=== PATIENT | male | born 1955 | race Caucasian/White ===

== ENCOUNTER 2019-03-03 23:28 | Inpatient (IN) | payer MEDICARE, OTHER ==
[~2019-03-03] VITALS: Ht 177.8 cm; Wt 110.8 kg
[2019-03-03] MEDS ORDERED: nitroGLYCERIN-Tridil 50MG/D5W 250 ML IV ONE (23:45)
[2019-03-03] MEDS ORDERED: enalaprilat dihydrate 2.5mg/2ml vial IV ONE (23:45)
[2019-03-03] MEDS ORDERED: LORazepam 2 mg/ml vial IV ONE (23:45)
[2019-03-04] VITALS (20 sets, daily range): BP systolic 102–137; BP diastolic 44–85
[2019-03-04 00:06] LABS: ABG BASE EXCESS -8.5 mmol/L (-2.0-3.0); ABG HCO3 20.2 mmol/L (22.0-26.0); ABG OXYGEN SATURATION 96.3 % (95-98); ABG PCO2 (T) 54.1 mmHg (35.0-45.0); ABG PO2 (T) 96.2 mmHg (83-108); ALLEN'S TEST Positive; FCOHb 0.7 % (0.5-1.5); FMetHb 0.3 % (0.3-1.12); FO2Hb 95.3 % (94-100); MINUTE VOLUME 24 L/min; RESPIRATORY RATE (OBSERVED) 36 b/min; TOTAL HEMOGLOBIN 14.8 G/dl (14.0-17.9)
--- NOTE | 2019-03-04 00:18 | NUR ---
KIERSTEN [phone] SON
[2019-03-04 00:19] LABS: BASOPHILS % (AUTO) 0.3 % (0-1); EOSINOPHILS # (AUTO) 0.1 X10'3 (0-0.9); EOSINOPHILS % (AUTO) 0.6 % (0-6); HEMATOCRIT 42.9 % (42.0-52.0); LYMPHOCYTES # (AUTO) 1.4 X10'3 (1.1-4.8); LYMPHOCYTES % (AUTO) 10.4 % (21-51); MEAN CORPUSCULAR HEMOGLOBIN 25.7 PG (27.0-31.0); MEAN CORPUSCULAR HGB CONC 32.7 g/dL (33.0-36.5); MEAN CORPUSCULAR VOLUME 78.7 FL (78-98); MEAN PLATELET VOLUME 10.1 FL (7.4-10.4); MONOCYTES # (AUTO) 0.8 X10'3 (0-0.9); MONOCYTES % (AUTO) 5.4 % (2-12); NEUTROPHILS # (AUTO) 11.6 X10'3 (1.8-7.7); NEUTROPHILS % (AUTO) 83.3 % (42-75); PLATELET COUNT 196 X10'3 (140-440); RED BLOOD COUNT 5.45 X10'6 (4.70-6.10); RED CELL DISTRIBUTION WIDTH 14.2 % (11.5-14.5); WHITE BLOOD COUNT 13.9 X10'3 (4.5-11.0)
--- NOTE | 2019-03-04 00:23 | NUR ---
MD MADE AWARE OF PT VSS. VERBAL ORDER TO STOP THE NITRO DRIP. DRIP STOPPED.
[2019-03-04 00:35] LABS: ALANINE AMINOTRANSFERASE 36 U/L (12-78); ALBUMIN 3.9 G/DL (3.4-5.0); ALBUMIN/GLOBULIN RATIO 1.1 (1.1-1.5); ALKALINE PHOSPHATASE 79 IU/L (46-116); ANION GAP 12 (8-16); ASPARTATE AMINO TRANSFERASE 32 U/L (10-37); BILIRUBIN,TOTAL 1.3 MG/DL (0.1-1.0); BLOOD UREA NITROGEN 12 MG/DL (7-18); BUN/CREATININE RATIO 12.9 (5.4-32.0); CALCIUM 8.7 MG/DL (8.5-10.1); CHLORIDE 99 MMOL/L (99-107); CREATININE 0.93 MG/DL (0.60-1.10); GLUCOSE 303 MG/DL (70-104); POTASSIUM 3.7 MMOL/L (3.5-5.1); SODIUM 132 MMOL/L (135-145); TOTAL CARBON DIOXIDE 21.3 MMOL/L (24-32); TOTAL PROTEIN 7.4 G/DL (6.4-8.2); eGFR 82 ML/MIN
[2019-03-04 00:36] LABS: PARTIAL THROMBOPLASTIN TIME 26 SECONDS (22-32)
--- NOTE | 2019-03-04 01:03 | NUR ---
FAMILY IN ROOM; DAUGHTER, SON-KIERSTEN,
--- NOTE | 2019-03-04 01:03 | NUR ---
MADE AWARE OF PT BLOOD PRESSURE. NO NEW ORDERS AT THIS TIME.
[2019-03-04] MEDS ORDERED: DOPamine 400mg/D5W 250ml 250 ML IV SCH (01:15)
--- NOTE | 2019-03-04 02:07 | NUR ---
CENTRAL LINE PLACEMENT CONFIRMED BY DR PINZON USING BUBBLE STUDY. PER MD, NO XRAY ORDER NEEDED TO CONFIRM.
[2019-03-04] MEDS ORDERED: AMLO-94 PO (03:18)
[2019-03-04] MEDS ORDERED: ASPI-1264 PO (03:18)
[2019-03-04] MEDS ORDERED: FLUR30CA13 PO (03:18)
[2019-03-04] MEDS ORDERED: LIT300C PO (03:18)
[2019-03-04] MEDS ORDERED: CHOL100046 PO (03:18)
[2019-03-04] MEDS ORDERED: METF500T PO (03:18)
[2019-03-04] MEDS ORDERED: NORepinephrine 8mg/ 250ml NS 250 ML IV PRN (03:21)
[2019-03-04] MEDS ORDERED: ondansetron/PF 4mg/2ml inj IV PRN (03:25)
[2019-03-04] MEDS ORDERED: MESSAGE TO PHARMACY PO ONE (03:25)
[2019-03-04] MEDS ORDERED: acetaminophen 325mg tablet PO PRN (03:25)
[2019-03-04] MEDS ORDERED: furosemide 10 MG/1 ML 10ml inj IV SCH (03:25)
[2019-03-04] MEDS ORDERED: dextrose ORAL solution 15 GM/59 ML bottle PO PRN ×2 (03:25)
[2019-03-04] MEDS ORDERED: potassium Cl 20mEq/100mL bag 100 ML IV PRN (03:25)
[2019-03-04] MEDS ORDERED: magnesium 2GM in 50ml NS 50 ML IV PRN (03:25)
[2019-03-04] MEDS ORDERED: dextrose 50%-water 50ml dispensing syringe IV PRN ×2 (03:25)
[2019-03-04] MEDS ORDERED: acetaminophen 650mg rectal suppository RC PRN (03:25)
[2019-03-04] MEDS ORDERED: glucagon, human recombinant 1mg kit SUBCUT PRN (03:25)
[2019-03-04] MEDS ORDERED: magnesium 4gm in 100ml NS 100 ML IV PRN (03:25)
[2019-03-04 04:05] LABS: PHOSPHORUS 4.4 MG/DL (2.3-4.5)
[2019-03-04 04:41] LABS: ABG BASE EXCESS -0.8 mmol/L (-2.0-3.0); ABG HCO3 24.5 mmol/L (22.0-26.0); ABG OXYGEN SATURATION 93.9 % (95-98); ABG PCO2 (T) 41.4 mmHg (35.0-45.0); ABG PH (T) 7.386 (7.350-7.450); ABG PO2 (T) 64.1 mmHg (83-108); ALLEN'S TEST Positive; FCOHb 0.5 % (0.5-1.5); FLOW 4 L/min; FMetHb 0.4 % (0.3-1.12); FO2Hb 93.1 % (94-100); PATIENT TEMPERATURE 36.1; RESPIRATORY RATE (OBSERVED) 14 b/min; TOTAL HEMOGLOBIN 13.9 G/dl (14.0-17.9)
[2019-03-04 04:56] LABS: PO2 MIXED VENOUS (TEMP COR) 37.3 mmHg (35-46)
--- NOTE | 2019-03-04 06:40 | NUR ---
Patient in room ICU 2044. I have received report from Lesli SETHI and had the opportunity to ask questions and assume patient care.
--- NOTE | 2019-03-04 06:45 | NUR ---
RECEIVED FROM ER PER BALAJI , ON NBR WITH O2 SATS AT 99 , ALERT AND ORIENTED , BUT STILL SLEEPY HE CLAIMED , ON DOPAMINE AT 3.5 MICS , WITH HOU CATHETER , DRAINING WELL , CHANGE TO LEVO ORDERED AND PLACED ON 4L/NC WITH GOOD O2 SATS AND ABG . ORIENTED TO ROOM , DENIES PAIN AT THIS TIME . REPORT TO REAL SETHI
[2019-03-04] MEDS: docusate sod 100mg capsule PO SCH ×2 (08:46→19:09)
[2019-03-04] MEDS: enoxaparin 40mg/0.4ml syringe SUBCUT SCH (08:47)
[2019-03-04] MEDS: pantoprazole 40 MG vial IV SCH (08:47)
[2019-03-04] MEDS: levoFLOXACIN-Levaquin 500mg/D5 100 ML IV SCH (08:47)
[2019-03-04 09:14] LABS: HEMOGLOBIN A1C 7.1 % (4.5-6.2)
[2019-03-04] MEDS ORDERED: lithium carbonate 300mg SR tablet (LithoBID) PO SCH (11:00)
[2019-03-04] MEDS ORDERED: DOBUTamine-DoBUTrex 500mg/D5W 250 ML IV SCH (11:05)
[2019-03-04 12:44] LABS: ALBUMIN 3.4 G/DL (3.4-5.0); ANION GAP 6 (8-16); BLOOD UREA NITROGEN 11 MG/DL (7-18); BUN/CREATININE RATIO 16.4 (5.4-32.0); CHLORIDE 103 MMOL/L (99-107); CREATININE 0.67 MG/DL (0.60-1.10); GLUCOSE 150 MG/DL (70-104); PHOSPHORUS 3.2 MG/DL (2.3-4.5); POTASSIUM 3.5 MMOL/L (3.5-5.1); SODIUM 137 MMOL/L (135-145); TOTAL CARBON DIOXIDE 27.7 MMOL/L (24-32); eGFR > 90 ML/MIN
[2019-03-04] MEDS ORDERED: AMLO10TA PO (14:08)
[2019-03-04] MEDS ORDERED: TRAZ-219 PO (14:09)
--- NOTE | 2019-03-04 18:28 | NUR ---
Problems reprioritized. Patient report given, questions answered & plan of care reviewed with Ric SETHI.
--- NOTE | 2019-03-04 18:36 | NUR ---
Patient in room ICU 2044. I have received report from Bria SETHI and had the opportunity to ask questions and assume patient care.
[2019-03-04] MEDS: magnesium hydroxide 30ml (MOM) UD suspension PO PRN (19:09)
[2019-03-04] MEDS: lactobacillus rhamnosus 10,000 MMU CELLS/CAPSULE PO SCH (19:09)
[2019-03-04] MEDS: insulin glargine (Lantus) pen - multi-dose SQ SCH (21:11)
[2019-03-04] MEDS: traZODone 50mg tablet PO SCH (21:37)
[2019-03-05] VITALS (19 sets, daily range): BP systolic 109–137; BP diastolic 50–86
[2019-03-05 03:42] LABS: BASOPHILS % (AUTO) 0.4 % (0-1); EOSINOPHILS # (AUTO) 0.1 X10'3 (0-0.9); HEMOGLOBIN 11.6 g/dl (14.0-17.9); LYMPHOCYTES # (AUTO) 1.3 X10'3 (1.1-4.8); LYMPHOCYTES % (AUTO) 23.9 % (21-51); MEAN CORPUSCULAR HEMOGLOBIN 25.9 PG (27.0-31.0); MEAN CORPUSCULAR HGB CONC 33.1 g/dL (33.0-36.5); MEAN CORPUSCULAR VOLUME 78.4 FL (78-98); MEAN PLATELET VOLUME 10.7 FL (7.4-10.4); MONOCYTES # (AUTO) 0.5 X10'3 (0-0.9); MONOCYTES % (AUTO) 10.1 % (2-12); NEUTROPHILS # (AUTO) 3.4 X10'3 (1.8-7.7); NEUTROPHILS % (AUTO) 64.6 % (42-75); PLATELET COUNT 143 X10'3 (140-440); RED BLOOD COUNT 4.46 X10'6 (4.70-6.10); RED CELL DISTRIBUTION WIDTH 13.9 % (11.5-14.5); WHITE BLOOD COUNT 5.3 X10'3 (4.5-11.0)
[2019-03-05 03:53] LABS: ALANINE AMINOTRANSFERASE 23 U/L (12-78); ALBUMIN 3.1 G/DL (3.4-5.0); ALBUMIN/GLOBULIN RATIO 1.1 (1.1-1.5); ALKALINE PHOSPHATASE 57 IU/L (46-116); ANION GAP 7 (8-16); ASPARTATE AMINO TRANSFERASE 12 U/L (10-37); BILIRUBIN,TOTAL 0.8 MG/DL (0.1-1.0); BLOOD UREA NITROGEN 9 MG/DL (7-18); BUN/CREATININE RATIO 14.1 (5.4-32.0); CALCIUM 8.4 MG/DL (8.5-10.1); CHLORIDE 107 MMOL/L (99-107); CREATININE 0.64 MG/DL (0.60-1.10); GLUCOSE 142 MG/DL (70-104); MAGNESIUM 2.2 MG/DL (1.5-2.4); PHOSPHORUS 2.8 MG/DL (2.3-4.5); POTASSIUM 3.5 MMOL/L (3.5-5.1); SODIUM 141 MMOL/L (135-145); TOTAL CARBON DIOXIDE 26.9 MMOL/L (24-32); TOTAL PROTEIN 5.9 G/DL (6.4-8.2); eGFR > 90 ML/MIN
--- NOTE | 2019-03-05 06:31 | NUR ---
Problems reprioritized. Patient report given, questions answered & plan of care reviewed with Jose E SETHI.
--- NOTE | 2019-03-05 06:31 | NUR ---
Patient in room ICU 2044. I have received report from Ric SETHI and had the opportunity to ask questions and assume patient care.
[2019-03-05] MEDS: levoFLOXACIN-Levaquin 500mg/D5 100 ML IV SCH (07:44)
[2019-03-05] MEDS: vitamin D (cholecalciferol) 1,000 unit tablet PO SCH (07:47)
[2019-03-05] MEDS: pantoprazole 40 MG vial IV SCH (07:47)
[2019-03-05] MEDS: docusate sod 100mg capsule PO SCH ×2 (07:47→19:11)
[2019-03-05] MEDS: lactobacillus rhamnosus 10,000 MMU CELLS/CAPSULE PO SCH ×2 (07:47→19:11)
[2019-03-05] MEDS: aspirin 325mg tablet PO SCH (07:47)
[2019-03-05] MEDS: enoxaparin 40mg/0.4ml syringe SUBCUT SCH (07:48)
[2019-03-05] MEDS: insulin Lispro (HumaLOG) vial - multi-dose SQ SCH ×3 (08:11→19:10)
[2019-03-05] MEDS ORDERED: aminophylline 250mg/10ml inj. IV PRN (09:45)
[2019-03-05] MEDS ORDERED: regadenoson 0.4mg/5ml syringe IV ONE (09:45)
[2019-03-05] MEDS ORDERED: nitroGLYCERIN 0.4mg SUBLingual tab SL PRN (09:45)
[2019-03-05] MEDS ORDERED: metoprolol tartrate 1mg/ml inj IV PRN (09:45)
--- NOTE | 2019-03-05 11:47 | NUR ---
DM Consult: A1C 7.1. Pt admit w/ CHF, acute pulmonary edema, global hypokinesis, and pending ronald scan w/ possible DE per MD note. Hx bipolar disorder. Will need DM ed once clinically stable prior to d/c. Addendum: 03/05/19 at [address] Amended: Links added.
--- NOTE | 2019-03-05 16:13 | NUR ---
Patient report given Jayce RN, PCU. Patient to be transferred to Room 3019 with belongings. Patient on room air, VSS, no complaints of pain.
--- NOTE | 2019-03-05 16:14 | NUR ---
RECEIVED REPORT VIA TELEPHONE FROM JOSSIE ROSAS.
--- NOTE | 2019-03-05 16:30 | NUR ---
Patient tranferred to room 3019A with belongings, medications and chart. Patient settled in bed on room air. Jayce SETHI aware.
--- NOTE | 2019-03-05 16:40 | NUR ---
RECEIVED FROM ICU VIA WC. AGREE WITH PRIOR ASSESSMENT. VS STABLE. DENIES PAIN, DIZZINESS, SOB. STATES "I DO GET SOB WITH ACTIVITY".
--- NOTE | 2019-03-05 18:39 | NUR ---
Patient in room PCU 3019. I have received report from Jayce SETHI and had the opportunity to ask questions and assume patient care.
[2019-03-05] MEDS: magnesium hydroxide 30ml (MOM) UD suspension PO PRN (19:11)
[2019-03-05] MEDS: traZODone 50mg tablet PO SCH (20:51)
[2019-03-05] MEDS: acetaminophen 325mg tablet PO PRN (20:54)
[2019-03-05] MEDS: insulin glargine (Lantus) pen - multi-dose SQ SCH (21:21)
[2019-03-06] VITALS (18 sets, daily range): BP systolic 122–152; BP diastolic 63–86
[2019-03-06 06:14] LABS: BASOPHILS % (AUTO) 0.7 % (0-1); EOSINOPHILS # (AUTO) 0.1 X10'3 (0-0.9); EOSINOPHILS % (AUTO) 2.9 % (0-6); HEMATOCRIT 37.3 % (42.0-52.0); HEMOGLOBIN 12.4 g/dl (14.0-17.9); LYMPHOCYTES # (AUTO) 1.3 X10'3 (1.1-4.8); LYMPHOCYTES % (AUTO) 27.4 % (21-51); MEAN CORPUSCULAR HEMOGLOBIN 26.2 PG (27.0-31.0); MEAN CORPUSCULAR HGB CONC 33.4 g/dL (33.0-36.5); MEAN CORPUSCULAR VOLUME 78.6 FL (78-98); MEAN PLATELET VOLUME 10.1 FL (7.4-10.4); MONOCYTES # (AUTO) 0.5 X10'3 (0-0.9); MONOCYTES % (AUTO) 11.1 % (2-12); NEUTROPHILS # (AUTO) 2.8 X10'3 (1.8-7.7); NEUTROPHILS % (AUTO) 57.9 % (42-75); PLATELET COUNT 142 X10'3 (140-440); RED BLOOD COUNT 4.75 X10'6 (4.70-6.10); RED CELL DISTRIBUTION WIDTH 14.2 % (11.5-14.5); WHITE BLOOD COUNT 4.9 X10'3 (4.5-11.0)
--- NOTE | 2019-03-06 06:22 | NUR ---
Problems reprioritized. Patient report given, questions answered & plan of care reviewed with Maria Teresa SETHI.
[2019-03-06 06:25] LABS: ALANINE AMINOTRANSFERASE 23 U/L (12-78); ALBUMIN 3.2 G/DL (3.4-5.0); ALKALINE PHOSPHATASE 61 IU/L (46-116); ANION GAP 9 (8-16); ASPARTATE AMINO TRANSFERASE 14 U/L (10-37); BILIRUBIN,TOTAL 0.5 MG/DL (0.1-1.0); BLOOD UREA NITROGEN 12 MG/DL (7-18); CALCIUM 8.5 MG/DL (8.5-10.1); CHLORIDE 108 MMOL/L (99-107); CREATININE 0.75 MG/DL (0.60-1.10); GLUCOSE 133 MG/DL (70-104); MAGNESIUM 2.2 MG/DL (1.5-2.4); PHOSPHORUS 3.4 MG/DL (2.3-4.5); POTASSIUM 3.9 MMOL/L (3.5-5.1); SODIUM 142 MMOL/L (135-145); TOTAL CARBON DIOXIDE 25.2 MMOL/L (24-32); TOTAL PROTEIN 6.3 G/DL (6.4-8.2); eGFR > 90 ML/MIN
[2019-03-06] MEDS: ipratropium/albuterol 3ml nebule NEB PRN ×2 (08:18→21:10)
[2019-03-06] MEDS: aspirin 325mg tablet PO SCH (11:36)
[2019-03-06] MEDS: vitamin D (cholecalciferol) 1,000 unit tablet PO SCH (11:37)
[2019-03-06] MEDS: docusate sod 100mg capsule PO SCH ×2 (11:37→19:32)
[2019-03-06] MEDS: levoFLOXACIN 500mg tablet PO SCH (11:37)
[2019-03-06] MEDS: lactobacillus rhamnosus 10,000 MMU CELLS/CAPSULE PO SCH ×2 (11:37→19:31)
--- NOTE | 2019-03-06 12:05 | NUR ---
Spoke with Dr. Nestor cárdenasing lexiscan results. Dr. Baez asked me to call and relay a message to Dr. Tirado that the ronald was abnormal. I called Dr. Tirado's office and relayed the message. Will hold off on feeding the patient until further notice from .
--- NOTE | 2019-03-06 12:33 | NUR ---
Pt seen by NAHUM for written/verbal DM ed w/ RD contact information and CDE course information provided. Pt declined verbal review but does agree to attend CDE course. Addendum: 03/06/19 at [address] Amended: Links added.
[2019-03-06] MEDS: enoxaparin 40mg/0.4ml syringe SUBCUT SCH (16:04)
--- NOTE | 2019-03-06 17:02 | NUR ---
Patient did not want his blood sugar checked at 1200. Check sugar later and fed patient, was unable to properly use the protocol to administer insulin safely due to the time discrepancy and time of meal. Also patient had been NPO due to Georgina scan. Will monitor and continue on the protocol for dinner.
--- NOTE | 2019-03-06 18:09 | NUR ---
Problems reprioritized. Patient report given, questions answered & plan of care reviewed with Tiny SETHI. Patient stable at transfer of care.
--- NOTE | 2019-03-06 18:24 | NUR ---
Patient in room PCU 3019. I have received report from Maria Teresa SETHI and had the opportunity to ask questions and assume patient care.
[2019-03-06] MEDS: insulin Lispro (HumaLOG) vial - multi-dose SQ SCH (18:36)
[2019-03-06] MEDS: carVEDilol 3.125mg tablet PO SCH (19:32)
[2019-03-06] MEDS: spironolactone 25 MG tablet PO SCH (19:32)
[2019-03-06] MEDS: furosemide 40mg tablet PO SCH (19:33)
[2019-03-06] MEDS: traZODone 50mg tablet PO SCH (20:55)
[2019-03-06] MEDS: insulin glargine (Lantus) pen - multi-dose SQ SCH (21:00)
--- NOTE | 2019-03-07 01:00 | NUR ---
Patient in room PCU 3019. I have received report from Tiny SETHI and had the opportunity to ask questions and assume patient care. I am in agreement with Tiny's physical assessment.
--- NOTE | 2019-03-07 01:05 | NUR ---
Problems reprioritized. Patient report given, questions answered & plan of care reviewed with Linda SETHI.
[2019-03-07 03:00] VITALS: BP 112/48
[2019-03-07 06:00] LABS: BASOPHILS % (AUTO) 0.8 % (0-1); EOSINOPHILS # (AUTO) 0.1 X10'3 (0-0.9); EOSINOPHILS % (AUTO) 3.4 % (0-6); HEMATOCRIT 37.7 % (42.0-52.0); HEMOGLOBIN 12.3 g/dl (14.0-17.9); LYMPHOCYTES # (AUTO) 1.3 X10'3 (1.1-4.8); MEAN CORPUSCULAR HEMOGLOBIN 25.6 PG (27.0-31.0); MEAN CORPUSCULAR HGB CONC 32.6 g/dL (33.0-36.5); MEAN CORPUSCULAR VOLUME 78.7 FL (78-98); MEAN PLATELET VOLUME 10.3 FL (7.4-10.4); MONOCYTES # (AUTO) 0.4 X10'3 (0-0.9); MONOCYTES % (AUTO) 9.9 % (2-12); NEUTROPHILS # (AUTO) 2.5 X10'3 (1.8-7.7); NEUTROPHILS % (AUTO) 56.9 % (42-75); PLATELET COUNT 138 X10'3 (140-440); RED BLOOD COUNT 4.79 X10'6 (4.70-6.10); RED CELL DISTRIBUTION WIDTH 14.3 % (11.5-14.5); WHITE BLOOD COUNT 4.4 X10'3 (4.5-11.0)
--- NOTE | 2019-03-07 06:15 | NUR ---
Problems reprioritized. Patient report given, questions answered & plan of care reviewed with Maria Teresa SETHI and Vicky SETHI.
--- NOTE | 2019-03-07 06:27 | NUR ---
Patient in room PCU 3019. I have received report from Kay SETHI and had the opportunity to ask questions and assume patient care.
[2019-03-07 06:35] LABS: ALANINE AMINOTRANSFERASE 27 U/L (12-78); ALBUMIN 3.2 G/DL (3.4-5.0); ALKALINE PHOSPHATASE 56 IU/L (46-116); ANION GAP 10 (8-16); ASPARTATE AMINO TRANSFERASE 22 U/L (10-37); BILIRUBIN,TOTAL 0.5 MG/DL (0.1-1.0); BLOOD UREA NITROGEN 14 MG/DL (7-18); BUN/CREATININE RATIO 16.7 (5.4-32.0); CALCIUM 8.7 MG/DL (8.5-10.1); CHLORIDE 107 MMOL/L (99-107); CREATININE 0.84 MG/DL (0.60-1.10); GLUCOSE 147 MG/DL (70-104); MAGNESIUM 2.2 MG/DL (1.5-2.4); PHOSPHORUS 4.5 MG/DL (2.3-4.5); POTASSIUM 4.1 MMOL/L (3.5-5.1); SODIUM 142 MMOL/L (135-145); TOTAL CARBON DIOXIDE 24.6 MMOL/L (24-32); TOTAL PROTEIN 6.5 G/DL (6.4-8.2); eGFR > 90 ML/MIN
[2019-03-07 07:00] VITALS: BP 130/82
[2019-03-07] MEDS ORDERED: lisinopril 10 MG tablet PO SCH ×2 (08:00→20:00)
[2019-03-07] MEDS: furosemide 40mg tablet PO SCH ×2 (08:17→19:32)
[2019-03-07] MEDS: docusate sod 100mg capsule PO SCH ×2 (08:17→19:32)
[2019-03-07] MEDS: carVEDilol 3.125mg tablet PO SCH ×2 (08:17→19:33)
[2019-03-07] MEDS: aspirin 325mg tablet PO SCH (08:17)
[2019-03-07] MEDS: spironolactone 25 MG tablet PO SCH ×2 (08:17→19:32)
[2019-03-07] MEDS: lactobacillus rhamnosus 10,000 MMU CELLS/CAPSULE PO SCH ×2 (08:17→19:32)
[2019-03-07] MEDS: vitamin D (cholecalciferol) 1,000 unit tablet PO SCH (08:18)
[2019-03-07] MEDS: enoxaparin 40mg/0.4ml syringe SUBCUT SCH (08:19)
--- NOTE | 2019-03-07 10:54 | NUR ---
Was unable to administer insulin within an appropriate time after blood glucose and meal. Will continue to monitor.
[2019-03-07 11:00] VITALS: BP 127/81
--- NOTE | 2019-03-07 11:34 | NUR ---
Lilia PICC RN Rm 3019, Luca. Dr. Baez would like patient to have extended IV that draws. [facility] [place].
[2019-03-07] MEDS: levoFLOXACIN 500mg tablet PO SCH (12:01)
[2019-03-07] MEDS: acetaminophen 325mg tablet PO PRN (12:02)
[2019-03-07] MEDS: insulin Lispro (HumaLOG) vial - multi-dose SQ SCH ×2 (13:33→19:28)
--- NOTE | 2019-03-07 18:28 | NUR ---
Problems reprioritized. Patient report given, questions answered & plan of care reviewed with Tiny SETHI. Patient stable at transfer of care.
[2019-03-07 19:00] VITALS: BP 124/72
--- NOTE | 2019-03-07 19:30 | NUR ---
pt blood sugar before dinner was 106 according to the day shift nurses piyush and abhishek Perry wasnt transfer the dinner blood sugar. Pt got 8 units for his nutritional insulin
[2019-03-07] MEDS: traZODone 50mg tablet PO SCH (21:19)
[2019-03-07] MEDS: ipratropium/albuterol 3ml nebule NEB PRN (21:19)
[2019-03-07] MEDS: insulin glargine (Lantus) pen - multi-dose SQ SCH (21:25)
[2019-03-07 23:00] VITALS: BP 106/60
[2019-03-08 03:00] VITALS: BP 131/71
[2019-03-08 06:00] VITALS: BP 124/45
[2019-03-08 06:02] LABS: BASOPHILS # (AUTO) 0.1 X10'3 (0-0.2); BASOPHILS % (AUTO) 1.2 % (0-1); EOSINOPHILS # (AUTO) 0.2 X10'3 (0-0.9); EOSINOPHILS % (AUTO) 4.4 % (0-6); HEMATOCRIT 37.2 % (42.0-52.0); HEMOGLOBIN 12.3 g/dl (14.0-17.9); LYMPHOCYTES # (AUTO) 1.2 X10'3 (1.1-4.8); LYMPHOCYTES % (AUTO) 25.4 % (21-51); MEAN CORPUSCULAR HGB CONC 33.1 g/dL (33.0-36.5); MEAN CORPUSCULAR VOLUME 78.5 FL (78-98); MONOCYTES # (AUTO) 0.5 X10'3 (0-0.9); MONOCYTES % (AUTO) 10.4 % (2-12); NEUTROPHILS # (AUTO) 2.7 X10'3 (1.8-7.7); NEUTROPHILS % (AUTO) 58.6 % (42-75); PLATELET COUNT 103 X10'3 (140-440); RED BLOOD COUNT 4.74 X10'6 (4.70-6.10); RED CELL DISTRIBUTION WIDTH 14.3 % (11.5-14.5); WHITE BLOOD COUNT 4.6 X10'3 (4.5-11.0)
[2019-03-08 06:18] LABS: ALANINE AMINOTRANSFERASE 34 U/L (12-78); ALBUMIN 3.2 G/DL (3.4-5.0); ALKALINE PHOSPHATASE 57 IU/L (46-116); ANION GAP 12 (8-16); ASPARTATE AMINO TRANSFERASE 31 U/L (10-37); BILIRUBIN,TOTAL 0.5 MG/DL (0.1-1.0); BLOOD UREA NITROGEN 16 MG/DL (7-18); BUN/CREATININE RATIO 19.5 (5.4-32.0); CALCIUM 9.1 MG/DL (8.5-10.1); CHLORIDE 107 MMOL/L (99-107); CREATININE 0.82 MG/DL (0.60-1.10); GLUCOSE 150 MG/DL (70-104); MAGNESIUM 2.3 MG/DL (1.5-2.4); PHOSPHORUS 4.6 MG/DL (2.3-4.5); POTASSIUM 4.3 MMOL/L (3.5-5.1); SODIUM 139 MMOL/L (135-145); TOTAL CARBON DIOXIDE 20.5 MMOL/L (24-32); TOTAL PROTEIN 6.4 G/DL (6.4-8.2); eGFR > 90 ML/MIN
--- NOTE | 2019-03-08 06:30 | NUR ---
Patient in room PCU 3019. I have received report from Tiny SETHI and had the opportunity to ask questions and assume patient care.
[2019-03-08] MEDS: acetaminophen 325mg tablet PO PRN ×2 (07:55→20:18)
[2019-03-08] MEDS: aspirin 325mg tablet PO SCH (08:09)
[2019-03-08] MEDS: furosemide 40mg tablet PO SCH ×2 (08:10→20:16)
[2019-03-08 08:13] LABS: LARGE PLATELETS FEW; PLATELET ESTIMATE DECREASED
[2019-03-08] MEDS: lisinopril 10 MG tablet PO SCH (08:13)
[2019-03-08] MEDS: carVEDilol 3.125mg tablet PO SCH ×2 (08:14→20:16)
[2019-03-08] MEDS: vitamin D (cholecalciferol) 1,000 unit tablet PO SCH (08:14)
[2019-03-08] MEDS: spironolactone 25 MG tablet PO SCH ×2 (08:14→20:17)
[2019-03-08] MEDS: docusate sod 100mg capsule PO SCH ×2 (08:15→20:16)
[2019-03-08] MEDS: lactobacillus rhamnosus 10,000 MMU CELLS/CAPSULE PO SCH ×2 (08:15→20:19)
[2019-03-08] MEDS: enoxaparin 40mg/0.4ml syringe SUBCUT SCH (08:19)
[2019-03-08] MEDS: insulin Lispro (HumaLOG) vial - multi-dose SQ SCH ×2 (09:47→18:44)
[2019-03-08] MEDS: levoFLOXACIN 500mg tablet PO SCH (11:13)
[2019-03-08 11:26] VITALS: BP 110/54
[2019-03-08 15:00] VITALS: BP 107/54
--- NOTE | 2019-03-08 17:37 | NUR ---
Midline placed to right basilic vein x's 1 attempt with success, tip ending mid axilla. Catheter is a picc catheter cut to midline length and is not considered a central line, rn educated on use. ELI SETHI Addendum: 03/08/19 at 1739 by Isatu Hernandez RN Amended: Links added.
--- NOTE | 2019-03-08 17:57 | NUR ---
[place] documentation: I have reviewed and agree with all interventions, assessments performed and documented by JOSSIE Perry. [place] Medication Administration: For this medication-pass time frame, all medication were reviewed, dispensed, administered and documented per hospital policy by JOSSIE Perry.
[2019-03-08 18:00] VITALS: BP 122/70
--- NOTE | 2019-03-08 18:20 | NUR ---
Problems reprioritized. Patient report given, questions answered & plan of care reviewed with Janes SETHI.
--- NOTE | 2019-03-08 18:33 | NUR ---
Patient in room PCU 3019. I have received report from JOSSIE Jackson and had the opportunity to ask questions and assume patient care.
[2019-03-08] MEDS: insulin glargine (Lantus) pen - multi-dose SQ SCH (21:23)
[2019-03-08] MEDS: traZODone 50mg tablet PO SCH (21:31)
[2019-03-08 22:00] VITALS: BP 116/69
[2019-03-09] VITALS (14 sets, daily range): BP systolic 99–136; BP diastolic 42–73
--- NOTE | 2019-03-09 03:30 | NUR ---
Episodes of sinus bradycardia in low 50's nonsustained.
[2019-03-09 05:06] LABS: ALANINE AMINOTRANSFERASE 41 U/L (12-78); ALBUMIN 3.3 G/DL (3.4-5.0); ALKALINE PHOSPHATASE 58 IU/L (46-116); ANION GAP 8 (8-16); ASPARTATE AMINO TRANSFERASE 28 U/L (10-37); BILIRUBIN,TOTAL 0.4 MG/DL (0.1-1.0); BLOOD UREA NITROGEN 19 MG/DL (7-18); BUN/CREATININE RATIO 20.4 (5.4-32.0); CALCIUM 8.8 MG/DL (8.5-10.1); CHLORIDE 107 MMOL/L (99-107); CREATININE 0.93 MG/DL (0.60-1.10); GLUCOSE 153 MG/DL (70-104); MAGNESIUM 2.1 MG/DL (1.5-2.4); PHOSPHORUS 4.6 MG/DL (2.3-4.5); POTASSIUM 4.7 MMOL/L (3.5-5.1); SODIUM 143 MMOL/L (135-145); TOTAL CARBON DIOXIDE 28.1 MMOL/L (24-32); TOTAL PROTEIN 6.6 G/DL (6.4-8.2); eGFR 82 ML/MIN
--- NOTE | 2019-03-09 06:06 | NUR ---
Problems reprioritized. Patient report given, questions answered & plan of care reviewed with JOSSIE Jackson.
[2019-03-09] MEDS: enoxaparin 40mg/0.4ml syringe SUBCUT SCH (06:24)
[2019-03-09] MEDS: aspirin 325mg tablet PO SCH (06:24)
[2019-03-09 06:54] LABS: BASOPHILS % (AUTO) 0.7 % (0-1); EOSINOPHILS # (AUTO) 0.2 X10'3 (0-0.9); EOSINOPHILS % (AUTO) 3.8 % (0-6); HEMATOCRIT 40.3 % (42.0-52.0); HEMOGLOBIN 13.2 g/dl (14.0-17.9); LYMPHOCYTES # (AUTO) 1.3 X10'3 (1.1-4.8); LYMPHOCYTES % (AUTO) 22.3 % (21-51); MEAN CORPUSCULAR HEMOGLOBIN 25.7 PG (27.0-31.0); MEAN CORPUSCULAR HGB CONC 32.8 g/dL (33.0-36.5); MEAN CORPUSCULAR VOLUME 78.3 FL (78-98); MEAN PLATELET VOLUME 10.3 FL (7.4-10.4); MONOCYTES # (AUTO) 0.6 X10'3 (0-0.9); MONOCYTES % (AUTO) 10.3 % (2-12); NEUTROPHILS # (AUTO) 3.5 X10'3 (1.8-7.7); NEUTROPHILS % (AUTO) 62.9 % (42-75); PLATELET COUNT 160 X10'3 (140-440); RED BLOOD COUNT 5.15 X10'6 (4.70-6.10); RED CELL DISTRIBUTION WIDTH 14.2 % (11.5-14.5); WHITE BLOOD COUNT 5.6 X10'3 (4.5-11.0)
[2019-03-09] MEDS: lactobacillus rhamnosus 10,000 MMU CELLS/CAPSULE PO SCH ×2 (07:48→20:49)
[2019-03-09] MEDS: carVEDilol 3.125mg tablet PO SCH ×2 (07:48→20:49)
[2019-03-09] MEDS: spironolactone 25 MG tablet PO SCH ×2 (07:48→20:49)
[2019-03-09] MEDS: docusate sod 100mg capsule PO SCH ×2 (07:49→20:49)
[2019-03-09] MEDS: furosemide 40mg tablet PO SCH ×2 (07:49→20:49)
[2019-03-09] MEDS: lisinopril 10 MG tablet PO SCH (07:49)
[2019-03-09] MEDS: vitamin D (cholecalciferol) 1,000 unit tablet PO SCH (07:51)
[2019-03-09] MEDS: acetaminophen 325mg tablet PO PRN (07:53)
--- NOTE | 2019-03-09 10:30 | NUR ---
Initial: Pt presents with c/o SOB and admit with respiratory distress and CHF with EF 35-50%. Pt with BLE edema which is improving with diuresing per MD notes. Pt to get a heart cath per MD notes. Pt currently on CHO controlled 2 gm Na restricted diet documented with 75-100% PO intake meeting nutrient needs. LBM 03/08. No nutrition diagnosis at this time. Will continue to follow. Recommendations: 1) Continue CHO controlled 2 gm Na restricted diet 2) Wt per rx Addendum: 03/09/19 at [address] Amended: Links added.
[2019-03-09] MEDS ORDERED: midazolam 2 mg/2 ml injection ONE ×2 (13:04→13:39)
[2019-03-09] MEDS ORDERED: fentaNYL/PF 50MCG/1 ML 2ML syringe ONE (13:04)
[2019-03-09] MEDS ORDERED: iohexol 350 MG/ML 50ML vial IV ONE ×2 (13:04→13:54)
[2019-03-09] MEDS ORDERED: iohexol 350MG/ML 100ml bottle IV ONE (13:04)
[2019-03-09] MEDS ORDERED: LIDOcaine 1% 30ml preserv. free vial ONE (13:04)
[2019-03-09] MEDS ORDERED: proCHLORperazine 10 MG/2 ml inj IV PRN (15:00)
[2019-03-09] MEDS ORDERED: OXAZEpam 15mg capsule PO PRN (15:00)
[2019-03-09] MEDS ORDERED: sodium chloride 0.45% 1,000 ML IV ONE (15:05)
[2019-03-09] MEDS ORDERED: HYDROcodone/acetaminophen 10/325mg tab PO PRN (15:25)
[2019-03-09] MEDS: HYDROcodone/acetaminophen 5mg/325mg tablet PO PRN ×2 (15:41→20:51)
--- NOTE | 2019-03-09 18:02 | NUR ---
Problems reprioritized. Patient report given, questions answered & plan of care reviewed with Carolyn SETHI. Patient stable at transfer of care, eating dinner currently. Laying flat.
--- NOTE | 2019-03-09 18:26 | NUR ---
Patient in room PCU 3019. I have received report from Renetta SETHI and had the opportunity to ask questions and assume patient care. Problems reprioritized. Patient report given, questions answered & plan of care reviewed with Cesario SETHI.
[2019-03-09] MEDS: insulin Lispro (HumaLOG) vial - multi-dose SQ SCH (19:47)
[2019-03-09] MEDS: traZODone 50mg tablet PO SCH (21:00)
[2019-03-09] MEDS: insulin glargine (Lantus) pen - multi-dose SQ SCH (22:43)
[2019-03-10] VITALS (8 sets, daily range): BP systolic 93–120; BP diastolic 52–69
[2019-03-10 06:03] LABS: BASOPHILS % (AUTO) 0.2 % (0-1); EOSINOPHILS % (AUTO) 0.1 % (0-6); HEMATOCRIT 37.6 % (42.0-52.0); HEMOGLOBIN 12.3 g/dl (14.0-17.9); MEAN CORPUSCULAR HEMOGLOBIN 25.6 PG (27.0-31.0); MEAN CORPUSCULAR HGB CONC 32.6 g/dL (33.0-36.5); MEAN CORPUSCULAR VOLUME 78.6 FL (78-98); MONOCYTES # (AUTO) 1.4 X10'3 (0-0.9); MONOCYTES % (AUTO) 15.9 % (2-12); NEUTROPHILS # (AUTO) 6.3 X10'3 (1.8-7.7); NEUTROPHILS % (AUTO) 72.8 % (42-75); PLATELET COUNT 158 X10'3 (140-440); RED BLOOD COUNT 4.78 X10'6 (4.70-6.10); RED CELL DISTRIBUTION WIDTH 14.3 % (11.5-14.5); WHITE BLOOD COUNT 8.6 X10'3 (4.5-11.0)
--- NOTE | 2019-03-10 06:16 | NUR ---
Patient in room PCU 3019. I have received report from Cesario SETHI and had the opportunity to ask questions and assume patient care. pt in bed sleeping
[2019-03-10 06:23] LABS: ALANINE AMINOTRANSFERASE 42 U/L (12-78); ALBUMIN 3.2 G/DL (3.4-5.0); ALBUMIN/GLOBULIN RATIO 0.9 (1.1-1.5); ALKALINE PHOSPHATASE 59 IU/L (46-116); ANION GAP 9 (8-16); ASPARTATE AMINO TRANSFERASE 29 U/L (10-37); BILIRUBIN,TOTAL 0.9 MG/DL (0.1-1.0); BLOOD UREA NITROGEN 19 MG/DL (7-18); CALCIUM 8.7 MG/DL (8.5-10.1); CHLORIDE 104 MMOL/L (99-107); CREATININE 0.95 MG/DL (0.60-1.10); GLUCOSE 158 MG/DL (70-104); MAGNESIUM 2.3 MG/DL (1.5-2.4); PHOSPHORUS 3.7 MG/DL (2.3-4.5); SODIUM 139 MMOL/L (135-145); TOTAL CARBON DIOXIDE 26.2 MMOL/L (24-32); TOTAL PROTEIN 6.6 G/DL (6.4-8.2); eGFR 80 ML/MIN
[2019-03-10] MEDS: aspirin 325mg tablet PO SCH (07:32)
[2019-03-10] MEDS: docusate sod 100mg capsule PO SCH ×2 (07:32→20:50)
[2019-03-10] MEDS: vitamin D (cholecalciferol) 1,000 unit tablet PO SCH (07:33)
[2019-03-10] MEDS: spironolactone 25 MG tablet PO SCH ×2 (07:34→20:50)
[2019-03-10] MEDS: furosemide 40mg tablet PO SCH ×2 (07:34→20:50)
[2019-03-10] MEDS: lisinopril 10 MG tablet PO SCH ×2 (07:34→20:49)
[2019-03-10] MEDS: lactobacillus rhamnosus 10,000 MMU CELLS/CAPSULE PO SCH ×2 (07:34→20:50)
[2019-03-10] MEDS: carVEDilol 3.125mg tablet PO SCH (07:34)
[2019-03-10] MEDS: insulin Lispro (HumaLOG) vial - multi-dose SQ SCH ×3 (08:34→19:32)
[2019-03-10] MEDS ORDERED: SPIR25TA PO (15:47)
[2019-03-10] MEDS ORDERED: NITR0.4T51 SL (15:47)
[2019-03-10] MEDS ORDERED: FURO40TA4 PO (15:47)
--- NOTE | 2019-03-10 17:18 | NUR ---
biofuels production technician reports pt has 21 beats of VTACH, pt is asymptamatic, Called Dr. Tirado office to inform him of it.
--- NOTE | 2019-03-10 17:45 | NUR ---
Spoke w/ Dr. Tirado and Dr. Henry in regards to pt 21 beats of V-tach, no new orders received.
--- NOTE | 2019-03-10 18:39 | NUR ---
Problems reprioritized. Patient report given, questions answered & plan of care reviewed with ryan chaudhary.
[2019-03-10] MEDS: traZODone 50mg tablet PO SCH (20:44)
[2019-03-10] MEDS: carvedilol 6.25mg tablet PO SCH (20:45)
[2019-03-10] MEDS: HYDROcodone/acetaminophen 5mg/325mg tablet PO PRN (20:46)
[2019-03-10] MEDS: insulin glargine (Lantus) pen - multi-dose SQ SCH (21:07)
[2019-03-11 03:00] VITALS: BP 112/60
[2019-03-11 06:00] VITALS: BP 112/55
[2019-03-11] MEDS: lactobacillus rhamnosus 10,000 MMU CELLS/CAPSULE PO SCH ×2 (08:20→20:44)
[2019-03-11] MEDS: lisinopril 10 MG tablet PO SCH ×2 (08:20→20:45)
[2019-03-11] MEDS: aspirin 325mg tablet PO SCH (08:20)
[2019-03-11] MEDS: furosemide 40mg tablet PO SCH ×2 (08:20→20:53)
[2019-03-11] MEDS: spironolactone 25 MG tablet PO SCH ×2 (08:20→20:45)
[2019-03-11] MEDS: docusate sod 100mg capsule PO SCH ×2 (08:20→20:45)
[2019-03-11] MEDS: carvedilol 6.25mg tablet PO SCH (08:20)
[2019-03-11] MEDS: vitamin D (cholecalciferol) 1,000 unit tablet PO SCH (08:21)
[2019-03-11] MEDS: insulin Lispro (HumaLOG) vial - multi-dose SQ SCH ×3 (08:29→19:21)
[2019-03-11] MEDS: ipratropium/albuterol 3ml nebule NEB PRN (10:51)
[2019-03-11 11:00] VITALS: BP 106/57
--- NOTE | 2019-03-11 12:13 | NUR ---
PAGER ID: [phone] MESSAGE: [id number] Hunter Segovia: KLAUS BP is , thanks Kena [phone]
[2019-03-11 15:00] VITALS: BP 104/59
--- NOTE | 2019-03-11 18:18 | NUR ---
Patient in room PCU 3019. I have received report from JOSSIE Escudero and had the opportunity to ask questions and assume patient care.
--- NOTE | 2019-03-11 18:22 | NUR ---
Problems reprioritized. Patient report given, questions answered & plan of care reviewed with Laurita SETHI.
[2019-03-11 19:00] VITALS: BP 111/61
[2019-03-11] MEDS: traZODone 50mg tablet PO SCH (20:44)
[2019-03-11] MEDS: carVEDilol 12.5mg tablet PO SCH (20:44)
[2019-03-11] MEDS: HYDROcodone/acetaminophen 5mg/325mg tablet PO PRN (20:53)
[2019-03-11] MEDS: insulin glargine (Lantus) pen - multi-dose SQ SCH (21:58)
[2019-03-11 23:00] VITALS: BP 97/56
[2019-03-12 03:00] VITALS: BP 93/54
--- NOTE | 2019-03-12 06:15 | NUR ---
Problems reprioritized. Patient report given, questions answered & plan of care reviewed with JOSSIE Morel.
--- NOTE | 2019-03-12 06:15 | NUR ---
Patient in room PCU 3019. I have received report from JOSSIE JOHNSON and had the opportunity to ask questions and assume patient care.
--- NOTE | 2019-03-12 06:25 | NUR ---
Patient in room PCU 3019. I have received report from Laurita SETHI and had the opportunity to ask questions and assume patient care.
[2019-03-12 07:00] VITALS: BP 110/62
[2019-03-12 08:14] LABS: BASOPHILS % (AUTO) 0.7 % (0-1); EOSINOPHILS # (AUTO) 0.4 X10'3 (0-0.9); EOSINOPHILS % (AUTO) 8.1 % (0-6); HEMATOCRIT 41.7 % (42.0-52.0); HEMOGLOBIN 13.6 g/dl (14.0-17.9); LYMPHOCYTES # (AUTO) 1.4 X10'3 (1.1-4.8); LYMPHOCYTES % (AUTO) 27.2 % (21-51); MEAN CORPUSCULAR HEMOGLOBIN 25.7 PG (27.0-31.0); MEAN CORPUSCULAR HGB CONC 32.5 g/dL (33.0-36.5); MEAN CORPUSCULAR VOLUME 79.1 FL (78-98); MEAN PLATELET VOLUME 9.9 FL (7.4-10.4); MONOCYTES # (AUTO) 0.7 X10'3 (0-0.9); MONOCYTES % (AUTO) 12.9 % (2-12); NEUTROPHILS # (AUTO) 2.6 X10'3 (1.8-7.7); NEUTROPHILS % (AUTO) 51.1 % (42-75); PLATELET COUNT 193 X10'3 (140-440); RED BLOOD COUNT 5.28 X10'6 (4.70-6.10); RED CELL DISTRIBUTION WIDTH 14.2 % (11.5-14.5); WHITE BLOOD COUNT 5.2 X10'3 (4.5-11.0)
[2019-03-12 08:19] LABS: GLUCOSE 133 MG/DL (70-104); POTASSIUM 4.2 MMOL/L (3.5-5.1); SODIUM 139 MMOL/L (135-145)
[2019-03-12 08:20] LABS: ALANINE AMINOTRANSFERASE 41 U/L (12-78); ALBUMIN 3.5 G/DL (3.4-5.0); ALBUMIN/GLOBULIN RATIO 0.9 (1.1-1.5); ALKALINE PHOSPHATASE 61 IU/L (46-116); ANION GAP 8 (8-16); ASPARTATE AMINO TRANSFERASE 24 U/L (10-37); BILIRUBIN,TOTAL 0.7 MG/DL (0.1-1.0); BLOOD UREA NITROGEN 26 MG/DL (7-18); BUN/CREATININE RATIO 27.7 (5.4-32.0); CALCIUM 9.2 MG/DL (8.5-10.1); CHLORIDE 103 MMOL/L (99-107); CREATININE 0.94 MG/DL (0.60-1.10); MAGNESIUM 2.2 MG/DL (1.5-2.4); PHOSPHORUS 4.7 MG/DL (2.3-4.5); TOTAL PROTEIN 7.5 G/DL (6.4-8.2); eGFR 81 ML/MIN
[2019-03-12] MEDS: insulin Lispro (HumaLOG) vial - multi-dose SQ SCH ×2 (09:02→12:57)
[2019-03-12] MEDS: docusate sod 100mg capsule PO SCH (09:04)
[2019-03-12] MEDS: carVEDilol 12.5mg tablet PO SCH (09:04)
[2019-03-12] MEDS: spironolactone 25 MG tablet PO SCH (09:04)
[2019-03-12] MEDS: lactobacillus rhamnosus 10,000 MMU CELLS/CAPSULE PO SCH (09:04)
[2019-03-12] MEDS: aspirin 325mg tablet PO SCH (09:06)
[2019-03-12] MEDS: lisinopril 10 MG tablet PO SCH (09:07)
[2019-03-12] MEDS: furosemide 40mg tablet PO SCH (09:07)
[2019-03-12] MEDS: vitamin D (cholecalciferol) 1,000 unit tablet PO SCH (09:13)
[2019-03-12 11:00] VITALS: BP 89/54
[2019-03-12] MEDS ORDERED: COR3.125T PO (14:33)
[2019-03-12] MEDS ORDERED: LISI10TA4 PO (14:33)
[2019-03-12 15:00] VITALS: BP 100/60
[2019-03-12] MEDS ORDERED: CARV-50 PO (15:49)
[2019-03-12] MEDS ORDERED: LISI-643 PO (15:49)
--- NOTE | 2019-03-12 16:45 | NUR ---
Patient discharged at 1645 home with daughter. Patient reviewed discharge packet before signing and all belongings were sent home with patient. Rx was called in to [facility] on [address], patient requested to call for his own follow up appointments. Telemetry monitoring was d/c'd and Midline PIV was removed with catheter intact. Patient was wheeled down by staff and left via private vehicle with daughter.
== END 2019-03-12 16:44 | disposition home or self-care (01) | DRG 286 ==
LOC: ER 23:29 → ICU 2S 03-04 04:10 → MERGE 03-04 04:10 → PCU 3S 03-05 16:34
PROVIDERS: ADMIT Internal Medicine Critical Care Medicine; ATTEND Internal Medicine
PROC: 5A09357 Assistance with Respiratory Ventilation, Less than 24 Consecutive Hours, Continuous Positive Airway Pressure (ICD-10-PCS; 2019-03-03)
PROC: 02HV33Z Insertion of Infusion Device into Superior Vena Cava, Percutaneous Approach (ICD-10-PCS; 2019-03-04)
PROC: B548ZZA Ultrasonography of Superior Vena Cava, Guidance (ICD-10-PCS; 2019-03-04)
PROC: 5A09357 Assistance with Respiratory Ventilation, Less than 24 Consecutive Hours, Continuous Positive Airway Pressure (ICD-10-PCS; 2019-03-04)
PROC: 3E033HZ Introduction of Radioactive Substance into Peripheral Vein, Percutaneous Approach (ICD-10-PCS; 2019-03-06)
PROC: 4A02XM4 Measurement of Cardiac Total Activity, External Approach (ICD-10-PCS; 2019-03-06)
PROC: 4A023N7 Measurement of Cardiac Sampling and Pressure, Left Heart, Percutaneous Approach (ICD-10-PCS; principal; 2019-03-09)
PROC: B2111ZZ Fluoroscopy of Multiple Coronary Arteries using Low Osmolar Contrast (ICD-10-PCS; 2019-03-09)
PROC: B2151ZZ Fluoroscopy of Left Heart using Low Osmolar Contrast (ICD-10-PCS; 2019-03-09)
PROC: B3101ZZ Fluoroscopy of Thoracic Aorta using Low Osmolar Contrast (ICD-10-PCS; 2019-03-09)
PROC: B41F1ZZ Fluoroscopy of Right Lower Extremity Arteries using Low Osmolar Contrast (ICD-10-PCS; 2019-03-09)
DX: I11.0 Hypertensive heart disease with heart failure (principal); R57.0 Cardiogenic shock; J96.21 Acute and chronic respiratory failure with hypoxia; E87.1 Hypo-osmolality and hyponatremia; I47.2 Ventricular tachycardia; E87.4 Mixed disorder of acid-base balance; I50.23 Acute on chronic systolic (congestive) heart failure; I42.8 Other cardiomyopathies; E11.9 Type 2 diabetes mellitus without complications; E66.9 Obesity, unspecified; E78.00 Pure hypercholesterolemia, unspecified; E78.5 Hyperlipidemia, unspecified; F12.90 Cannabis use, unspecified, uncomplicated; F17.200 Nicotine dependence, unspecified, uncomplicated; F31.9 Bipolar disorder, unspecified; M54.9 Dorsalgia, unspecified; G89.29 Other chronic pain; I50.82 Biventricular heart failure; J44.9 Chronic obstructive pulmonary disease, unspecified; Z79.899 Other long term (current) drug therapy; Z88.5 Allergy status to narcotic agent; Z79.82 Long term (current) use of aspirin; Z86.718 Personal history of other venous thrombosis and embolism; Z68.35 Body mass index [BMI] 35.0-35.9, adult
CPT/HCPCS: 36415; 36556; 36600; 71045; 76937; 78452; 80053; 80069; 80178; 82803; 82810; 82948; 83036; 83605; 83735; 83880; 84100; 84439; 84443; 84480; 84484; 85018; 85025; 85347; 85610; 85730; 87040; 87081; 93005; 93017; 93306; 93458; 93567; 93970; 94640; 94660; 94760; 96365; 96375; 97162; 97530; 99152; 99153; 99291; A4620; A6258; A9500; C1760; C1769; C9113; G0378; J0280; J1250; J1265; J1644; J1650; J1815; J1940; J1956; J2001; J2060; J2250; J2785; J3010; J3490; Q9967

== ENCOUNTER 2019-07-19 13:34 | Emergency (ER) | payer MEDICARE ==
[~2019-07-19] VITALS: Ht 177.8 cm; Wt 115.0 kg
[~2019-07-19 13:34] MED LIST: ASPI-1264 PO; CARV-50 PO; CHOL100046 PO; FURO40TA4 PO; LISI-643 PO; METF500T PO; NITR0.4T51 SL; SPIR25TA PO; TRAZ-256 PO
[2019-07-19] MEDS ORDERED: aspirin 81mg tab.chew PO ONE (13:45)
--- NOTE | 2019-07-19 13:56 | NUR ---
assisting with pt care, pt said he already had aspirin 324mg today, pt is resting quietly on gurney, resp even and unlabored, gave pt warm blanket
[2019-07-19 14:07] LABS: BASOPHILS # (AUTO) 0.1 X10'3 (0-0.2); BASOPHILS % (AUTO) 0.8 % (0-1); EOSINOPHILS # (AUTO) 0.2 X10'3 (0-0.9); EOSINOPHILS % (AUTO) 2.2 % (0-6); HEMATOCRIT 42.1 % (42.0-52.0); LYMPHOCYTES % (AUTO) 28.1 % (21-51); MEAN CORPUSCULAR HEMOGLOBIN 26.1 PG (27.0-31.0); MEAN CORPUSCULAR HGB CONC 33.4 g/dL (33.0-36.5); MEAN CORPUSCULAR VOLUME 78.1 FL (78-98); MEAN PLATELET VOLUME 9.2 FL (7.4-10.4); MONOCYTES # (AUTO) 0.7 X10'3 (0-0.9); MONOCYTES % (AUTO) 10.2 % (2-12); NEUTROPHILS # (AUTO) 4.2 X10'3 (1.8-7.7); NEUTROPHILS % (AUTO) 58.7 % (42-75); PLATELET COUNT 187 X10'3 (140-440); RED BLOOD COUNT 5.38 X10'6 (4.70-6.10); RED CELL DISTRIBUTION WIDTH 14.3 % (11.5-14.5); WHITE BLOOD COUNT 7.2 X10'3 (4.5-11.0)
[2019-07-19 14:18] LABS: ALANINE AMINOTRANSFERASE 22 U/L (12-78); ALBUMIN 3.5 G/DL (3.4-5.0); ALKALINE PHOSPHATASE 73 IU/L (46-116); ANION GAP 7 (8-16); ASPARTATE AMINO TRANSFERASE 15 U/L (10-37); BILIRUBIN,TOTAL 0.4 MG/DL (0.1-1.0); BLOOD UREA NITROGEN 18 MG/DL (7-18); BUN/CREATININE RATIO 18.2 (5.4-32.0); CALCIUM 8.2 MG/DL (8.5-10.1); CHLORIDE 95 MMOL/L (99-107); CREATININE 0.99 MG/DL (0.60-1.10); GLUCOSE 138 MG/DL (70-104); POTASSIUM 4.6 MMOL/L (3.5-5.1); SODIUM 129 MMOL/L (135-145); TOTAL CARBON DIOXIDE 27.1 MMOL/L (24-32); eGFR 76 ML/MIN
[2019-07-19] MEDS ORDERED: normal saline 1000ML IV soln IVB ONE (14:30)
[2019-07-19 15:45] VITALS: BP 141/71
== END 2019-07-19 16:07 | disposition home or self-care (01) ==
LOC: ER 13:34
DX: E87.1 Hypo-osmolality and hyponatremia (principal); E86.0 Dehydration; I10 Essential (primary) hypertension; E11.9 Type 2 diabetes mellitus without complications; G89.29 Other chronic pain; Z86.711 Personal history of pulmonary embolism; Z88.5 Allergy status to narcotic agent; Z88.8 Allergy status to other drugs, medicaments and biological substances; Z79.82 Long term (current) use of aspirin; Z79.899 Other long term (current) drug therapy; Z79.84 Long term (current) use of oral hypoglycemic drugs
CPT/HCPCS: 36415; 70450; 71045; 80053; 83880; 84484; 85025; 85610; 93005; 96360; 99284; J7030

== ENCOUNTER 2019-12-06 12:05 | Emergency (ER) | payer MEDICARE ==
[~2019-12-06] VITALS: Ht 172.7 cm; Wt 96.0 kg
[~2019-12-06 12:05] MED LIST changes: +ASPI-1 PO; -ASPI-1264 PO; +ATOR10TA PO; -CARV-50 PO; +CARV6.253 PO; -CHOL100046 PO; +DULO60CA65 PO; -FURO40TA4 PO; +LISI-642 PO; -LISI-643 PO; +LURA20TA PO; +METF-950 PO; -METF500T PO; -NITR0.4T51 SL; +PRIM50TA3 PO; -SPIR25TA PO
[2019-12-06 12:43] LABS: BASOPHILS % (AUTO) 0.7 % (0-1); EOSINOPHILS # (AUTO) 0.2 X10'3 (0-0.9); EOSINOPHILS % (AUTO) 2.2 % (0-6); HEMATOCRIT 41.1 % (42.0-52.0); HEMOGLOBIN 13.6 g/dl (14.0-17.9); LYMPHOCYTES # (AUTO) 1.7 X10'3 (1.1-4.8); LYMPHOCYTES % (AUTO) 23.8 % (21-51); MEAN CORPUSCULAR HEMOGLOBIN 26.5 PG (27.0-31.0); MEAN CORPUSCULAR HGB CONC 33.1 g/dL (33.0-36.5); MEAN CORPUSCULAR VOLUME 79.9 FL (78-98); MEAN PLATELET VOLUME 9.1 FL (7.4-10.4); MONOCYTES # (AUTO) 0.6 X10'3 (0-0.9); MONOCYTES % (AUTO) 8.1 % (2-12); NEUTROPHILS # (AUTO) 4.6 X10'3 (1.8-7.7); NEUTROPHILS % (AUTO) 65.2 % (42-75); PLATELET COUNT 188 X10'3 (140-440); RED BLOOD COUNT 5.15 X10'6 (4.70-6.10); RED CELL DISTRIBUTION WIDTH 13.6 % (11.5-14.5); WHITE BLOOD COUNT 7.1 X10'3 (4.5-11.0)
[2019-12-06 12:56] LABS: ALANINE AMINOTRANSFERASE 27 U/L (12-78); ALBUMIN 3.9 G/DL (3.4-5.0); ALBUMIN/GLOBULIN RATIO 1.2 (1.1-1.5); ALKALINE PHOSPHATASE 62 IU/L (46-116); ANION GAP 9 (8-16); ASPARTATE AMINO TRANSFERASE 18 U/L (10-37); BILIRUBIN,TOTAL 0.6 MG/DL (0.1-1.0); BLOOD UREA NITROGEN 14 MG/DL (7-18); BUN/CREATININE RATIO 18.9 (5.4-32.0); CHLORIDE 100 MMOL/L (99-107); CREATININE 0.74 MG/DL (0.60-1.10); ETHANOL < 0.010 GM/DL (0.0-0.010); GLUCOSE 124 MG/DL (70-104); POTASSIUM 4.4 MMOL/L (3.5-5.1); SODIUM 134 MMOL/L (135-145); TOTAL CARBON DIOXIDE 25.4 MMOL/L (24-32); TOTAL PROTEIN 7.1 G/DL (6.4-8.2); eGFR > 90 ML/MIN
--- NOTE | 2019-12-06 14:30 | NUR ---
Pt denies complaints at this time. In line of sight of nurse's station.
--- NOTE | 2019-12-06 15:30 | NUR ---
Pt resting on the gurney. No change in condition.
[2019-12-06 16:06] LABS: URINE AMPHETAMINE SCREEN NEGATIVE (Neg); URINE BARBITUATE SCREEN NEGATIVE (Neg); URINE BENZODIAZEPINES SCREEN NEGATIVE (Neg); URINE CANNABINOID SCREEN NEGATIVE (Neg); URINE COCAINE SCREEN NEGATIVE (Neg); URINE METHADONE SCREEN NEGATIVE (Neg); URINE OPIATE SCREEN NEGATIVE (Neg); URINE PHENCYCLIDINE SCREEN NEGATIVE (Neg)
--- NOTE | 2019-12-06 16:21 | NUR ---
Pt is resting with even and unlabored respirations.
--- NOTE | 2019-12-06 17:32 | NUR ---
Pt is resting, no change in condition at this time.
[2019-12-06] MEDS ORDERED: LISI-604 PO (17:49)
[2019-12-06] MEDS ORDERED: ATOR10TA87 PO (17:49)
[2019-12-06] MEDS ORDERED: LURA20TA PO (17:49)
[2019-12-06] MEDS ORDERED: CARV6.253 PO (17:49)
[2019-12-06] MEDS ORDERED: PRIM50TA27 PO (17:49)
[2019-12-06] MEDS ORDERED: TRAZ-256 PO (17:49)
[2019-12-06] MEDS ORDERED: ASPI-1264 PO (17:49)
[2019-12-06] MEDS ORDERED: DULO60CA65 PO (17:49)
[2019-12-06] MEDS ORDERED: METF500T PO (17:49)
--- NOTE | 2019-12-06 17:54 | NUR ---
Medication reconciliation completed and given to Dr. Maurer for review. Diet order entered into the computer so we will get a dinner tray for the patient.
--- NOTE | 2019-12-06 18:36 | NUR ---
Pt is laying in a position of comfort on the gurney. Pt is awaiting dinner tray to arrive. Pt has no complaints at this time. In line of sight of the nurse's station.
--- NOTE | 2019-12-06 19:27 | NUR ---
PT UP TO USE URINAL AT BEDSIDE -
--- NOTE | 2019-12-06 20:30 | NUR ---
Pt declined dinner tray and reports he has some nausea. Pt is calm and cooperative at this time.
[2019-12-06] MEDS ORDERED: lurasidone 20mg tablet PO SCH (21:00)
[2019-12-06] MEDS ORDERED: primidone 50mg tablet PO SCH (21:00)
[2019-12-06] MEDS ORDERED: traZODone 50mg tablet PO SCH (21:00)
--- NOTE | 2019-12-06 21:20 | NUR ---
Patient refused his medications at this time and reports he does not want to eat, mild nausea still persists.
[2019-12-06] MEDS ORDERED: ondansetron 4mg rapidly disintigrating tab PO ONE (21:40)
--- NOTE | 2019-12-06 21:49 | NUR ---
Medicated as ordered for nausea, then will give a snack and bedtime medications.
--- NOTE | 2019-12-06 22:50 | NUR ---
Pt's evening medications given after he ate a sandwich, drank some apple juice, and is resting on the gurney.
--- NOTE | 2019-12-07 01:30 | NUR ---
PATIENT IN BED LYING ON LEFT SIDE COVERS ON EYES CLOSED RR EVEN UN LABORED NO OBSERVABLE S/S OF ACUTE STRESS AT THIS TIME WILL CONTINUE TO MONITOR
--- NOTE | 2019-12-07 03:30 | NUR ---
PATIENT STILL IN BED COVERS ON EYES CLOSED RR EVEN UN LABORED NO OBSERVABLE S/S OF ACUTE STRESS AT THIS TIME WILL CONTINUE TO MONITOR
--- NOTE | 2019-12-07 05:22 | NUR ---
PATIENT IN BED STILL ON LEFT SIDE COVERS ON EYES CLOSED RR EVEN UN LABORED NO OBSERVABLE S/S OF ACUTE STRESS AT THIS TIME WILL CONTINUE TO MONITOR
[2019-12-07] MEDS ORDERED: metFORMIN 500mg tablet PO SCH (07:30)
--- NOTE | 2019-12-07 07:55 | NUR ---
Pt denies S/H/I at this time. He reports experiencing increased anxiety yesterday which let to thoughts of suicide, but without a plan or timeframe. Pt reports having been d/c from [facility] ~ 2 weeks ago where new psychotropic meds were started. Education r/t to commonly associated increase of s/i with new med starts. Pt denies audio/visual hallucinations @ time.
[2019-12-07] MEDS ORDERED: carvedilol 6.25mg tablet PO SCH (08:00)
[2019-12-07] MEDS ORDERED: lisinopril 5mg tablet PO SCH (08:00)
[2019-12-07] MEDS ORDERED: duloxetine 30mg CAPSULE.DR PO SCH (08:00)
[2019-12-07] MEDS ORDERED: aspirin 325mg tablet PO SCH (08:00)
[2019-12-07] MEDS ORDERED: atorvastatin 10mg tablet PO SCH (08:00)
--- NOTE | 2019-12-07 08:05 | NUR ---
Pt engaged in psychosocial assessment w/ [facility].
[2019-12-07 10:28] VITALS: BP 130/78
== END 2019-12-07 10:31 ==
LOC: ER 12:06
DX: R45.851 Suicidal ideations (principal); I10 Essential (primary) hypertension; E11.9 Type 2 diabetes mellitus without complications; G89.29 Other chronic pain; Z86.711 Personal history of pulmonary embolism; Z86.73 Personal history of transient ischemic attack (TIA), and cerebral infarction without residual deficits; Z88.5 Allergy status to narcotic agent; Z88.8 Allergy status to other drugs, medicaments and biological substances; Z79.82 Long term (current) use of aspirin; Z79.899 Other long term (current) drug therapy
CPT/HCPCS: 36415; 80053; 80305; 80320; 82948; 85025; 99285

== ENCOUNTER 2020-11-16 08:02 | Emergency (ER) | payer MEDICARE ==
[~2020-11-16] VITALS: Ht 177.8 cm; Wt 107.0 kg
[~2020-11-16 08:02] MED LIST changes: -ASPI-1 PO; +ASPI-1264 PO; -ATOR10TA PO; +ATOR10TA87 PO; -LISI-642 PO; +LISI-790 PO; -METF-950 PO; +METF500T PO; +PRIM50TA27 PO; -PRIM50TA3 PO
[2020-11-16 10:00] VITALS: BP 164/93
[2020-11-16 10:39] LABS: BASOPHILS % (AUTO) 0.6 % (0-1); EOSINOPHILS # (AUTO) 0.2 X10'3 (0-0.9); EOSINOPHILS % (AUTO) 3.3 % (0-6); HEMATOCRIT 38.9 % (42.0-52.0); HEMOGLOBIN 12.8 g/dl (14.0-17.9); MEAN CORPUSCULAR HEMOGLOBIN 26.9 PG (27.0-31.0); MEAN CORPUSCULAR HGB CONC 32.8 g/dL (33.0-36.5); MONOCYTES # (AUTO) 0.8 X10'3 (0-0.9); NEUTROPHILS # (AUTO) 2.9 X10'3 (1.8-7.7); NEUTROPHILS % (AUTO) 59.1 % (42-75); PLATELET COUNT 169 X10'3 (140-440); RED BLOOD COUNT 4.75 X10'6 (4.70-6.10); RED CELL DISTRIBUTION WIDTH 14.4 % (11.5-14.5); WHITE BLOOD COUNT 4.9 X10'3 (4.5-11.0)
[2020-11-16 10:55] LABS: ALANINE AMINOTRANSFERASE 16 U/L (12-78); ALBUMIN 3.6 G/DL (3.4-5.0); ALBUMIN/GLOBULIN RATIO 1.2 (1.1-1.5); ALKALINE PHOSPHATASE 78 IU/L (46-116); ANION GAP 5 (8-16); ASPARTATE AMINO TRANSFERASE 26 U/L (10-37); BILIRUBIN,TOTAL 0.5 MG/DL (0.1-1.0); BLOOD UREA NITROGEN 10 MG/DL (7-18); BUN/CREATININE RATIO 14.9 (5.4-32.0); C-REACTIVE PROTEIN 0.69 MG/DL (0.0-0.5); CALCIUM 8.6 MG/DL (8.5-10.1); CHLORIDE 97 MMOL/L (99-107); CREATININE 0.67 MG/DL (0.60-1.10); GLUCOSE 132 MG/DL (70-104); POTASSIUM 4.4 MMOL/L (3.5-5.1); SODIUM 129 MMOL/L (135-145); TOTAL CARBON DIOXIDE 27.3 MMOL/L (24-32); TOTAL PROTEIN 6.5 G/DL (6.4-8.2); eGFR > 90 ML/MIN
[2020-11-16] MEDS ORDERED: CLIN-97 PO (12:07)
[2020-11-16] MEDS ORDERED: LACT1CAP60 PO (12:07)
== END 2020-11-16 12:46 | disposition home or self-care (01) ==
LOC: ER 08:02
DX: L03.116 Cellulitis of left lower limb (principal); E11.9 Type 2 diabetes mellitus without complications; I10 Essential (primary) hypertension; G89.29 Other chronic pain; Z86.711 Personal history of pulmonary embolism; Z86.73 Personal history of transient ischemic attack (TIA), and cerebral infarction without residual deficits; Z88.8 Allergy status to other drugs, medicaments and biological substances; Z79.82 Long term (current) use of aspirin; Z79.2 Long term (current) use of antibiotics; Z79.899 Other long term (current) drug therapy; Z88.6 Allergy status to analgesic agent
CPT/HCPCS: 36415; 80053; 83605; 84145; 85025; 85651; 86140; 87040; 99283

== ENCOUNTER 2020-11-18 19:40 | Emergency (ER) | payer MEDICARE ==
[~2020-11-18] VITALS: Ht 177.8 cm; Wt 210.0 kg
[~2020-11-18 19:40] MED LIST changes: +CLIN-97 PO; +LACT1CAP60 PO
--- NOTE | 2020-11-18 20:23 | NUR ---
PT IS YELLING AT SOMEONE ON THE PHONE . EXHIBITING HOSTILE BEHAVIOR . ASKE THE PATIENT IF HE WANTED TO BE SEEN . PT YELLING AT THIS RECORDER AND [facility] STAFF " FUCK YOU FUCK OFF , I WAN TO RECIEVE CAR FOR MY LEG NOW " ASKED PT IF HE COULD SAFELY AND CALMLY COME TO TRIAGE . PT YELLING WAVING CANE AROUND ASKING TO SPEAK TO NURSING ENGINE REPAIRER PRODUCTION . JAMAL BLUM TO LOBBY TO SEE PT . PT AGREED TO BE TRIAGED AND MAINTAIN A APPROPIATE BEHVIOR .
[2020-11-18 20:42] VITALS: BP 186/94
--- NOTE | 2020-11-18 20:45 | NUR ---
PT VERY RUDE HOSTILE USING PROFANITY DEMANDING CARE DEMNADING DIRECTOR OF NURSES CUSSING . REMINDED PATIENT THAT HE NEEDS TO MAINTAIN AN APPROPIRATE BEHVIOR OR HE WILL BE ASKED TO LEAVE . PT AGREEDED TO BEHAVE . PT OFFERED AND BROUGHT A WARM BLANKET
--- NOTE | 2020-11-18 21:37 | NUR ---
PT BEING DISRUPTED IN LOBBY YELLING MAKING INAPPROPIRATE PHONE CALLS ASKED PT TO LOWER HIS VOICE AND BEHAVE OR HE WILL BE ESCORTED OFF UNIT . SECURITY CALLED AND PAT[facility] . JOESPH CALLED CHARGE NURSE AWARE
== END 2020-11-18 22:06 | disposition left against medical advice (07) ==
LOC: ER 19:41
DX: M79.602 Pain in left arm (principal); Z53.21 Procedure and treatment not carried out due to patient leaving prior to being seen by health care provider

== ENCOUNTER 2021-03-14 12:38 | Inpatient (IN) | payer MEDICARE ==
[~2021-03-14] VITALS: Ht 177.8 cm; Wt 90.0 kg
--- NOTE | 2021-03-14 13:00 | NUR ---
Pt ambulated to bed w/o incident. Follows commands and put in green gown. Belongings logged and medications sent to pharmacy.
[2021-03-14 13:38] LABS: ALANINE AMINOTRANSFERASE 19 U/L (12-78); ALBUMIN 3.8 G/DL (3.4-5.0); ALBUMIN/GLOBULIN RATIO 1.2 (1.1-1.5); ALKALINE PHOSPHATASE 74 IU/L (46-116); ANION GAP 4 (8-16); ASPARTATE AMINO TRANSFERASE 28 U/L (10-37); BILIRUBIN,TOTAL 0.4 MG/DL (0.1-1.0); BLOOD UREA NITROGEN 17 MG/DL (7-18); CALCIUM 8.6 MG/DL (8.5-10.1); CHLORIDE 97 MMOL/L (99-107); CREATININE 0.63 MG/DL (0.60-1.10); GLUCOSE 115 MG/DL (70-104); SODIUM 129 MMOL/L (135-145); TOTAL CARBON DIOXIDE 28.4 MMOL/L (24-32); TOTAL PROTEIN 7.1 G/DL (6.4-8.2); eGFR > 90 ML/MIN
[2021-03-14 13:48] LABS: ETHANOL < 0.010 GM/DL (0.0-0.010)
[2021-03-14 13:52] LABS: CLARITY,URINE CLEAR (Clear); COLOR,URINE YELLOW (Yellow); UA COLLECTION TYPE CLN CATCH MIDSTREAM
[2021-03-14 13:53] LABS: GLUCOSE, URINE NEGATIVE (Neg); KETONES,URINE NEGATIVE (Neg); LEUKOCYTE ESTERASE ,URINE NEGATIVE (Neg); NITRITES, URINE NEGATIVE (Neg); OCCULT BLOOD,URINE NEGATIVE (Neg); PROTEIN,URINE NEGATIVE (Neg); UROBILINOGEN,URINE 0.2 E.U/dL (0.2-1.0)
[2021-03-14 13:54] LABS: URINE AMPHETAMINE SCREEN NEGATIVE (Neg); URINE BARBITUATE SCREEN NEGATIVE (Neg); URINE BENZODIAZEPINES SCREEN NEGATIVE (Neg); URINE CANNABINOID SCREEN POSITIVE (Neg); URINE COCAINE SCREEN NEGATIVE (Neg); URINE METHADONE SCREEN NEGATIVE (Neg); URINE OPIATE SCREEN NEGATIVE (Neg); URINE PHENCYCLIDINE SCREEN NEGATIVE (Neg)
[2021-03-14] MEDS ORDERED: CARB1TAB23 PO (13:54)
[2021-03-14] MEDS ORDERED: RASA1TAB PO (13:55)
[2021-03-14 14:14] LABS: BASOPHILS % (AUTO) 0.6 % (0-1); EOSINOPHILS # (AUTO) 0.2 X10'3 (0-0.9); EOSINOPHILS % (AUTO) 3.2 % (0-6); HEMATOCRIT 37.8 % (42.0-52.0); HEMOGLOBIN 12.3 g/dl (14.0-17.9); LYMPHOCYTES # (AUTO) 1.4 X10'3 (1.1-4.8); LYMPHOCYTES % (AUTO) 28.8 % (21-51); MEAN CORPUSCULAR HEMOGLOBIN 25.5 PG (27.0-31.0); MEAN CORPUSCULAR HGB CONC 32.6 g/dL (33.0-36.5); MEAN CORPUSCULAR VOLUME 78.4 FL (78-98); MEAN PLATELET VOLUME 9.2 FL (7.4-10.4); MONOCYTES # (AUTO) 0.6 X10'3 (0-0.9); MONOCYTES % (AUTO) 12.9 % (2-12); NEUTROPHILS # (AUTO) 2.7 X10'3 (1.8-7.7); NEUTROPHILS % (AUTO) 54.5 % (42-75); PLATELET COUNT 210 X10'3 (140-440); RED BLOOD COUNT 4.82 X10'6 (4.70-6.10)
[2021-03-14] MEDS: clindamycin 150mg capsule PO SCH ×2 (14:41→20:45)
--- NOTE | 2021-03-14 15:00 | NUR ---
Pt in bed interacting with staff.
[2021-03-14] MEDS ORDERED: diphenhydrAMINE 25mg capsule PO ONE (16:00)
--- NOTE | 2021-03-14 18:39 | NUR ---
Assumed care 1830, patient resting, making need be known
[2021-03-14] MEDS: carvedilol 6.25mg tablet PO SCH (20:45)
[2021-03-14] MEDS: metFORMIN 500mg tablet PO SCH (20:45)
[2021-03-14] MEDS: carbidoba-levodopa 25-100mg tablet PO SCH (20:46)
[2021-03-14] MEDS ORDERED: traZODone 50mg tablet PO SCH (21:00)
[2021-03-14] MEDS ORDERED: primidone 50mg tablet PO SCH (21:00)
[2021-03-14] MEDS ORDERED: lurasidone 20mg tablet PO SCH (21:00)
--- NOTE | 2021-03-14 21:06 | NUR ---
ERIKA restrepo passed after medication education with patient, patient is able to name his medication and the reason for taking them. Patient did announce that he had a large BM at 2030. Patient prefers to be call Curtis his given middle name "I have no idea why anyone would name nestor Harrison, my brother always made fun of my name. Patient is pleasant and friendly with this technical proposal writer.
--- NOTE | 2021-03-14 23:08 | NUR ---
Patient sleeping on left side undr covers. 2200 patient asked for a snack, yogurt given. Patient ambulate full lenght of the unit about 0, use the restroom and went back to bed.
[2021-03-14] MEDS ORDERED: acetaminophen 325mg tablet PO ONE (23:40)
--- NOTE | 2021-03-14 23:48 | NUR ---
prn Tylenol for left lower leg ache
[2021-03-15] MEDS: clindamycin 150mg capsule PO SCH ×4 (02:00→20:24)
--- NOTE | 2021-03-15 02:03 | NUR ---
Patient has just falling asleep about 0130, 0200 medication held for now.
--- NOTE | 2021-03-15 02:56 | NUR ---
Patient continues to sleep. This life insurance underwriter cleaned around patients bed side table and emptied urinal. Patient did not wake, 0200 medication not given
--- NOTE | 2021-03-15 03:00 | NUR ---
Earlier this evening patient stated that he was doing yard work and scratched his LLE, "I have had antibotics and I think I need more", rx by provider for additional treatment.
--- NOTE | 2021-03-15 03:10 | NUR ---
0200 medication passed, patient awake to us urinal.
--- NOTE | 2021-03-15 03:24 | NUR ---
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 Patient is asking for water, the PCT just filled his pticher with water, Hunter is not remembering things that were just done for him. Patient appears disorganized and somewhat sedated.
--- NOTE | 2021-03-15 05:09 | NUR ---
Patient awake asking for coffee, patient is ambulating with his walker. Patient is threatening to wake up all the patient and have a riot, then he states he is joking. This report writer asked patient where he lives and if he lives alone. Patient states that he lives off [address] [facility] and [facility] [address] [facility] where all the drug houses are, "if every house would pay $20.00 to [employer] then they might get the drugs out of this town". Patient went of to say that "every where is bad , it is going to be like the drug cartel, we will all be living like [place] the drugs will take over".
--- NOTE | 2021-03-15 06:42 | NUR ---
Patient ambulatory to BR, steady gait with his walker. No distress observed. Continue to monitor.
--- NOTE | 2021-03-15 07:34 | NUR ---
Faxed Packet to [facility].
--- NOTE | 2021-03-15 07:48 | NUR ---
Patient ambulatory to BR, with walker, steady gait. No distress observed at this time. Continue to monitor.
[2021-03-15] MEDS: RASAGILINE 1MG TABLET PO SCH (08:00)
[2021-03-15] MEDS: duloxetine 30mg CAPSULE.DR PO SCH ×2 (08:00→08:18)
[2021-03-15] MEDS: carvedilol 6.25mg tablet PO SCH (08:18)
[2021-03-15] MEDS: aspirin 325mg tablet PO SCH (08:18)
[2021-03-15] MEDS: carbidoba-levodopa 25-100mg tablet PO SCH ×2 (08:18→13:00)
[2021-03-15] MEDS: metFORMIN 500mg tablet PO SCH ×2 (08:19→20:24)
[2021-03-15] MEDS: lisinopril 5mg tablet PO SCH (08:19)
[2021-03-15] MEDS: atorvastatin 10mg tablet PO SCH (08:19)
--- NOTE | 2021-03-15 08:45 | NUR ---
Patient was eating breakfast and RN brought him his meds. Patient states "At least I'm not a corpse like all these other people." RN asked "Do you mean the other patients?" Patient stated "Yes." RN replied "No, they are not corpses and you don't know what is going on with other patients." Patient got defensive. RN read every medication he was getting to him. RN then opened the packages in front of patient and placed the meds in the med cup. Patient proceeded to ask me which pill is what. RN told patient and when she got to the [facility] patient took them out and threw on his tray table. RN observed the Traveler RN yesterday being treated poorly. Continue to monitor.
--- NOTE | 2021-03-15 11:05 | NUR ---
[facility], evaluating patient. Patient is being difficulty. Continue to monitor.
[2021-03-15] MEDS: acetaminophen 325mg tablet PO PRN ×2 (12:17→20:22)
--- NOTE | 2021-03-15 12:20 | NUR ---
Patient took Tylenol without issue.
[2021-03-15] MEDS ORDERED: CARB1TAB42 PO (13:09)
[2021-03-15] MEDS ORDERED: CARV-50 PO (13:09)
[2021-03-15] MEDS ORDERED: GABA-530 PO (13:09)
[2021-03-15] MEDS ORDERED: PRIM50TA27 PO (13:09)
[2021-03-15] MEDS ORDERED: METF-900 PO (13:13)
[2021-03-15] MEDS ORDERED: PALI3TAB5 PO (13:13)
--- NOTE | 2021-03-15 14:15 | NUR ---
RN went over patient's medication with the patient. Patient stated he was going to refuse the Paliperidone 3 mg. The very one he needs for his paranoia. I will let the night nurse know so she/he can encourage patient to take the med. Patient was very happy and pulled the RN to hug her. Continue to monitor.
--- NOTE | 2021-03-15 16:11 | NUR ---
Patient going up and down navarro with his walker. No distress observed. Continue to monitor.
--- NOTE | 2021-03-15 19:50 | NUR ---
One to one with the patient who seems manipulative and trying to direct and school staff and peers as to what they should be doing. He was redirected from those behaviors. He reports his mood is good. He is denying that he is having any auditory or visual hallucinations and none were apparent during the evening assessment. Suicidal thoughts are denied but he states he needs to be in a psychiatric hospital for "confidential" reasons.
[2021-03-15] MEDS: carbidopa/levodopa 50/200mg CR tablet PO SCH (20:23)
[2021-03-15] MEDS: carVEDilol 12.5mg tablet PO SCH (20:23)
[2021-03-15] MEDS: lactobacillus rhamnosus 10,000 MMU CELLS/CAPSULE PO SCH (20:23)
[2021-03-15] MEDS: gabapentin 100mg capsule PO SCH (20:23)
[2021-03-15] MEDS: PALIPERIDONE 3 MG TAB.ER.24 PO SCH (20:24)
[2021-03-15] MEDS: primidone 50mg tablet PO SCH (20:25)
--- NOTE | 2021-03-15 21:28 | NUR ---
The patient is resting on his bed. Up briefly to use the bathroom.
--- NOTE | 2021-03-15 23:28 | NUR ---
The patient is resting on his bed
--- NOTE | 2021-03-16 01:02 | NUR ---
The patient up to use the bathroom
[2021-03-16] MEDS: clindamycin 150mg capsule PO SCH ×4 (01:08→20:48)
--- NOTE | 2021-03-16 03:48 | NUR ---
The patient has been frequently awake. He is polite and has had no behaviors that have required redirection
--- NOTE | 2021-03-16 04:58 | NUR ---
The patient appears to be sleeping
--- NOTE | 2021-03-16 07:30 | NUR ---
Patient ambulate to bathroom with a walker.
--- NOTE | 2021-03-16 07:30 | NUR ---
Elicia ng in [facility] - 03/16/21 at 1104 by STANISLAV patient ambulate to rest room
[2021-03-16] MEDS: RASAGILINE 1MG TABLET PO SCH (08:00)
[2021-03-16] MEDS: atorvastatin 10mg tablet PO SCH (09:05)
[2021-03-16] MEDS: gabapentin 100mg capsule PO SCH ×3 (09:05→20:48)
[2021-03-16] MEDS: carVEDilol 12.5mg tablet PO SCH ×2 (09:06→20:48)
[2021-03-16] MEDS: aspirin 325mg tablet PO SCH (09:06)
[2021-03-16] MEDS: metFORMIN 500mg tablet PO SCH ×2 (09:07→20:48)
[2021-03-16] MEDS: lactobacillus rhamnosus 10,000 MMU CELLS/CAPSULE PO SCH ×2 (09:07→20:48)
[2021-03-16] MEDS: lisinopril 5mg tablet PO SCH (09:14)
--- NOTE | 2021-03-16 09:40 | NUR ---
Patient stated that he has gone to the bathroom 3 times and has loose stool.Jason GRIFFITH notified, patient given prealite
--- NOTE | 2021-03-16 09:45 | NUR ---
Patient requested tyleno for pain in his left leg
[2021-03-16] MEDS: acetaminophen 325mg tablet PO PRN ×2 (09:54→20:48)
[2021-03-16] MEDS ORDERED: chloestyramine/aspartame 4gm packet PO STA (10:09)
--- NOTE | 2021-03-16 11:00 | NUR ---
patient laying on bed with no discomfort.
--- NOTE | 2021-03-16 12:42 | NUR ---
Patinet ambulate down hallway with walker, stead gate, no distress noted
--- NOTE | 2021-03-16 13:40 | NUR ---
Patient stated that his room is too cold and requested room changed. Patient was moved to room 20
--- NOTE | 2021-03-16 13:44 | NUR ---
Patient stated that he feels more better, and the diarrhea has stop
--- NOTE | 2021-03-16 14:27 | NUR ---
Patient resting on bed, no distress noted
--- NOTE | 2021-03-16 16:00 | NUR ---
Patient walking down hallway with walker, gait is stable
--- NOTE | 2021-03-16 18:51 | NUR ---
One to one with the patient to assess severity of psychiatric symtpoms. The patient presents as alert, oriented and independent in his self care. He stated his mood is "pretty good" He denies thoughts to harm himself or others. Psychotic symptoms are denied. He has already stated that he no longer wants to take paliperidone and that he is refusing to take the dose at HS. He stated that it made him too drowsy. He was reminded that he was awake most of the night last night but he continues to insist that he feels overmedicated with the med. He stated, "I'm here because I need help at home. I need someone to shop, clean, and cook for me. I need someone to keep me company" He stated that his adult children are too busy to assist him.
[2021-03-16] MEDS: primidone 50mg tablet PO SCH (20:47)
[2021-03-16] MEDS: carbidopa/levodopa 50/200mg CR tablet PO SCH (20:47)
[2021-03-16] MEDS: PALIPERIDONE 3 MG TAB.ER.24 PO SCH (20:48)
--- NOTE | 2021-03-16 21:37 | NUR ---
The patient up to use the bathroom.
--- NOTE | 2021-03-16 23:17 | NUR ---
The patient currently appears to be sleeping
--- NOTE | 2021-03-17 01:34 | NUR ---
The patient is resting on his bed but he awakens frequently
[2021-03-17] MEDS: clindamycin 150mg capsule PO SCH ×4 (01:59→19:56)
--- NOTE | 2021-03-17 03:39 | NUR ---
The patient appears to be sleeping
--- NOTE | 2021-03-17 04:54 | NUR ---
The patient is resting on his bed but awake
--- NOTE | 2021-03-17 07:15 | NUR ---
PT SITTING ON HIS BED, TALKING WITH ANOTHER PATIENT IN THE BED NEXT TO HIM
[2021-03-17] MEDS: aspirin 325mg tablet PO SCH (07:40)
[2021-03-17] MEDS: lactobacillus rhamnosus 10,000 MMU CELLS/CAPSULE PO SCH ×2 (07:40→19:58)
[2021-03-17] MEDS: atorvastatin 10mg tablet PO SCH (07:40)
[2021-03-17] MEDS: gabapentin 100mg capsule PO SCH ×3 (07:40→19:58)
[2021-03-17] MEDS: carVEDilol 12.5mg tablet PO SCH ×2 (07:40→19:58)
[2021-03-17] MEDS: lisinopril 5mg tablet PO SCH (07:41)
[2021-03-17] MEDS: metFORMIN 500mg tablet PO SCH ×2 (07:47→19:59)
[2021-03-17] MEDS: RASAGILINE 1MG TABLET PO SCH (08:00)
[2021-03-17] MEDS: acetaminophen 325mg tablet PO PRN ×2 (09:05→22:42)
--- NOTE | 2021-03-17 10:01 | NUR ---
rest padd [place] declined pt because he uses a walker
--- NOTE | 2021-03-17 10:16 | NUR ---
pt up to use the restroom, walking with walker
[2021-03-17] MEDS ORDERED: LORazepam 1 MG tablet PO ONE (16:20)
--- NOTE | 2021-03-17 19:27 | NUR ---
Pt up and down pacing. Bed side assessment done Pt patient displayes some manic Bx intrusive at nurses station but is redirectable.
[2021-03-17] MEDS: carbidopa/levodopa 50/200mg CR tablet PO SCH (19:56)
[2021-03-17] MEDS: PALIPERIDONE 3 MG TAB.ER.24 PO SCH (19:57)
[2021-03-17] MEDS: primidone 50mg tablet PO SCH (20:08)
--- NOTE | 2021-03-17 20:19 | NUR ---
Patient refused his mysline at [facility].
[2021-03-17] MEDS ORDERED: diphenhydrAMINE 25mg capsule PO ONE (22:10)
--- NOTE | 2021-03-17 22:49 | NUR ---
Spoke with Filomena RN to have a provider come down and eval pt meds do to contined Manic Bx. Pt has been here sence 03/14 with no improvment.
--- NOTE | 2021-03-18 00:16 | NUR ---
Patient sleeping Prn Benadryl 25 mg effective.
[2021-03-18] MEDS: clindamycin 150mg capsule PO SCH ×4 (01:35→20:29)
[2021-03-18] MEDS: acetaminophen 325mg tablet PO PRN ×2 (02:43→23:13)
--- NOTE | 2021-03-18 04:52 | NUR ---
Patient slept for a few hrs up and down most of the shift. Prn tylenol x2 Benadryl x1. Grandious manic Bx . very flurtatious with female staff.
--- NOTE | 2021-03-18 05:18 | NUR ---
The patient is demanding to use the phone to call the [employer] consultant's office.
--- NOTE | 2021-03-18 05:29 | NUR ---
Patient very labile making threats to staff. Threts to have [employer] and [employer] look at our policies delusions about [employer] trying to kill him.
[2021-03-18] MEDS ORDERED: OLANZapine **IM** 10 mg inj. IM ONE (05:55)
--- NOTE | 2021-03-18 06:04 | NUR ---
PATIENT received Zyprexa im 10 mg for thretening Bx.
--- NOTE | 2021-03-18 07:00 | NUR ---
pt is walking around in his room, looking through everything and walking back and forth to bathroom. he is pleasant at this time but does make occasional angry comments
--- NOTE | 2021-03-18 07:30 | NUR ---
pt sitting in bed, complaining obsessively over a/c and temp. he was offered a warm blanket but declined. he layed down but continued to obsessively complain about air conditioner
[2021-03-18] MEDS: RASAGILINE 1MG TABLET PO SCH (08:00)
--- NOTE | 2021-03-18 08:00 | NUR ---
pt sleeping quietly.
[2021-03-18] MEDS: gabapentin 100mg capsule PO SCH ×3 (08:44→20:26)
[2021-03-18] MEDS: aspirin 325mg tablet PO SCH (08:44)
[2021-03-18] MEDS: carVEDilol 12.5mg tablet PO SCH ×2 (08:45→20:26)
[2021-03-18] MEDS: lisinopril 5mg tablet PO SCH (08:49)
[2021-03-18] MEDS: lactobacillus rhamnosus 10,000 MMU CELLS/CAPSULE PO SCH ×2 (08:49→20:26)
[2021-03-18] MEDS: metFORMIN 500mg tablet PO SCH ×2 (08:50→20:26)
[2021-03-18] MEDS: atorvastatin 10mg tablet PO SCH (08:51)
--- NOTE | 2021-03-18 12:02 | NUR ---
pt woke up from nap and immediately began complaining that he cant move his arm where he recieved the shot of zyprexa while using the arm to reach for his water cup. got up and started walking back and forth to the bathroom attempting to instigate staff
--- NOTE | 2021-03-18 12:35 | NUR ---
pt woke up and immediately started complaining about his arm. he states that the shot they gave him made his arm numb and he cant move it now. arm was assessed and there was no redness, swelling or signs or trauma, strength was equal in both arms. pt demanded that the doctor come imediately and he be sent to a nuerogist.
--- NOTE | 2021-03-18 14:35 | NUR ---
pt alternating between napping and threatening/antagonizing staff. NACHO Boyd came to speak to pt however he was sleeping at the time and doc did not want to wake him so he did not assess him at this point
--- NOTE | 2021-03-18 16:30 | NUR ---
pt continues to pace back and forth between bathroom and nurses station. NACHO Boyd came to assess pt who was condesending, degarding and rude the entire time. pt gradually escalated throughout the conversation and was screaming insults at everyone after several minutes. doc left room and stated he would put in orders to help the patient sleep including ativan and zyprexa however those orders have not come through.
--- NOTE | 2021-03-18 17:00 | NUR ---
no orders from doc for sedatives however pt is now sleeping and they are not needed.
--- NOTE | 2021-03-18 18:30 | NUR ---
pt continues to sleep soundly and snore loudly.
--- NOTE | 2021-03-18 18:30 | NUR ---
report given to jet kwon. pt is now awake, quite and eating dinner. he has not said anything to staff since waking up.
[2021-03-18] MEDS: LORazepam 1 MG tablet PO SCH (20:00)
[2021-03-18] MEDS: carbidopa/levodopa 50/200mg CR tablet PO SCH (20:26)
[2021-03-18] MEDS: olanzapine 10mg tablet PO SCH (20:26)
[2021-03-18] MEDS: primidone 50mg tablet PO SCH (20:26)
--- NOTE | 2021-03-18 20:55 | NUR ---
The patient has been awake and calmer. He continues to make paranoid statements about the staff. He is redirectable. He is not making any threats. He took all of his HS medications except for the ativan stating he felt it would make him too sedated.
--- NOTE | 2021-03-18 22:10 | NUR ---
The patient appears to be sleeping
--- NOTE | 2021-03-18 23:15 | NUR ---
Patient up to use the bathroom. Requested/received tylenol for pain. The patient has very poor insight and does not believe he needs medications for bipolar
--- NOTE | 2021-03-19 01:33 | NUR ---
The patient appears to be sleeping
[2021-03-19] MEDS: LORazepam 1 MG tablet PO SCH ×4 (01:42→20:48)
[2021-03-19] MEDS: clindamycin 150mg capsule PO SCH ×4 (01:42→20:48)
--- NOTE | 2021-03-19 02:15 | NUR ---
PT SAFELY AMBULATED WITH WALKER AND ASSISTANCE TO BATHROOM, NOW BACK IN BED AND SEEMS TO BE ALSEEP WITH EVEN AND UNLABORED RESPIRATIONS
--- NOTE | 2021-03-19 03:42 | NUR ---
The patient appears to be sleeping
--- NOTE | 2021-03-19 05:02 | NUR ---
The patient appears to be sleeping. He has slept well during the night and was up on periodically to use the bathroom.
--- NOTE | 2021-03-19 07:00 | NUR ---
Pt. asleep in bed in supine position. Normal R&R of respirations observed. Pt. in no apparent distress.
[2021-03-19] MEDS: RASAGILINE 1MG TABLET PO SCH (08:00)
[2021-03-19] MEDS: lactobacillus rhamnosus 10,000 MMU CELLS/CAPSULE PO SCH ×2 (08:48→20:48)
[2021-03-19] MEDS: lisinopril 5mg tablet PO SCH (08:48)
[2021-03-19] MEDS: olanzapine 10mg tablet PO SCH ×2 (08:49→20:00)
[2021-03-19] MEDS: aspirin 325mg tablet PO SCH (08:49)
[2021-03-19] MEDS: carVEDilol 12.5mg tablet PO SCH ×2 (08:49→20:48)
[2021-03-19] MEDS: metFORMIN 500mg tablet PO SCH ×2 (08:49→20:48)
[2021-03-19] MEDS: atorvastatin 10mg tablet PO SCH (08:49)
[2021-03-19] MEDS: gabapentin 100mg capsule PO SCH ×3 (08:49→20:48)
--- NOTE | 2021-03-19 09:00 | NUR ---
Pt. awake in bed eating breakfast. Pt. took all medications except for ativan.
--- NOTE | 2021-03-19 11:00 | NUR ---
Pt. awake and resting in bed in supine position. Pt. watching TV, is calm and coopeartive.
--- NOTE | 2021-03-19 12:34 | NUR ---
RN spoke with supervisory geographer juli and [facility] for nurse to nurse. Juli informed this RN that packet will be further reviewed for possible placement.
--- NOTE | 2021-03-19 13:00 | NUR ---
Pt. states he is going to refuse all psychaitric medications until Xanax 0.5mg BID and Abilify (Pt. states he has never taken Abilify before) are prescribed. RN informed psychiatric provider Tiago GRIFFITH of pt.'s med refusal and med request.
[2021-03-19] MEDS: acetaminophen 325mg tablet PO PRN (14:44)
--- NOTE | 2021-03-19 15:00 | NUR ---
Pt. is resting in bed in high folwers position, talking on the phone and watching TV.
[2021-03-19] MEDS ORDERED: ibuprofen tablet 400 MG TABLET PO ONE (16:05)
[2021-03-19] MEDS ORDERED: ibuprofen 200mg tablet PO ONE (16:10)
--- NOTE | 2021-03-19 16:30 | NUR ---
Pt. c/o of generalized body aches and received Tylenol 650mg po with minimal effect. RN received order for one time dose of Ibuprofen 600mg po x1.
--- NOTE | 2021-03-19 19:41 | NUR ---
The patient has been resting on his bed. He periodically ambulates to the bathroom with his walker. He is independent in the care of his ADLs. He stated that he had a good day. "I've been calm all day" He denies A/V hallucinations. When asked he denied fearing the [place] [employer] but then stated "They better worry about me. I have some heavy hitters on my side"
[2021-03-19] MEDS: primidone 50mg tablet PO SCH (20:48)
[2021-03-19] MEDS: carbidopa/levodopa 50/200mg CR tablet PO SCH (20:48)
--- NOTE | 2021-03-19 21:00 | NUR ---
The patient is resting on his bed and is watching TV.
--- NOTE | 2021-03-19 22:49 | NUR ---
The patient is resting on his bed and periodically socializing with staff
--- NOTE | 2021-03-20 00:29 | NUR ---
The patient appears to be sleeping
[2021-03-20] MEDS: LORazepam 1 MG tablet PO SCH ×4 (01:50→19:45)
[2021-03-20] MEDS: clindamycin 150mg capsule PO SCH ×4 (01:50→19:54)
--- NOTE | 2021-03-20 01:55 | NUR ---
The patient up to the bathroom.
--- NOTE | 2021-03-20 04:04 | NUR ---
The patient appears to be sleeping
--- NOTE | 2021-03-20 05:33 | NUR ---
The patient is awake and very intrussive with staff. At times making inappropriate comments that she loves the staff.
--- NOTE | 2021-03-20 07:00 | NUR ---
Pt. awake and walked to the bathroom and now lying in bed resting in supine position. Pt. in no apparent distress.
[2021-03-20] MEDS: RASAGILINE 1MG TABLET PO SCH (08:00)
[2021-03-20] MEDS: olanzapine 10mg tablet PO SCH ×2 (08:00→19:45)
[2021-03-20] MEDS: atorvastatin 10mg tablet PO SCH (08:34)
[2021-03-20] MEDS: aspirin 325mg tablet PO SCH (08:35)
[2021-03-20] MEDS: lactobacillus rhamnosus 10,000 MMU CELLS/CAPSULE PO SCH ×2 (08:35→19:45)
[2021-03-20] MEDS: carVEDilol 12.5mg tablet PO SCH ×2 (08:35→19:45)
[2021-03-20] MEDS: metFORMIN 500mg tablet PO SCH ×2 (08:35→19:45)
[2021-03-20] MEDS: lisinopril 5mg tablet PO SCH (08:35)
[2021-03-20] MEDS: gabapentin 100mg capsule PO SCH ×3 (08:35→19:55)
--- NOTE | 2021-03-20 09:00 | NUR ---
Pt. ate breakfast and took all AM medications except for Zyprexa. Pt. calm and lying supine in bed. Pt. in no apparent distress.
[2021-03-20] MEDS: acetaminophen 325mg tablet PO PRN (10:16)
--- NOTE | 2021-03-20 11:00 | NUR ---
1:1 done at bedside, pt. continues to talk about how he needs protection from the [place] [employer]. Pt. is hyperverbal and becomes tangential during interview changing subject, wanting to buy the hospital [facility], and then talking about how he hates [employer] and wants to change cell service.
--- NOTE | 2021-03-20 12:50 | NUR ---
Female pt. reported that this pt. attempted to play footsy with her. RN informed pt. that this behavior is unnaceptable, pt. states, "I didn't do anything wrong... I'm not going to follow your rules!"
--- NOTE | 2021-03-20 14:00 | NUR ---
Pt. resting in supine position in bed. Normal rate and rhythm of respirations observed.
--- NOTE | 2021-03-20 16:00 | NUR ---
Pt. asleep in supine position in bed. Normal R&R of respirations observed. Pt. in no apparent distress.
--- NOTE | 2021-03-20 18:00 | NUR ---
Pt. sitting at bedside changing. Pt. in no apparent distress.
--- NOTE | 2021-03-20 18:47 | NUR ---
Call to [facility] to request a med consult from Dr. Palacios as soon as possible as the patient has not been placed and he has been in the ER over 150 hours. He did have a medication eval but the patient rejected taking the zyprexa.
--- NOTE | 2021-03-20 18:59 | NUR ---
The patient is increasing rude and intrussive. He has been refusing to take the zyprexa that was ordered. He is increasingly difficult to redirect.
--- NOTE | 2021-03-20 19:14 | NUR ---
The patient was moved away from the nursing station because he was constantly intrusive at the nursing station.
[2021-03-20] MEDS: primidone 50mg tablet PO SCH (19:55)
[2021-03-20] MEDS: carbidopa/levodopa 50/200mg CR tablet PO SCH (19:55)
--- NOTE | 2021-03-20 21:00 | NUR ---
The patient is resting on his bed and periodically calling out to staff
--- NOTE | 2021-03-20 23:32 | NUR ---
The patient up to use the bathroom
--- NOTE | 2021-03-21 00:05 | NUR ---
The patient is being disruptive on the unit. He is calling out from his bed giving staff directives and does not comply with redirection. Patient out in the main area of the unit with his pants down and was redirected back to his bed.
--- NOTE | 2021-03-21 01:01 | NUR ---
The patient appears to be sleeping
[2021-03-21] MEDS: clindamycin 150mg capsule PO SCH (01:22)
[2021-03-21] MEDS: LORazepam 1 MG tablet PO SCH ×2 (01:23→08:00)
--- NOTE | 2021-03-21 01:34 | NUR ---
The patient up and walking with his walker. At one point was unsteady but was rude to the staff member who offered their help. He refused his ativan but took his antibiotic.
--- NOTE | 2021-03-21 02:30 | NUR ---
The patient appears to be sleeping
--- NOTE | 2021-03-21 04:55 | NUR ---
The patient appears to be sleeping
--- NOTE | 2021-03-21 06:30 | NUR ---
Assumed care pt resting on his bed on his right side.
[2021-03-21] MEDS: RASAGILINE 1MG TABLET PO SCH (08:00)
--- NOTE | 2021-03-21 08:09 | NUR ---
Pt sitting at the side of his bed eating breakfast. He denies compliants and states he is looking forward to "going upstairs."
[2021-03-21] MEDS: atorvastatin 10mg tablet PO SCH (08:50)
[2021-03-21] MEDS: lisinopril 5mg tablet PO SCH (08:51)
[2021-03-21] MEDS: lactobacillus rhamnosus 10,000 MMU CELLS/CAPSULE PO SCH ×2 (08:51→20:41)
[2021-03-21] MEDS: metFORMIN 500mg tablet PO SCH ×2 (08:51→20:59)
[2021-03-21] MEDS: olanzapine 10mg tablet PO SCH ×2 (08:51→20:42)
[2021-03-21] MEDS: gabapentin 100mg capsule PO SCH ×3 (08:52→20:42)
[2021-03-21] MEDS: carVEDilol 12.5mg tablet PO SCH ×2 (08:52→20:41)
[2021-03-21] MEDS: aspirin 325mg tablet PO SCH (08:53)
--- NOTE | 2021-03-21 10:05 | NUR ---
Pt washed up and changed into clean hospital clothes. He is now watching TV.
--- NOTE | 2021-03-21 11:58 | NUR ---
Pt continues to watch TV and visit with staff. On occasion he will engage in conversation with one of the other pt's.
--- NOTE | 2021-03-21 13:00 | NUR ---
Pt up watching TV. He reports to be doing "well."
--- NOTE | 2021-03-21 15:22 | NUR ---
Pt is walking around using his FWW and visiting with staff and pt's.
--- NOTE | 2021-03-21 17:50 | NUR ---
Pt is on his bed reading. He states, "I am doing good." VS WNL's
[2021-03-21] MEDS ORDERED: LORazepam 1 MG tablet PO PRN (18:20)
--- NOTE | 2021-03-21 18:30 | NUR ---
Patient ambulated to sink and was washing out his socks, student nurse asked him if he would like a dry pair of non slip slippers. Pt states "no I need to dry these ones in the microwave"
--- NOTE | 2021-03-21 20:00 | NUR ---
Patient called over student nurse and stated "did you know tylenol is an antihistamine and an anti-inflammatory and a pain reliever just like aspirin?" Also stated that food coloring is used to pull moisture out of the body and claims to have been poisoned with green food coloring that he smeared on his face. "Look on the label and see if it says anything, it could kill kids by dehydrating them!"
[2021-03-21] MEDS: carbidopa/levodopa 50/200mg CR tablet PO SCH (20:40)
[2021-03-21] MEDS: primidone 50mg tablet PO SCH (20:41)
[2021-03-21] MEDS: ALPRAZolam 0.5mg tablet PO SCH (20:42)
[2021-03-21] MEDS ORDERED: magnesium hydroxide 30ml (MOM) UD suspension PO ONE (20:55)
[2021-03-21] MEDS: acetaminophen 325mg tablet PO PRN (20:58)
--- NOTE | 2021-03-21 23:16 | NUR ---
Patient continues to exhibit labile behavior. He is intrusive towards staff. Patient uses profanity, accuses staff of not supplying care. Patient coached to relax, he remains defiant.
--- NOTE | 2021-03-21 23:21 | NUR ---
Patient has approached the desk, he makes threatening statements to staff. Security called.
--- NOTE | 2021-03-21 23:26 | NUR ---
Patient exhibits paranoia, states staff may be trying to murder him by putting him into ventricular tachacardia. Patient refuses offer for Ativan. In the presence of security patient does return to bed.
--- NOTE | 2021-03-22 00:30 | NUR ---
Patient walked up to nursing station, he hacked up speutum and spit phlegm into waste paper sack, the patient then glared at this development writer in an attempt to provoke a response. The patient was redirected back to his bed. Patient verbaliizes profanities enroute to bed. Patient remains defiant and intrusive. He sits at the side of his bed with his light on.
--- NOTE | 2021-03-22 03:41 | NUR ---
Patient ambulates from bedd to nursing station. Patient is now polite. He is redirected to bed.
--- NOTE | 2021-03-22 07:00 | NUR ---
PT up ambulatory with walker.
[2021-03-22] MEDS: RASAGILINE 1MG TABLET PO SCH (08:00)
[2021-03-22] MEDS: lactobacillus rhamnosus 10,000 MMU CELLS/CAPSULE PO SCH ×2 (08:00→20:00)
[2021-03-22] MEDS: olanzapine 10mg tablet PO SCH (08:00)
[2021-03-22] MEDS: aspirin 325mg tablet PO SCH (08:13)
[2021-03-22] MEDS: ALPRAZolam 0.5mg tablet PO SCH ×3 (08:13→20:34)
[2021-03-22] MEDS: gabapentin 100mg capsule PO SCH ×3 (08:14→20:33)
[2021-03-22] MEDS: carVEDilol 12.5mg tablet PO SCH ×2 (08:15→20:31)
[2021-03-22] MEDS: atorvastatin 10mg tablet PO SCH (08:15)
[2021-03-22] MEDS: lisinopril 5mg tablet PO SCH (08:15)
[2021-03-22] MEDS: metFORMIN 500mg tablet PO SCH ×2 (08:16→20:32)
[2021-03-22] MEDS: acetaminophen 325mg tablet PO PRN (08:19)
--- NOTE | 2021-03-22 09:37 | NUR ---
Pt eating breakfast and am medications given. Pt refuses Zyprexa because "it is a psych med and I don't need it" as well as Culturelle because "I'm not having diarrhea".
--- NOTE | 2021-03-22 09:39 | NUR ---
Pt c/o jaw pain r/t "lock jaw" and requests Tylenol which was given
--- NOTE | 2021-03-22 12:49 | NUR ---
Pt takes afternoon meds. He ambulates with walker around unit.
--- NOTE | 2021-03-22 13:06 | NUR ---
Pt eating lunch
[2021-03-22] MEDS ORDERED: magnesium hydroxide 30ml (MOM) UD suspension PO PRN (13:55)
[2021-03-22] MEDS ORDERED: mag hydrox/Alum hydrox/simeth 30ml oral suspension PO PRN (13:55)
[2021-03-22] MEDS ORDERED: traZODone 50mg tablet PO PRN (13:55)
[2021-03-22] MEDS ORDERED: acetaminophen 325mg tablet PO PRN (13:55)
[2021-03-22] MEDS ORDERED: loperamide 2mg capsule PO PRN (13:55)
[2021-03-22] MEDS ORDERED: LORazepam 1 MG tablet PO PRN (13:55)
--- NOTE | 2021-03-22 14:07 | NUR ---
Pt depart to [facility]. Pt Belongings inventoried with PCT, [facility] RN and pt and given for transfer to [facility]. Pt transer via w/c. NAD
--- NOTE | 2021-03-22 14:15 | NUR ---
ADMISSION NOTE: PT IS HERE ON A 5150. HE BELIEVES HE IS HERE FOR POLICE PROTECTION FROM THE [facility]. ALL PERSONAL BELONGINGS INVENTORIED AND STORED IN A LOCKER. PT HAD A SNACK. ADMISSION DOCUMENTATION COMPLETED. PT IS A NONSMOKER.
[2021-03-22 19:44] VITALS: BP 149/72
[2021-03-22] MEDS ORDERED: pneumococcal 23-VAL P-sac vacc 25 mcg/0.5ml vial IMVAC ONE (20:00)
[2021-03-22] MEDS: ARIPIPRAZOLE 10 MG TABLET PO SCH (20:32)
[2021-03-22] MEDS: carbidopa/levodopa 50/200mg CR tablet PO SCH (20:33)
[2021-03-22] MEDS: primidone 50mg tablet PO SCH (20:33)
--- NOTE | 2021-03-23 00:10 | NUR ---
Nursing Progress Note: Legal hold: 5150 GD Client on voluntary/involuntary status for GD. Report received from nurseMaged with use of SBAR. Why are they here: Pt is placed on a 5150 for gd. Pt believes he is here on a police protection from the [employer]. Pt has a hx of bipolar. Pt is easily agitated and aggressive towards staff in the ED. Pt is on abx for cellulites to Lower extremity. Diagnosis/presenting symptoms: GD, psychosis Assessment What has happened this shift: pt was in bed at shift change. Pt stated that he prefers to be called Curtis. Pt is friendly and cooperative for 1:1, pt stated, I sure do like boys, Im not edward or anything but I like my boys. Pt made several delusional statements about being chased by people that I turn it and am not afraid of. Later in the night, pt awoke and was angry about his room being too cold. Pt was demanding and speaking to staff in a condescending tone. S/I, H/I: Denies A/VH: Denies Sleep: see sleep assessment ADL's: independent, with prompting Group attendance: n/a Were meds taken: yes Any med S/E: none observed Mental Status Exam Appearance: wnl, in green scrubs Eye contact: good Behavior: friendly, cooperative Speech: clear, tangential Mood: content Affect: congruent Thought process: disorganized, paranoid Thought Content: paranoia about being chased Cognition: a/o x3, not to why here Insight: poor Judgment: poor Interventions PRN's used: None Therapeutic interventions: Introduced self and established rapport, Provide reassurance patient is safe as need, maintained a safe and supportive environment, ensured contract for safety, provided clear and simple instructions, attempted to orient to reality, provided active listening and positive encouragement, encouraged independent performance of ADLs, and maintained Q 15min safety checks. Restraints/seclusion/emergency medication: None Justification of Continued Inpatient Treatment: Patient requires interruption of current crises, medication adjustment, and a safe and supportive environment
[2021-03-23] MEDS: acetaminophen 325mg tablet PO PRN ×2 (05:07→11:42)
[2021-03-23 07:20] VITALS: BP 139/63
--- NOTE | 2021-03-23 07:54 | NUR ---
DM consult: A1C currently pending. Previous A1C on 11/14 was 6.2 Will continue to monitor and provide diabetes education if appropriate. Addendum: 03/23/21 at [address] Amended: Links added.
[2021-03-23] MEDS: RASAGILINE 1MG TABLET PO SCH (08:00)
[2021-03-23] MEDS: aspirin 325mg tablet PO SCH (08:15)
[2021-03-23] MEDS: lactobacillus rhamnosus 10,000 MMU CELLS/CAPSULE PO SCH ×2 (08:21→20:05)
[2021-03-23] MEDS: ALPRAZolam 0.5mg tablet PO SCH ×3 (08:21→20:05)
[2021-03-23] MEDS: atorvastatin 10mg tablet PO SCH (08:21)
[2021-03-23] MEDS: carVEDilol 12.5mg tablet PO SCH ×2 (08:21→20:04)
[2021-03-23] MEDS: aripiprazole 5mg tablet PO SCH (08:21)
[2021-03-23] MEDS: metFORMIN 500mg tablet PO SCH ×2 (08:22→20:05)
[2021-03-23] MEDS: gabapentin 100mg capsule PO SCH ×3 (08:22→20:06)
[2021-03-23] MEDS: lisinopril 5mg tablet PO SCH (08:22)
[2021-03-23 10:43] LABS: CHOL/HDL RATIO 1.7 (0.00-4.99); CHOLESTEROL 89 MG/DL (0-200); HDL CHOLESTEROL 52 MG/DL (35-60); LDL CHOLESTEROL 31 MG/DL (50-100); TRIGLYCERIDES 25 MG/DL (20-135)
[2021-03-23 10:55] LABS: HEMOGLOBIN A1C 6.7 % (4.5-6.2)
[2021-03-23] MEDS: ibuprofen 200mg tablet PO PRN (14:55)
[2021-03-23] MEDS: LIDOcaine 5% patch TP PRN (15:15)
--- NOTE | 2021-03-23 17:29 | NUR ---
Nursing Progress Note: [place] Legal hold: 5150 Client on involuntary status for GD. Report received from JOSSIE Lynne with use of SBAR. Why are they here: Pt is placed on a 5150 for gd. Pt believes he is here on a police protection from the [employer]. Pt has a hx of bipolar. Pt is easily agitated and aggressive towards staff in the ED. Pt is on abx for cellulites to Lower extremity. Diagnosis/presenting symptoms: GD, psychosis Assessment What has happened this shift: Patient was noted sleeping in bed upon shift change. He joined in the community room for breakfast, noted interacting appropriately with peers. Patient appears to be polite, appropriate, and cooperative with care. He is compliant with medications. RTN Rasagiline 1mg PO was non-admin at 0800 due to medication not available. This television script writer spoke with patients son on this shift, who will be dropping off the medication later today 03/23/21. 1:1 assessment completed, lungs CTA. Patient noted sitting in the community room at snack time around 1100, eating his food quietly by himself. He was noted interacting with peers on the unit throughout the day. He took several short naps in his room. He denies SI/HI, AH or VH. Does not appear to be responding to internal stimuli. Patient refused RTN Xanax 0.5mg at 1300, stating that he is already fked up enough in the head. Pt c/o back pain at approximately 1450 on this shift. PRN Motrin 600mg PO and PRN Lidoderm Patch given with effectiveness. Patient noted making delusional statements of firing the guys in the suits who work here and keep stealing all the money. He was active on the unit the remainder of the day and participated in the community room for snack/ meal times. S/I, H/I: Denies A/VH: Denies Sleep: Pt slept 3.5 hours last night per NOC shift, several short naps today ADL's: Requires prompting Group attendance: No group provided today Were meds taken: Yes- except refusal of RTN Xanax 0.5mg at 1300, stating that he is already fked up enough in the head Any med S/E: None noted or observed Mental Status Exam Appearance: Groomed, neat, wearing green unit scrubs Eye contact: Good Behavior: Polite, cooperative, appropriate Speech: Clear, WNL Mood: Pleasant, composed Affect: Congruent with mood Thought process: Circumstantial, disorganized Thought Content: Meeting needs Cognition: A&O x4 Insight: Poor Judgment: Poor Interventions PRN's used: PRN Motrin 600mg PO and PRN Lidoderm Patch Therapeutic interventions: Established rapport, maintained a safe and supportive environment, ensured contract for safety, provided clear and simple instructions, attempted to orient to reality, provided active listening and positive encouragement, medication education/monitoring, encouraged independent performance of ADLs, and maintained Q 15min safety checks. Restraints/seclusion/emergency medication: None Justification of Continued Inpatient Treatment: Patient requires interruption of current crises, medication adjustment/ monitoring, and a safe and supportive environment. Per Dr. Palacios, Patient should be admitted to the hospital to the psychiatric unit, given his recent episode in my opinion he is still not stable and will require a higher level of care until his symptoms subside completely.
[2021-03-23 19:36] VITALS: BP 143/63
[2021-03-23] MEDS: ARIPIPRAZOLE 10 MG TABLET PO SCH (20:05)
[2021-03-23] MEDS: primidone 50mg tablet PO SCH (20:06)
[2021-03-23] MEDS: carbidopa/levodopa 50/200mg CR tablet PO SCH (20:07)
--- NOTE | 2021-03-23 23:50 | NUR ---
Nursing Progress Note: [place] Seg[place] Legal hold: 5150 Client on involuntary status for GD. Report received from JOSSIE Sneed with use of SBAR. Why are they here: Pt is placed on a 5150 for gd. Pt believes he is here on a police protection from the [employer]. Pt has a hx of bipolar. Pt is easily agitated and aggressive towards staff in the ED. Pt is on abx for cellulites to Lower extremity. Diagnosis/presenting symptoms: GD, psychosis Assessment What has happened this shift: Patient was in the group room eating his dinner at shift change. Pt was sitting by him self and appears to be attention seeking. He request help with the smallest of things like can you hand me my cup that is in arms length. he is on his call light multiple times at night witch is with in arms reach on his night stand. S/I, H/I: Denies A/VH: Denies Sleep: See sleep assessment ADL's: Requires prompting Group attendance: No group provided today Were meds taken: Yes- except refusal of RTN Xanax 0.5mg at 1300, stating that he is already fked up enough in the head Any med S/E: None noted or observed Mental Status Exam Appearance: Groomed, neat, wearing green unit scrubs Eye contact: Good Behavior: Polite, cooperative, appropriate Speech: Clear, WNL Mood: Pleasant, composed Affect: Congruent with mood Thought process: Circumstantial, disorganized Thought Content: Meeting needs Cognition: A&O x4 Insight: Poor Judgment: Poor Interventions PRN's used: none. Therapeutic interventions: Established rapport, maintained a safe and supportive environment, ensured contract for safety, provided clear and simple instructions, attempted to orient to reality, provided active listening and positive encouragement, medication education/monitoring, encouraged independent performance of ADLs, and maintained Q 15min safety checks. Restraints/seclusion/emergency medication: None Justification of Continued Inpatient Treatment: Patient requires interruption of current crises, medication adjustment/ monitoring, and a safe and supportive environment. Per Dr. aPlacios, Patient should be admitted to the hospital to the psychiatric unit, given his recent episode in my opinion he is still not stable and will require a higher level of care until his symptoms subside completely.
[2021-03-24 07:42] VITALS: BP 147/69
[2021-03-24] MEDS: aripiprazole 5mg tablet PO SCH ×2 (07:57→20:10)
[2021-03-24] MEDS: atorvastatin 10mg tablet PO SCH (07:57)
[2021-03-24] MEDS: aspirin 325mg tablet PO SCH (07:58)
[2021-03-24] MEDS: lisinopril 5mg tablet PO SCH (07:58)
[2021-03-24] MEDS: gabapentin 100mg capsule PO SCH ×3 (07:59→20:07)
[2021-03-24] MEDS: carVEDilol 12.5mg tablet PO SCH ×2 (07:59→20:08)
[2021-03-24] MEDS: lactobacillus rhamnosus 10,000 MMU CELLS/CAPSULE PO SCH ×2 (07:59→20:07)
[2021-03-24] MEDS: metFORMIN 500mg tablet PO SCH ×2 (07:59→20:07)
[2021-03-24] MEDS: RASAGILINE 1MG TABLET PO SCH (08:00)
[2021-03-24] MEDS: ALPRAZolam 0.5mg tablet PO SCH ×3 (08:00→20:16)
--- NOTE | 2021-03-24 14:05 | NUR ---
Pt. attended group today. We talked about hearing voices and read an article about coping strategies. We discussed what coping strategies they had success with in the past. We also talked about what triggers hearing voices as well. Pt was in the group then left for a few minutes but then returned stating that he had had to go use the bathroom. He was alert and oriented X 4. His thought content and thought process was WNL. He shared appropriately with the group mostly sharing about his own coping mechanisms which he reported were music and his spirituality. He was friendly and open to his peers in the group, he appeared to enjoy socializing Violet Waddell LCSW
--- NOTE | 2021-03-24 18:04 | NUR ---
Nursing Progress Note: [place] Seg[place] Legal hold: 5150 Client on involuntary status for GD. Report received from JOSSIE Amaya with use of SBAR. Why are they here: Pt is placed on a 5150 for gd. Pt believes he is here on a police protection from the [employer]. Pt has a hx of bipolar. Pt is easily agitated and aggressive towards staff in the ED. Pt is on abx for cellulites to Lower extremity. Diagnosis/presenting symptoms: GD, psychosis Assessment What has happened this shift: RN received pt. asleep in bed at start of shift. Pt. awoke before breakfast and requesting coffee. Pt. ate breakfast in the community room and took all medications except for Xanax. Pt. states, Ill take that at night, it makes me too tired. 1:1 done in community room. Pt. states he feels good and feels grateful for his 9 grandchildren. Pt. c/o side effect of drooling, RN reported S/E to provider. Pt. has 3+ pitting edema on bilateral extremities, pt.s cellulitis seems to have cleared up. Provider requests to monitor wounds on pt.s legs which have no drainage, are dry and open to air. S/I, H/I: Denies A/VH: Denies Sleep: Pt slept 2.75 hours last night per NOC shift, and napped intermittently during the day. ADL's: Independent with prompting. Group attendance: Yes Were meds taken: Yes, except for Xanax. Any med S/E: Drooling, sedation. Mental Status Exam Appearance: Disheveled, wearing soiled casual attire. Eye contact: Good Behavior: Polite, cooperative, appropriate Speech: WNL Mood: Euthymic Affect: Congruent with mood Thought process: Linear Thought Content: Circumstantial Cognition: A&Ox4 Insight: Poor Judgment: Poor Interventions PRN's used: None Therapeutic interventions: Established rapport, maintained a safe and supportive environment, ensured contract for safety, provided clear and simple instructions, attempted to orient to reality, provided active listening and positive encouragement, medication education/monitoring, encouraged independent performance of ADLs, and maintained Q 15min safety checks. Restraints/seclusion/emergency medication: None Justification of Continued Inpatient Treatment: Patient requires interruption of current crises, medication adjustment/ monitoring, and a safe and supportive environment. Per Dr. Palacios, Patient should be admitted to the hospital to the psychiatric unit, given his recent episode in my opinion he is still not stable and will require a higher level of care until his symptoms subside completely.
[2021-03-24 20:08] VITALS: BP 136/74
[2021-03-24] MEDS: carbidopa/levodopa 50/200mg CR tablet PO SCH (20:10)
[2021-03-24] MEDS: primidone 50mg tablet PO SCH (20:12)
[2021-03-24] MEDS: traZODone 50mg tablet PO SCH (20:17)
--- NOTE | 2021-03-25 00:36 | NUR ---
Nursing Progress Note: Hunter Segovia Legal hold: 5150 Client on involuntary status for GD. Report received from JOSSIE Amaya with use of SBAR. Why are they here: Pt is placed on a 5150 for gd. Pt believes he is here on a police protection from the [place]. Pt has a hx of bipolar. Pt is easily agitated and aggressive towards staff in the ED. Pt is on abx for cellulites to Lower extremity. Diagnosis/presenting symptoms: GD, psychosis Assessment What has happened this shift: Patient has been in bed the entire shift with c/o multiple symptoms. He has kept his room mate up. Pt c/o of having a stroke and could not move his right side VT's taken 164/75 p 75 O2 97 t 98.9 r 18. During assessment pt was sitting on the edge of the bed and was able to lye down and pick his left leg up and then his right without assistance. Ther is no facial drop noted or slurred speech. 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 When pt was explaining that he could not move his right arm it went from laying on the bed to holding it 6 inches over his leg. Pt stated earlier when in over [place] that if he is moved uo stairs he will be the worst pt there is. He is refusing his Xanax and Trazodone which might help him sleep. He states that he dose not want to take medication just wasnts to be moved off this unit. S/I, H/I: Denies A/VH: Denies Sleep: See sleep assessment ADL's: Independent with prompting. Group attendance: Yes Were meds taken: Yes, except for Xanax. Any med S/E: Drooling, sedation. Mental Status Exam Appearance: Disheveled, wearing soiled casual attire. Eye contact: Good Behavior: Polite, cooperative, appropriate Speech: WNL Mood: Euthymic Affect: Congruent with mood Thought process: Linear Thought Content: Circumstantial Cognition: A&Ox4 Insight: Poor Judgment: Poor Interventions PRN's used: None Therapeutic interventions: Established rapport, maintained a safe and supportive environment, ensured contract for safety, provided clear and simple instructions, attempted to orient to reality, provided active listening and positive encouragement, medication education/monitoring, encouraged independent performance of ADLs, and maintained Q 15min safety checks. Restraints/seclusion/emergency medication: None Justification of Continued Inpatient Treatment: Patient requires interruption of current crises, medication adjustment/ monitoring, and a safe and supportive environment. Per Dr. Palacios, Patient should be admitted to the hospital to the psychiatric unit, given his recent episode in my opinion he is still not stable and will require a higher level of care until his symptoms subside completely.
[2021-03-25] MEDS: aspirin 325mg tablet PO SCH (08:00)
[2021-03-25] MEDS: metFORMIN 500mg tablet PO SCH (08:00)
[2021-03-25] MEDS: lactobacillus rhamnosus 10,000 MMU CELLS/CAPSULE PO SCH ×2 (08:00→20:00)
[2021-03-25] MEDS: RASAGILINE 1MG TABLET PO SCH (08:00)
[2021-03-25] MEDS: ALPRAZolam 0.5mg tablet PO SCH ×3 (08:00→20:16)
[2021-03-25] MEDS: carVEDilol 12.5mg tablet PO SCH ×2 (08:03→20:08)
[2021-03-25] MEDS: lisinopril 5mg tablet PO SCH (08:04)
[2021-03-25] MEDS: atorvastatin 10mg tablet PO SCH (08:04)
[2021-03-25] MEDS: gabapentin 100mg capsule PO SCH ×2 (08:05→12:53)
[2021-03-25 08:37] VITALS: BP 158/80
--- NOTE | 2021-03-25 11:31 | NUR ---
Nursing Progress Note: Hunter Segovia Legal hold: 5150 Client on involuntary status for GD . Report received from JOSSIE Clark with use of SBAR. Why are they here: Pt is placed on a 5150 for gd. Pt believes he is here on a police protection from the [place]. Pt has a hx of bipolar. Pt is easily agitated and aggressive towards staff in the ED. Pt is on abx for cellulites to Lower extremity. Diagnosis/presenting symptoms: GD, psychosis Assessment What has happened this shift: Pt isolated to his room most of the day, periodically yelling at staff. pt is rude, condescending and resistant to care. pt called for help and when this rn approached the pt requested his water be handed to him despite it sitting right next to him. when this rn refused, the pt began yelling obscenities. pt refused multiple medications for bizarre reasons. S/I, H/I: Denies A/VH: Denies Sleep: napped most of the day ADL's: Independent with prompting. Group attendance: Yes Were meds taken: Yes, except for Xanax, culturelle, metformin Any med S/E: none Mental Status Exam Appearance: Disheveled, wearing soiled scrubs. Eye contact: Good Behavior: angry, rude Speech: WNL Mood: Euthymic Affect: Congruent with mood Thought process: Linear Thought Content: Circumstantial Cognition: A&Ox4 Insight: Poor Judgment: Poor Interventions PRN's used: None Therapeutic interventions: Established rapport, maintained a safe and supportive environment, ensured contract for safety, provided clear and simple instructions, attempted to orient to reality, provided active listening and positive encouragement, medication education/monitoring, encouraged independent performance of ADLs, and maintained Q 15min safety checks. Restraints/seclusion/emergency medication: None Justification of Continued Inpatient Treatment: Patient requires interruption of current crises, medication adjustment/ monitoring, and a safe and supportive environment. Per Dr. Palacios, Patient should be admitted to the hospital to the psychiatric unit, given his recent episode in my opinion he is still not stable and will require a higher level of care until his symptoms subside completely. Addendum: 03/25/21 at 1755 by Andre Valentine RN No Metformin for [address] w/ contrast of his head for headache. pt is to not have metformin for 48 hours.
--- NOTE | 2021-03-25 13:33 | NUR ---
PSYCHOSOCIAL ASSESSMENT Pt was exhibiting delusional thoughts, paranoia, and fears Dionisio floyd is after his life and he believes he is at [facility] on police protection. There are no supports in place in his home environment at this time. Pt reported that he does have four children, three children who live in [place] and one who lives further away. He reported that his children are busy with their own lives so he cant always rely on their support. Pt. has a history of three psychiatric hospitalizations for suicide attempts which he confirmed today when we spoke. He didnt want to give much information about these episodes and stated, Go look at my history, its in there. He currently receives outpatient mental health treatment with Dr. Thurman at [facility]. Pt. would not consent for anyone to call his children. He denied using substances but did say he smokes marijuana occasionally. He reported he has Medicare and his main source of income is his social security. He lives on his own and does all his own cooking and cleaning. He feels he probably does need more help at this point at home with ADLs but reported that he would have to pay for these services out of pocket. While talking to him today Pt. denied feeling suicidal but did endorse this idea that he is here for protection but would not elaborate on that. He was laying on his bed, his arm was shaking a lot and he kept saying he believed he had a stroke. He maintained his calm though he appeared frustrated about not how he is feeling. When asked what he thinks he needs upon discharge he stated, " need to go to a step down critical care intermediate facility". Pt. also reported that he has Parkinson's (this Mortar Man is not sure if this is true) and is having difficulty getting around his apartment physically. He also reported he thinks he has a stroke but could not give a clear reason why he feels this way only stating he is having a hard time thinking. He reported he was going to [employer] regularly to work out up until about 6 months ago. Violet Waddell LCSW
--- NOTE | 2021-03-25 13:54 | NUR ---
DM consult: A1C 6.7 well controlled, DM education not indicated at this time. Will continue to monitor. Addendum: 03/25/21 at [address] Amended: Links added.
[2021-03-25] MEDS ORDERED: iohexol 300mg/ml 100ml inj. ONE (17:10)
[2021-03-25] MEDS: carbidopa/levodopa 50/200mg CR tablet PO SCH (20:08)
[2021-03-25] MEDS: primidone 50mg tablet PO SCH (20:08)
[2021-03-25] MEDS: traZODone 50mg tablet PO SCH (20:08)
[2021-03-25] MEDS: gabapentin 300mg capsule PO SCH (20:08)
[2021-03-25] MEDS: aripiprazole 5mg tablet PO SCH (20:15)
[2021-03-25 20:44] VITALS: BP 141/69
--- NOTE | 2021-03-26 00:01 | NUR ---
Nursing Progress Note: Legal hold: 5150 Client on involuntary status for GD . Report received from JOSSIE Clark with use of SBAR. Why are they here: Pt is placed on a 5150 for gd. Pt believes he is here on a police protection from the [employer]. Pt has a hx of bipolar. Pt is easily agitated and aggressive towards staff in the ED. Pt is on abx for cellulites to Lower extremity. Diagnosis/presenting symptoms: GD, psychosis Assessment What has happened this shift: Pt continues to isolate to his room and will occasionally yell out demands of staff. Pt denies being suicidal or having hallucinations and pt is not observed responding to IS. Pt is independent of care but needs reminders that he is capable. Pt refused his Xanax and abilify. S/I, H/I: Denies A/VH: Denies Sleep: see sleep assessment ADL's: Independent with prompting. Group attendance: Yes Were meds taken: Yes, except for Xanax, abilify. Any med S/E: none Mental Status Exam Appearance: Disheveled, wearing soiled scrubs. Eye contact: Good Behavior: angry, rude Speech: WNL Mood: Euthymic Affect: Congruent with mood Thought process: Linear Thought Content: Circumstantial Cognition: A&Ox4 Insight: Poor Judgment: Poor Interventions PRN's used: None Therapeutic interventions: Established rapport, maintained a safe and supportive environment, ensured contract for safety, provided clear and simple instructions, attempted to orient to reality, provided active listening and positive encouragement, medication education/monitoring, encouraged independent performance of ADLs, and maintained Q 15min safety checks. Restraints/seclusion/emergency medication: None Justification of Continued Inpatient Treatment: Patient requires interruption of current crises, medication adjustment/ monitoring, and a safe and supportive environment. Per Dr. Palacios, Patient should be admitted to the hospital to the psychiatric unit, given his recent episode in my opinion he is still not stable and will require a higher level of care until his symptoms subside completely.
[2021-03-26 07:43] VITALS: BP 144/69
[2021-03-26] MEDS: gabapentin 300mg capsule PO SCH ×3 (08:11→20:22)
[2021-03-26] MEDS: ALPRAZolam 0.5mg tablet PO SCH ×3 (08:11→20:23)
[2021-03-26] MEDS: carVEDilol 12.5mg tablet PO SCH ×2 (08:11→20:22)
[2021-03-26] MEDS: lactobacillus rhamnosus 10,000 MMU CELLS/CAPSULE PO SCH ×2 (08:11→20:22)
[2021-03-26] MEDS: aspirin 325mg tablet PO SCH (08:11)
[2021-03-26] MEDS: atorvastatin 10mg tablet PO SCH (08:11)
[2021-03-26] MEDS: lisinopril 5mg tablet PO SCH (08:12)
[2021-03-26] MEDS: acetaminophen 325mg tablet PO PRN (08:23)
--- NOTE | 2021-03-26 14:02 | NUR ---
Initial: Pt admit DX bipolar d/o hx T2DM A1C 6.7, CHF, and smoking per EMR. Pt PO ~100% most heart healthy diet meals meeting needs. Noted pt previously receiving metformin however stopped yesterday w/ last Glu check 03/17 and last CMP 03/14 serum Na 129 at that time. NAHUM d/w RN regarding routine Glu checks, Glu coverage, and updated CMP if MD agreeable. LBM 03/24. No nutrition intervention at this time. Will continue to monitor. Rec: 1. continue heart healthy diet; consider changing to carb controlled diet pending new labs w/ 03/14 serum Na 129 2. Glu coverage per MD; hx T2DM last Glu check 03/17 no longer on coverage 3. routine bowel care 4. weekly wts Addendum: 03/26/21 at [address] Amended: Links added.
[2021-03-26 15:38] LABS: BASOPHILS % (AUTO) 0.6 % (0-1); EOSINOPHILS # (AUTO) 0.1 X10'3 (0-0.9); EOSINOPHILS % (AUTO) 2.3 % (0-6); HEMATOCRIT 38.2 % (42.0-52.0); HEMOGLOBIN 12.8 g/dl (14.0-17.9); LYMPHOCYTES # (AUTO) 1.5 X10'3 (1.1-4.8); LYMPHOCYTES % (AUTO) 32.3 % (21-51); MEAN CORPUSCULAR HEMOGLOBIN 25.8 PG (27.0-31.0); MEAN CORPUSCULAR HGB CONC 33.5 g/dL (33.0-36.5); MEAN CORPUSCULAR VOLUME 77.1 FL (78-98); MEAN PLATELET VOLUME 9.1 FL (7.4-10.4); MONOCYTES # (AUTO) 0.6 X10'3 (0-0.9); MONOCYTES % (AUTO) 13.5 % (2-12); NEUTROPHILS # (AUTO) 2.4 X10'3 (1.8-7.7); NEUTROPHILS % (AUTO) 51.3 % (42-75); PLATELET COUNT 182 X10'3 (140-440); RED BLOOD COUNT 4.95 X10'6 (4.70-6.10); RED CELL DISTRIBUTION WIDTH 15.6 % (11.5-14.5); WHITE BLOOD COUNT 4.6 X10'3 (4.5-11.0)
[2021-03-26 15:59] LABS: ALANINE AMINOTRANSFERASE 20 U/L (12-78); ALBUMIN 3.5 G/DL (3.4-5.0); ALKALINE PHOSPHATASE 89 IU/L (46-116); ANION GAP 8 (8-16); ASPARTATE AMINO TRANSFERASE 18 U/L (10-37); BILIRUBIN,TOTAL 0.5 MG/DL (0.1-1.0); BLOOD UREA NITROGEN 18 MG/DL (7-18); BUN/CREATININE RATIO 26.9 (5.4-32.0); CALCIUM 8.8 MG/DL (8.5-10.1); CHLORIDE 98 MMOL/L (99-107); CREATININE 0.67 MG/DL (0.60-1.10); GLUCOSE 127 MG/DL (70-104); POTASSIUM 4.4 MMOL/L (3.5-5.1); SODIUM 134 MMOL/L (135-145); TOTAL CARBON DIOXIDE 28.4 MMOL/L (24-32); TOTAL PROTEIN 6.9 G/DL (6.4-8.2); eGFR > 90 ML/MIN
--- NOTE | 2021-03-26 17:51 | NUR ---
Nursing Progress Note: Legal hold: 5250 Client on involuntary status for GD. Report received from JOSSIE Clark with use of SBAR. Why are they here: Pt is placed on a 5150 for gd. Pt believes he is here on a police protection from the [employer]. Pt has a hx of bipolar. Pt is easily agitated and aggressive towards staff in the ED. Pt is on abx for cellulites to Lower extremity. Diagnosis/presenting symptoms: GD, psychosis Assessment What has happened this shift: RN received pt. asleep in bed at start of shift. Pt. awoke for breakfast and took all medications. Pt. requested Tylenol 650mg for right knee pain with good effect. Pt. went back to sleep after breakfast. 1:1 done at bedside, pt. denies SI/HI, A/V hallucinations. Pt. c/o of sedation and drooling due to medications. RN informed pt.s provider of SE. Provider to titrate medications. After lunch pt. was observed socializing in the community room with peers. Pt. found to have urinated himself in the afternoon, pt. reports that he could not make it to the bathroom. S/I, H/I: Denies A/VH: Denies Sleep: 5.75 hrs on NOC shift and pt. napped intermittently throughout the day. ADL's: Independent with prompting. Pt. was incontinent x1 of urine. Group attendance: No Were meds taken: Yes Any med S/E: Drooling, sedation. Reported to provider. Mental Status Exam Appearance: Disheveled, wearing clean green scrubs. Eye contact: Good. Behavior: Cooperative, social with peers and staff, withdrawn to room at times. Speech: WNL Mood: Euthymic Affect: Congruent with mood Thought process: Linear Thought Content: Circumstantial Cognition: A&Ox4 Insight: Poor Judgment: Poor Interventions PRN's used: Tylenol 650mg po x1 Therapeutic interventions: Established rapport, maintained a safe and supportive environment, ensured contract for safety, provided clear and simple instructions, attempted to orient to reality, provided active listening and positive encouragement, medication education/monitoring, encouraged independent performance of ADLs, and maintained Q 15min safety checks. Restraints/seclusion/emergency medication: None Justification of Continued Inpatient Treatment: Patient requires interruption of current crises, medication adjustment/ monitoring, and a safe and supportive environment. Per Dr. Palacios, Patient should be admitted to the hospital to the psychiatric unit, given his recent episode in my opinion he is still not stable and will require a higher level of care until his symptoms subside completely.
[2021-03-26 19:22] VITALS: BP 122/48
[2021-03-26] MEDS: carbidopa/levodopa 50/200mg CR tablet PO SCH (20:22)
[2021-03-26] MEDS: aripiprazole 5mg tablet PO SCH (20:23)
[2021-03-26] MEDS: primidone 50mg tablet PO SCH (20:23)
[2021-03-26] MEDS: traZODone 50mg tablet PO SCH (20:23)
[2021-03-27] MEDS: LIDOcaine 5% patch TP PRN (01:59)
--- NOTE | 2021-03-27 02:39 | NUR ---
Nursing Progress Note: Curtis Legal hold: 5250 Client on involuntary status for GD. Report received from JOSSIE Powell with use of SBAR. Why are they here: Pt is placed on a 5150 for gd. Pt believes he is here on a police protection from the [place]. Pt has a hx of bipolar. Pt is easily agitated and aggressive towards staff in the ED. Pt is on abx for cellulites to Lower extremity. Diagnosis/presenting symptoms: GD, psychosis Assessment What has happened this shift: RN received pt sitting up in bed. CN was helping pt get into a chair to eat some snacks. Pt was having some S/E of medicationsdrooling and sedation. Dr Palacios lowered pt Abilify from 15 MG to 10 MG. Pt refused Xanax and Trazadone. Pt is calm and cooperative, denies MH symptoms, pt retired to bed early after medication administration. S/I, H/I: Denies A/VH: Denies Sleep: ADL's: Independent with prompting. Group attendance: No Were meds taken: Yes Any med S/E: Drooling, sedation. Mental Status Exam Appearance: Disheveled, wearing clean green scrubs. Eye contact: Good. Behavior: Cooperative, social with peers and staff, withdrawn to room at times. Speech: WNL Mood: Euthymic Affect: Congruent with mood Thought process: Linear Thought Content: Circumstantial Cognition: A&Ox4 Insight: Poor Judgment: Poor Interventions PRN's used: Therapeutic interventions: Established rapport, maintained a safe and supportive environment, ensured contract for safety, provided clear and simple instructions, attempted to orient to reality, provided active listening and positive encouragement, medication education/monitoring, encouraged independent performance of ADLs, and maintained Q 15min safety checks. Restraints/seclusion/emergency medication: None Justification of Continued Inpatient Treatment: Patient requires interruption of current crises, medication adjustment/ monitoring, and a safe and supportive environment. Per Dr. Palacios, Patient should be admitted to the hospital to the psychiatric unit, given his recent episode in my opinion he is still not stable and will require a higher level of care until his symptoms subside completely.
[2021-03-27 08:00] VITALS: BP 124/80
[2021-03-27] MEDS: ALPRAZolam 0.5mg tablet PO SCH ×2 (08:00→12:56)
[2021-03-27] MEDS: aspirin 325mg tablet PO SCH (08:49)
[2021-03-27] MEDS: gabapentin 300mg capsule PO SCH ×3 (08:49→20:22)
[2021-03-27] MEDS: carVEDilol 12.5mg tablet PO SCH ×2 (08:49→20:23)
[2021-03-27] MEDS: ibuprofen 200mg tablet PO PRN (08:49)
[2021-03-27] MEDS: atorvastatin 10mg tablet PO SCH (08:49)
[2021-03-27] MEDS: lactobacillus rhamnosus 10,000 MMU CELLS/CAPSULE PO SCH ×2 (08:49→20:22)
[2021-03-27] MEDS: lisinopril 5mg tablet PO SCH (08:49)
--- NOTE | 2021-03-27 10:26 | NUR ---
Today we talked about the definition or resiliency, the ways to build resiliency and how to bounce back. We also discussed having Hope and where their hope levels were today. Pt engaged well in the activity, he connected well with his peer. They had to listen to each other for a minute and then shared what they learned in order to work on socialization and connection as a way to build resiliency. Pt. listened well and shared what he learned. He and his peer appeared to enjoy their connection time. He was alert and oriented X 4. His thought content and thought process was WNL during the group today. His demeanor was calm and compliant. His mood was good with a full range of affect. Violet Waddell LCSW
[2021-03-27] MEDS: acetaminophen 325mg tablet PO PRN (12:49)
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
[2021-03-27] MEDS ORDERED: ALPRAZolam 0.5mg tablet PO PRN (16:50)
[2021-03-27 20:00] VITALS: BP 142/69
[2021-03-27] MEDS: aripiprazole 5mg tablet PO SCH (20:22)
[2021-03-27] MEDS: primidone 50mg tablet PO SCH (20:22)
[2021-03-27] MEDS: carbidopa/levodopa 50/200mg CR tablet PO SCH (20:23)
[2021-03-27] MEDS: traZODone 50mg tablet PO SCH (20:23)
--- NOTE | 2021-03-28 01:17 | NUR ---
Nursing Progress Note: Curtis Legal hold: Voluntary Client on voluntary status for GD Report received from nurse with use of SBAR: Andre SETHI Why are they here: Pt is placed on a 5150 for gd. Pt believes he is here on a police protection from the [employer]. Pt has a hx of bipolar. Pt is easily agitated and aggressive towards staff in the ED. Pt is on abx for cellulites to Lower extremity. Assessment What has happened this shift: Received pt. sitting in the hallway on his walker. Pt was calm and cooperative with care and denies all MH symptoms. Pt needed assistance from sitting position to standing up to use the urinal, declined snacks and took prescribed HS medication excluding trazadone. He states his mentation feels somewhat better now that the Abilify has been decreased. S/I, H/I: Denies A/VH: Denies, does not appear internally preoccupied Sleep: ADL's: Pt. requires moderate assistance from staff with transfer, ambulate with use of FWW Group attendance: Yes Were meds taken: Pt. refused trazadone Any med S/E: pt states he is still drooling but mentation feels better Mental Status Exam Appearance: Hair and clothing somewhat disheveled r/t laying in bed, however pt. is appropriately dressed Eye contact: Good Behavior: Cooperative, restless, and guarded when discussing MH s/s Speech: WNL Mood: Pleasant Affect: Blunted with animation Thought process: Linear and goal directed, however can become circumstantial at times Thought Content: Perseveration on different items and medications and possibly ongoing paranoid delusions Cognition: A&O X3 (not to reason here) Insight: Poor Judgment: Poor Interventions PRN's used: Therapeutic interventions: Introduced self and established rapport, maintained a safe and supportive environment, ensured contract for safety, provided clear and simple instructions, encouraged independent performance of ADLs and provided assistance as needed, obtained a knee brace for patient, encouraged participation on the unit, and maintained Q 15min safety checks. Restraints/seclusion/emergency medication: N/A Justification of Continued Inpatient Treatment: Per Dr. Palacios, pt. continues to be gravely disabled and requires medication adjustments and a safe and supportive environment.
[2021-03-28 08:00] VITALS: BP 131/71
[2021-03-28] MEDS: lactobacillus rhamnosus 10,000 MMU CELLS/CAPSULE PO SCH ×2 (08:52→20:20)
[2021-03-28] MEDS: aspirin 325mg tablet PO SCH (08:52)
[2021-03-28] MEDS: carVEDilol 12.5mg tablet PO SCH ×2 (08:52→20:20)
[2021-03-28] MEDS: gabapentin 300mg capsule PO SCH ×3 (08:52→20:23)
[2021-03-28] MEDS: atorvastatin 10mg tablet PO SCH (08:52)
[2021-03-28] MEDS: lisinopril 5mg tablet PO SCH (08:53)
[2021-03-28] MEDS: ibuprofen 200mg tablet PO PRN (08:53)
[2021-03-28] MEDS: acetaminophen 325mg tablet PO PRN (12:54)
--- NOTE | 2021-03-28 15:11 | NUR ---
Nursing Progress Note: Legal hold: Voluntary Client on voluntary status for GD Report received from nurse with use of SBAR: Mamie Carlson RN Why are they here: Pt is placed on a 5150 for gd. Pt believes he is here on a police protection from the [employer]. Pt has a hx of bipolar. Pt is easily agitated and aggressive towards staff in the ED. Pt is on abx for cellulites to Lower extremity. Assessment What has happened this shift: Received pt. sleeping in bed at the beginning of the shift, he awoke and required assistance with transfer, but was able to ambulate independently with use of FWW and left knee brace. He continues to require encouragement in order to independently complete ADLs. After breakfast, pt. returned back to bed and 1:1 was completed at bedside. Pt. continues to deny any MH s/s, however remains guarded with any conversation regarding mental health and appears to be minimizing. When questioned regarding any further paranoid delusions regarding the [place] [employer], pt. states, "Well that was for real. 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 He also questions this life insurance underwriter multiple times regarding her own home, and perseverates on his desire to "set others up" with their own grow or come over and complete renovations. Pt. requires redirection and orientation to reality. pt. attends groups and naps intermittently during the day. He is observed to be interacting appropriately with others. S/I, H/I: Denies A/VH: Denies, does not appear internally preoccupied Sleep: Sleep hours are 5.25, and pt. naps intermittently during the day ADL's: Pt. continues to require some assistance with transferring, however he is able to ambulate using his FWW and left knee brace this shift. Group attendance: Yes Were meds taken: Yes Any med S/E: Pt. continues to exhibit some drooling and a course bilateral upper extremity tremor, MD aware and medications are being monitored. Mental Status Exam Appearance: Hair and clothing disheveled, he was encouraged to shower, however refused Eye contact: Good Behavior: Cooperative, restless, and guarded when discussing MH s/s Speech: WNL Mood: Pleasant Affect: Blunted with animation Thought process: Circumstantial with disorganization at times. Thought Content: Perseveration on different items and medications and possibly ongoing paranoid delusions Cognition: A&O X3 (not to reason here) Insight: Poor Judgment: Poor Interventions PRN's used: Tylenol Therapeutic interventions: Maintained a safe and supportive environment, ensured contract for safety, provided clear and simple instructions, encouraged independent performance of ADLs and provided assistance as needed, encouraged participation on the unit, and maintained Q 15min safety checks. Restraints/seclusion/emergency medication: N/A Justification of Continued Inpatient Treatment: Per Dr. Palacios, continues to require a safe and supportive environment, and monitoring regarding his response to medications.
--- NOTE | 2021-03-28 16:40 | NUR ---
Discharge: Per NACHO Bermudez, although pt's status is voluntary, he continues to be gravely disabled. If pt. decides he wants to leave, please notify this manual writer and a new hold will be written.
[2021-03-28] MEDS: LIDOcaine 5% patch TP PRN (17:05)
[2021-03-28 20:00] VITALS: BP 156/90
[2021-03-28] MEDS: metFORMIN 500mg tablet PO SCH (20:20)
[2021-03-28] MEDS: carbidopa/levodopa 50/200mg CR tablet PO SCH (20:20)
[2021-03-28] MEDS: primidone 50mg tablet PO SCH ×2 (20:20→20:28)
[2021-03-28] MEDS: aripiprazole 5mg tablet PO SCH ×2 (20:20→20:28)
[2021-03-28] MEDS: traZODone 50mg tablet PO SCH (20:28)
--- NOTE | 2021-03-29 02:22 | NUR ---
Nursing Progress Note: Curtis Legal hold: Volunteer Client on voluntary status for GD Report received from nurse with use of SBAR: Brigida SETHI Why are they here: Pt is placed on a 5150 for gd. Pt believes he is here on a police protection from the [employer]. Pt has a hx of bipolar. Pt is easily agitated and aggressive towards staff in the ED. Pt is on abx for cellulites to Lower extremity. Assessment What has happened this shift: Received pt. sitting in the community room watching TV with peers. PT states he is doing good but feels worn out today. He requests Accucheck because he believes his BS is high, pt BS is 124. Pt able to ambulate with FWW. PT had snacks and took prescribed HS medication except for the abilify, pt states he doesnt need it. Denies MH symptoms. Retires to bed shortly after med pass. S/I, H/I: Denies A/VH: Denies, does not appear internally preoccupied Sleep: ADL's: Pt. continues to require some assistance with transferring, however he is able to ambulate using his FWW and left knee brace this shift. Group attendance: Were meds taken: Yes, refused abilify Any med S/E: Pt. continues to exhibit some drooling and a course bilateral upper extremity tremor, MD aware and medications are being monitored. Mental Status Exam Appearance: Hair and clothing disheveled, needs encouragement Eye contact: Good Behavior: Cooperative, restless, and guarded when discussing MH s/s Speech: WNL Mood: Pleasant Affect: Blunted with animation Thought process: Circumstantial with disorganization at times. Thought Content: Perseveration on different items and medications and possibly ongoing paranoid delusions Cognition: A&O X3 (not to reason here) Insight: Poor Judgment: Poor Interventions PRN's used: Therapeutic interventions: Maintained a safe and supportive environment, ensured contract for safety, provided clear and simple instructions, encouraged independent performance of ADLs and provided assistance as needed, encouraged participation on the unit, and maintained Q 15min safety checks. Restraints/seclusion/emergency medication: N/A Justification of Continued Inpatient Treatment: Per Dr. Palacios, continues to require a safe and supportive environment, and monitoring regarding his response to medications.
[2021-03-29 08:00] VITALS: BP 134/72
[2021-03-29] MEDS: carVEDilol 12.5mg tablet PO SCH ×3 (08:12→19:58)
[2021-03-29] MEDS: aspirin 325mg tablet PO SCH ×2 (08:12→08:38)
[2021-03-29] MEDS: ibuprofen 200mg tablet PO PRN ×2 (08:12→08:38)
[2021-03-29] MEDS: metFORMIN 500mg tablet PO SCH ×3 (08:12→19:58)
[2021-03-29] MEDS: gabapentin 300mg capsule PO SCH ×4 (08:13→19:58)
[2021-03-29] MEDS: atorvastatin 10mg tablet PO SCH ×2 (08:13→08:37)
[2021-03-29] MEDS: lactobacillus rhamnosus 10,000 MMU CELLS/CAPSULE PO SCH ×2 (08:13→08:38)
[2021-03-29] MEDS: lisinopril 5mg tablet PO SCH ×2 (08:13→08:38)
[2021-03-29] MEDS: LIDOcaine 5% patch TP PRN (08:39)
[2021-03-29] MEDS: acetaminophen 325mg tablet PO PRN (13:00)
--- NOTE | 2021-03-29 16:10 | NUR ---
Nursing Progress Note: Legal hold: Voluntary Client on voluntary status for GD Report received from nurse with use of SBAR: Mamie Carlson RN Why are they here: Pt is placed on a 5150 for gd. Pt believes he is here on a police protection from the [employer]. Pt has a hx of bipolar. Pt is easily agitated and aggressive towards staff in the ED. Pt is on abx for cellulites to Lower extremity. Assessment What has happened this shift: Received pt. sleeping in bed at the beginning of the shift, he awoke and was able to ambulate independently with use of FWW to attend breakfast in the Group Room. Pt. continues to require encouragement in order to independently complete ADLs, and to wear his left knee brace. After breakfast, pt. again returned back to bed and 1:1 was completed at bedside. Pt. continues to deny any MH s/s, however remains guarded with any conversation regarding mental health and appears to be minimizing. He does exhibit some ongoing perseveration on different items and topics, and ongoing paranoid delusions. Pt. questions this play writer in a circumstantial manner regarding what is being charted on him, and then states in a paranoid delusional manner, "You didn't chart what I told you about the [employer] right?" Pt. is observed to be interacting appropriately with others throughout the day. He does exhibit increased fatigue in the afternoon, and requires staff to push him while sitting on his FWW at intervals. S/I, H/I: Denies A/VH: Denies, does not appear internally preoccupied Sleep: Sleep hours are 5.25, and pt. naps intermittently during the day ADL's: Pt. continues to require some assistance with transferring, however he is able to ambulate using his FWW and left knee brace this shift. He does exhibit increased fatigue in the afternoon, and requires staff to push him while sitting on his FWW at intervals. Group attendance: No Were meds taken: Yes Any med S/E: Pt. continues to exhibit a course bilateral upper extremity tremor, MD aware and medications are being monitored. Mental Status Exam Appearance: Hair and clothing disheveled at times, but pt. does change clothes with some needed assistance Eye contact: Good Behavior: Cooperative, restless, and guarded when discussing MH s/s Speech: WNL Mood: Pleasant Affect: Blunted with animation Thought process: Circumstantial Thought Content: Some ongoing perseveration on different items and topics, and ongoing paranoid delusions Cognition: A&O X3 (not to reason here) Insight: Poor Judgment: Poor Interventions PRN's used: Tylenol and Motrin Therapeutic interventions: Maintained a safe and supportive environment, ensured contract for safety, provided clear and simple instructions, encouraged independent performance of ADLs and provided assistance as needed, encouraged participation on the unit, applied left knee brace and encouraged use, and maintained Q 15min safety checks. Restraints/seclusion/emergency medication: N/A Justification of Continued Inpatient Treatment: NACHO Moser, pt. continues to be gravely disabled and does not have a safety plan. He continues to require medication adjustments and a safe and supportive environment.
[2021-03-29] MEDS: carbidopa/levodopa 50/200mg CR tablet PO SCH (19:58)
[2021-03-29] MEDS: aripiprazole 5mg tablet PO SCH (19:58)
[2021-03-29] MEDS: primidone 50mg tablet PO SCH (19:58)
[2021-03-29 20:00] VITALS: BP 105/75
[2021-03-29] MEDS: traZODone 50mg tablet PO SCH (20:56)
--- NOTE | 2021-03-30 00:06 | NUR ---
Nursing Progress Note: Curtis Legal hold: Voluntary Client on voluntary status for GD Report received from nurse with use of SBAR: Maged RN Why are they here: Pt is placed on a 5150 for gd. Pt believes he is here on a police protection from the [employer]. Pt has a hx of bipolar. Pt is easily agitated and aggressive towards staff in the ED. Pt is on abx for cellulites to Lower extremity. Assessment What has happened this shift: Received pt. lying in bed awake resting. PT calm and cooperative with care. Denies MH symptoms and stated he had a good day just tired and ready for bed. Pt requested warm blanket. Pt declined snacks and took all HS medications without issue and went to bed early. S/I, H/I: Denies A/VH: Denies, does not appear internally preoccupied Sleep: S ADL's: Pt. continues to require some assistance with transferring, however he is able to ambulate using his FWW and left knee brace. Group attendance: No Were meds taken: Yes Any med S/E: Pt. continues to exhibit a course bilateral upper extremity tremor, MD aware and medications are being monitored. Mental Status Exam Appearance: Hair and clothing disheveled at times, but pt. does change clothes with some needed assistance Eye contact: Good Behavior: Cooperative, restless, and guarded when discussing MH s/s Speech: WNL Mood: Pleasant Affect: Blunted with animation Thought process: Circumstantial Thought Content: Some ongoing perseveration on different items and topics, and ongoing paranoid delusions Cognition: A&O X3 (not to reason here) Insight: Poor Judgment: Poor Interventions PRN's used: Therapeutic interventions: Maintained a safe and supportive environment, ensured contract for safety, provided clear and simple instructions, encouraged independent performance of ADLs and provided assistance as needed, encouraged participation on the unit, applied left knee brace and encouraged use, and maintained Q 15min safety checks. Restraints/seclusion/emergency medication: N/A Justification of Continued Inpatient Treatment: Per NACHO Bermudez, pt. continues to be gravely disabled and does not have a safety plan. He continues to require medication adjustments and a safe and supportive environment.
[2021-03-30] MEDS: acetaminophen 325mg tablet PO PRN (07:14)
[2021-03-30 08:00] VITALS: BP 120/51
[2021-03-30] MEDS: metFORMIN 500mg tablet PO SCH ×2 (08:28→20:22)
[2021-03-30] MEDS: carVEDilol 12.5mg tablet PO SCH ×2 (08:28→20:22)
[2021-03-30] MEDS: gabapentin 300mg capsule PO SCH ×3 (08:28→20:22)
[2021-03-30] MEDS: atorvastatin 10mg tablet PO SCH (08:28)
[2021-03-30] MEDS: aspirin 325mg tablet PO SCH (08:28)
[2021-03-30] MEDS: lisinopril 5mg tablet PO SCH (08:28)
[2021-03-30] MEDS: ibuprofen 200mg tablet PO PRN (08:29)
--- NOTE | 2021-03-30 15:47 | NUR ---
Nursing Progress Note: Legal hold: Voluntary Client on voluntary status for GD Report received from nurse with use of SBAR: Mamie Carlson RN Why are they here: Pt is placed on a 5150 for gd. Pt believes he is here on a police protection from the [employer]. Pt has a hx of bipolar. Pt is easily agitated and aggressive towards staff in the ED. Pt is on abx for cellulites to Lower extremity. Assessment What has happened this shift: Received pt. sleeping in bed at the beginning of the shift, he awoke and was able to ambulate to the bathroom independently, however requested assistance from staff in applying his left knee brace. Pt. continues to require encouragement and assistance to preform ADLs. 1:1 completed at bedside, pt. continues to deny all MH s/s, and remains guarded when discussing any MH s/s. No delusional statements were made this shift. He again perseverates over his desire to to return home, however when questioned by this sql report writer how he will care for himself, pt. admits, "I need a director multimedia caregiver." Pt. plans to discuss his options for discharge with his social media designer tomorrow. Pt. continues to c/o chronic left knee pain, PRN pain medication administered with effectiveness. Pt. remains up throughout most of the day watching TV with others in the Group Room, and interacting appropriately. He continues to exhibit increased weakness at times, and requires staff to push him back to his room at intervals. S/I, H/I: Denies A/VH: Denies, does not appear internally preoccupied Sleep: Sleep hours are 6.5, and pt. naps intermittently during the day ADL's: Pt. continues to require some assistance with transferring, however he is able to ambulate using his FWW and left knee brace this shift. He does exhibit increased fatigue in the afternoon, and requires staff to push him while sitting on his FWW at intervals. Group attendance: N/A Were meds taken: Yes Any med S/E: None Mental Status Exam Appearance: Hair and clothing disheveled at times, but pt. does change clothes with some needed assistance. He refuses to shower r/t fear of falling, even with assistance provided by staff as needed Eye contact: Good Behavior: Cooperative, pleasant, and guarded when discussing MH s/s Speech: WNL Mood: Pleasant Affect: Blunted with animation Thought process: Circumstantial Thought Content: Some ongoing perseveration on different items and topics Cognition: A&O X3 (not to reason here) Insight: Poor Judgment: Poor Interventions PRN's used: Tylenol and Motrin Therapeutic interventions: Maintained a safe and supportive environment, ensured contract for safety, provided clear and simple instructions, encouraged independent performance of ADLs and provided assistance as needed, encouraged participation on the unit, applied left knee brace and encouraged use, and maintained Q 15min safety checks. Restraints/seclusion/emergency medication: N/A Justification of Continued Inpatient Treatment: Per NACHO Bermudez, pt. continues to be gravely disabled and does not have a safety plan. Discharge will be home with assistance or to a Board and Care/Assisted Living. Addendum: 03/30/21 at 1743 by Brigida Finn RN Pt. had a near fall at the end of the shift. He was walking to the Group Room with use of FWW monitored by [employer] who was providing encouragement. Pt's walker got too far out in front of him and he became unbalanced and was assisted by tech down to a kneeling position on his right knee. Pt. was helped back to a standing position with the assistance of several staff members, and was able to finish ambulating to the Group Room independently. No injuries were obtained and pt. denies any pain. He did request his BS to be checked and was WNL, will continue to monitor.
[2021-03-30 19:52] VITALS: BP 114/59
[2021-03-30] MEDS: primidone 50mg tablet PO SCH (20:21)
[2021-03-30] MEDS: carbidopa/levodopa 50/200mg CR tablet PO SCH (20:22)
[2021-03-30] MEDS: traZODone 50mg tablet PO SCH (20:22)
[2021-03-30] MEDS: aripiprazole 5mg tablet PO SCH (20:28)
--- NOTE | 2021-03-31 01:56 | NUR ---
Nursing Progress Note: Legal hold: Voluntary Client on voluntary status for GD Report received from nurse with use of SBAR: Cesario RN Why are they here: Pt is placed on a 5150 for GD. Pt believes he is here on a police protection from the [employer]. Pt has a hx of bipolar. Pt is easily agitated and aggressive towards staff in the ED. Pt is on abx for cellulites to Lower extremity. Assessment What has happened this shift: Pt up in room ambulating with FWW at start of shift. Pt requested assist to get up out of bed because he said the bed is too low. Pt has multiple requests and C/O. Refused Abilify It makes me drool also became angry about Sinemet dose. Encouraged to talk with MD about meds. Pt went from verbalizing anger to verbalizing gratitude for Ice bag. That is the best ice bag I have ever had Pt was vague in his answers about MH s/s. Talked to pt about him saying people were out to get him when he came to ER. When asked if he still felt that way he said in a joking way It wouldnt matter I couldnt run away on this leg S/I, H/I: Denies A/VH: Denies, does not appear internally preoccupied Sleep: Asleep at this time ADL's: Pt. continues to require some assistance with transferring, however he is able to ambulate to BR using his FWW and left knee brace.. He stayed in his room this shift Group attendance: N/A Were meds taken: Yes refused Abilify Any med S/E: None Mental Status Exam Appearance: Hair and clothing disheveled at times, but pt. does change clothes with some needed assistance. He refuses to shower r/t fear of falling, even with assistance provided by staff as needed Eye contact: Good Behavior: Cooperative, pleasant, then angry. Guarded when discussing MH s/s Speech: WNL Mood: Pleasant Affect: Blunted with animation Thought process: Circumstantial Thought Content: Some ongoing perseveration on different items and topics Cognition: A&O X3 (not to reason here) Insight: Poor Judgment: Poor Interventions PRN's used: Tylenol Therapeutic interventions: Maintained a safe and supportive environment, ensured contract for safety, provided clear and simple instructions, encouraged independent performance of ADLs and provided assistance as needed, encouraged participation on the unit, applied left knee brace and encouraged use, and maintained Q 15min safety checks. Restraints/seclusion/emergency medication: N/A Justification of Continued Inpatient Treatment: Per NACHO Bermudez, pt. continues to be gravely disabled and does not have a safety plan. Discharge will be home with assistance or to a Board and Care/Assisted Living.
[2021-03-31 07:28] VITALS: BP 122/54
[2021-03-31] MEDS: atorvastatin 10mg tablet PO SCH (07:29)
[2021-03-31] MEDS: gabapentin 300mg capsule PO SCH ×3 (07:29→20:08)
[2021-03-31] MEDS: metFORMIN 500mg tablet PO SCH ×2 (07:29→20:07)
[2021-03-31] MEDS: lisinopril 5mg tablet PO SCH (07:29)
[2021-03-31] MEDS: carVEDilol 12.5mg tablet PO SCH ×2 (07:29→20:07)
[2021-03-31] MEDS: aspirin 325mg tablet PO SCH (07:29)
--- NOTE | 2021-03-31 13:38 | NUR ---
Nursing Progress Note: MAN Legal hold: Voluntary Client on voluntary status for GD Report received from YAAKOV Castillo with use of SBAR. Why are they here: Pt is placed on a 5150 for gravely disabled. Pt believes he is here on a police protection from the [employer]. Pt has a hx of bipolar. Pt is easily agitated and aggressive towards staff in the ED. Pt is on antibiotics for cellulites to lower extremity. Assessment What has happened this shift: Received patient sitting up in his chair at shift change. Pt was pleasant and cooperative with care and medications. Pt asked for assistance to apply his knee brace and then requested to be pushed to group room for breakfast. Pt was encouraged to push himself as commercial insurance underwriter stood by for assist if needed. Pt was able to get himself safely to breakfast. Pt was independent with all ADLs today. Pts goal is to go home with help. Pt remained in his room most of the morning, but was up in the afternoon watching T.V. No delusional comments made. PRN medication administered with effect for chronic left knee pain. S/I, H/I: Pt denies both. A/VH: Pt denies both. Sleep: 5.0 hours per sleep assessment. Intermittent naps during day. ADL's: Pt was independent with transfers and ambulating. Moderated hand tremors noted r/t Parkinsons. Pt uses FWW intermittently ambulating to sitting. Group attendance: Declined. Were meds taken: Yes, without issue. Any med S/E: None reported or observed. Mental Status Exam Appearance: Hair and clothing disheveled at times, but pt. does change clothes with some needed assistance. He refuses to shower r/t fear of falling, even with assistance provided by staff as needed Eye contact: Good Behavior: Cooperative, pleasant, and guarded when discussing MH s/s Speech: Clear, normal rate/rhythm. Mood: Pleasant Affect: Blunted with brightening. Thought process: Circumstantial Thought Content: Some ongoing perseveration on different items and topics Cognition: A&O X3 (not to reason here) Insight: Poor Judgment: Poor Interventions PRN's used: None Therapeutic interventions: Maintained a safe and supportive environment, ensured contract for safety, provided clear and simple instructions, encouraged independent performance of ADLs and provided assistance as needed, encouraged participation on the unit, applied left knee brace and encouraged use, and maintained Q 15min safety checks. Restraints/seclusion/emergency medication: N/A Justification of Continued Inpatient Treatment: Patient does not have a good safety plan for discharge at this time. Medications are still being titrated to an effective dose while maintaining a therapeutic environment to prevent decompensation and readmission. Patient is unable to formulate a plan to safely meet their basic needs of food, clothing, and penitentiary due to the severity of their mental illness. Addendum: 03/31/21 at 1713 by Winter Merrill RN Pt c/o left knee pain 04/06. Motrin administered. Encouraged pt to elevated let while sitting. Will continue to monitor. Addendum: 03/31/21 at 1829 by Winter Merrill RN Per Dr. Gant : Pt to continue HS Sinemet dose of 50/200mg and will add Sinemet 25/100 TID. Changes made in eMAR.
--- NOTE | 2021-03-31 14:30 | NUR ---
Pt. attended group today. Todays group was about the difference between Growth Mindset vs. Fixed Mindset. We learned about the differences and then discussed what aspect of developing a growth mindset they wanted to work on. Pt. engaged in the group well. He listened and answered questions appropriately when asked. He did not do the written activity as he reported he cannot write due to the tremor in his hand. He shared that he feels he would like to work on starting new habits to attempt to stop using marijuana. He feels he needs to stop smoking because if he moves to an independent living facility he will not be able to smoke there. He also reported he would like to seek people's approval less and just focus on what he needs to get down instead of worrying about what others are thinking. He was alert and oriented X 4. His thought content and thought process is WNL. While speaking to him privately after group he continues to endorse the thought that there is a [place] mafia and cartel activity around him. He does not appear to believe that they are looking for him at this time but did recount the night before he came to the hospital that he was in a motel and he feared for his safety. He reported he was in the hotel because the electricity in his house was out. He believes that has been fixed now. His general demeanor was calm and compliant. Violet Waddell LCSW
[2021-03-31] MEDS: acetaminophen 325mg tablet PO PRN (14:36)
[2021-03-31] MEDS: ibuprofen 200mg tablet PO PRN (17:09)
[2021-03-31] MEDS: primidone 50mg tablet PO SCH (20:07)
[2021-03-31] MEDS: traZODone 50mg tablet PO SCH (20:07)
[2021-03-31] MEDS: carbidopa/levodopa 50/200mg CR tablet PO SCH (20:08)
[2021-03-31 20:39] VITALS: BP 134/71
[2021-03-31] MEDS: aripiprazole 5mg tablet PO SCH (21:00)
--- NOTE | 2021-03-31 23:27 | NUR ---
Nursing Progress Note: Legal hold: Voluntary Client on voluntary status for GD Report received from JOSSIE Powell with use of SBAR: Why are they here: Pt is placed on a 5150 for GD. Pt believes he is here on a police protection from the [place]. Pt has a hx of bipolar. Pt is easily agitated and aggressive towards staff in the ED. Pt is on abx for cellulites to Lower extremity. Assessment What has happened this shift: The patient was finishing dinner meal when encountered in the group room. He was happy to stay there and watch football until snack time. Patient was cooperative, friendly, and polite as he talked about his team. Patient is groomed nicely and clothes appear clean. He again refused Abilify due to his concerns about side effects. Reminded to speak to MD about it. The patient did not request help or make any complaints tonight. He continues to deny all mental health symptoms and did not make any delusional statements. S/I, H/I: Denies A/VH: Denies Sleep: See sleep assessments ADL's: Mostly independent, occasionally requests assist with his brace or help transferring. Group attendance: N/A Were meds taken: Yes, refused Abilify Any med S/E: C/O drooling from Abilify Mental Status Exam Appearance: Patient well-groomed tonight, and his clothes appear clean Eye contact: Good Behavior: Cooperative, pleasant, guarded Speech: WNL Mood: Pleasant Affect: Blunted with animation Thought process: Circumstantial Thought Content: Some ongoing perseveration on different items and topics Cognition: A&O X3 (not to reason here) Insight: Poor Judgment: Poor Interventions PRN's used: Therapeutic interventions: Maintained a safe and supportive environment, ensured contract for safety, provided clear and simple instructions, encouraged independent performance of ADLs and provided assistance as needed, encouraged participation on the unit, applied left knee brace and encouraged use, and maintained Q 15min safety checks. Restraints/seclusion/emergency medication: N/A Justification of Continued Inpatient Treatment: NACHO Moser, pt. continues to be gravely disabled and does not have a safety plan. Discharge will be home with assistance or to a Board and Care/Assisted Living.
[2021-04-01 08:00] VITALS: BP 129/60
[2021-04-01] MEDS: metFORMIN 500mg tablet PO SCH (08:04)
[2021-04-01] MEDS: atorvastatin 10mg tablet PO SCH (08:04)
[2021-04-01] MEDS: aspirin 325mg tablet PO SCH (08:04)
[2021-04-01] MEDS: carbidoba-levodopa 25-100mg tablet PO SCH ×2 (08:04→12:34)
[2021-04-01] MEDS: gabapentin 300mg capsule PO SCH ×2 (08:04→12:34)
[2021-04-01] MEDS: carVEDilol 12.5mg tablet PO SCH (08:04)
[2021-04-01 08:05] VITALS: BP_SYST 129
[2021-04-01] MEDS: lisinopril 5mg tablet PO SCH (08:05)
--- NOTE | 2021-04-01 10:27 | NUR ---
Reassessment: Pt now on a heart healthy CHO controlled diet and eating well with mostly 100% PO intake. D/w RN recommendation for diet liberalization to just CHO controlled given current lipid panel with physician approval. LB 03/30. Will continue to follow. Recommendations: 1. Consider liberalizing to carb controlled diet given lipid panel and 03/14 serum Na 129 2. Routine bowel care 4. Weekly scaled wts Addendum: 04/01/21 at [address] Amended: Links added.
[2021-04-01] MEDS: acetaminophen 325mg tablet PO PRN (12:37)
--- NOTE | 2021-04-01 13:21 | NUR ---
Pt. attended group today. The topic today was Preventing a Mental Health Relapse by identifying the triggers, signs and symptoms of an upcoming episode/event so that Pts. can learn to apply coping skills before they get to a bad place with their symptoms. Pt was in an upbeat mood with a full range of affect. 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 He filled out his Relapse Prevention Plan and shared it with the group appropriately. He could identify his warning signs and triggers well, and knew what he needed to do to cope. He reported that he doesn't have many supports and stated, "I have on my own so long I don't need people, I like to do things for myself". He was alert and oriented X 4. His thought content and thought process was WNL. Violet Waddell LCSW
[2021-04-01] MEDS ORDERED: CARB1TAB36 PO (14:00)
[2021-04-01] MEDS ORDERED: gabapentin capsule PO (14:00)
[2021-04-01] MEDS ORDERED: TRAZ-251 PO (14:00)
--- NOTE | 2021-04-01 14:12 | NUR ---
Pt did not want to have pictures taken. Addendum: 04/01/21 at 1414 by Lloyd Jade RN Amended: Links added.
[2021-04-01] MEDS: ibuprofen 200mg tablet PO PRN (15:14)
--- NOTE | 2021-04-01 16:13 | NUR ---
Nursing Discharge Note: Pt discharged from [facility] at 1540 to take a cab back home. Cab arranged by [facility]. Pt in euthymic mood with congruent affect and denies SI/HI. Pt has been improving since admission and was in no acute physical or emotional distress. Pt valuables inventoried and returned to him and Pt did not want nicotine replacement, and understands discharge instructions.
== END 2021-04-01 17:00 | disposition home or self-care (01) | DRG 885 ==
LOC: ER 12:39 → ADULT MH 03-22 11:15
PROVIDERS: ADMIT Internal Medicine Interventional Cardiology; ATTEND Internal Medicine Interventional Cardiology
PROC: 3E0234Z Introduction of Serum, Toxoid and Vaccine into Muscle, Percutaneous Approach (ICD-10-PCS; principal; 2021-03-22)
PROC: BW281ZZ Computerized Tomography (CT Scan) of Head using Low Osmolar Contrast (ICD-10-PCS; 2021-03-25)
DX: F31.0 Bipolar disorder, current episode hypomanic (principal); L03.116 Cellulitis of left lower limb; F22 Delusional disorders; I10 Essential (primary) hypertension; E11.9 Type 2 diabetes mellitus without complications; D64.9 Anemia, unspecified; M54.9 Dorsalgia, unspecified; G25.2 Other specified forms of tremor; F12.10 Cannabis abuse, uncomplicated; I25.10 Atherosclerotic heart disease of native coronary artery without angina pectoris; E66.3 Overweight; E78.5 Hyperlipidemia, unspecified; M25.569 Pain in unspecified knee; G20 Parkinson's disease; G89.29 Other chronic pain; Z86.73 Personal history of transient ischemic attack (TIA), and cerebral infarction without residual deficits; Z86.711 Personal history of pulmonary embolism; Z79.899 Other long term (current) drug therapy; Z23 Encounter for immunization; Z88.5 Allergy status to narcotic agent; Z88.8 Allergy status to other drugs, medicaments and biological substances; Z68.28 Body mass index [BMI] 28.0-28.9, adult
CPT/HCPCS: 36415; 70470; 80053; 80061; 80305; 80320; 81003; 82948; 83036; 84443; 85025; 87081; 87635; 90471; 90732; 96372; 99285; C9803; Q0163; Q9967

== ENCOUNTER 2021-08-27 12:27 | Inpatient (IN) | payer MEDICARE ==
[~2021-08-27] VITALS: Ht 177.8 cm; Wt 91.4 kg
[~2021-08-27 12:27] MED LIST changes: -ASPI-1264 PO; +ASPI-845 PO; +CARB1TAB24 PO; +CARB1TAB42 PO; +CARV-50 PO; -CARV6.253 PO; -CLIN-97 PO; +DOCU100C40 PO; -DULO60CA65 PO; +FAMO-128 PO; +GABA-530 PO; +HYDR-3972 PO; -LACT1CAP60 PO; -LISI-790 PO; +LISI5TAB22 PO; -LURA20TA PO; +METF-436 PO; -METF500T PO; +MULT-1085 PO; +ONDA-103 PO; +POLY17PO10 PO; +PRIM250T32 PO; -PRIM50TA27 PO; +PSYL0.4C2 PO; +QUET200T31 PO; -TRAZ-256 PO
[2021-08-27] MEDS ORDERED: famotidine/PF 10 mg/ml inj IV ONE (12:35)
[2021-08-27] MEDS ORDERED: normal saline 1000ML IV soln IV ONE (12:35)
[2021-08-27] MEDS ORDERED: ondansetron/PF 4mg/2ml inj IV ONE (12:35)
--- NOTE | 2021-08-27 12:42 | NUR ---
POISON CONTROL WILL DO MANDITORY PESTICIDE REPORT
[2021-08-27] MEDS ORDERED: metoclopramide 5 mg/ml inj IV ONE (13:20)
[2021-08-27 13:23] LABS: BASOPHILS % (AUTO) 0.6 % (0-1); EOSINOPHILS # (AUTO) 0.2 X10'3 (0-0.9); HEMATOCRIT 46.3 % (42.0-52.0); HEMOGLOBIN 15.2 g/dl (14.0-17.9); LYMPHOCYTES # (AUTO) 1.1 X10'3 (1.1-4.8); LYMPHOCYTES % (AUTO) 17.4 % (21-51); MEAN CORPUSCULAR HEMOGLOBIN 25.8 PG (27.0-31.0); MEAN CORPUSCULAR HGB CONC 32.8 g/dL (33.0-36.5); MEAN CORPUSCULAR VOLUME 78.8 FL (78-98); MEAN PLATELET VOLUME 9.2 FL (7.4-10.4); MONOCYTES # (AUTO) 0.5 X10'3 (0-0.9); NEUTROPHILS # (AUTO) 4.2 X10'3 (1.8-7.7); PLATELET COUNT 223 X10'3 (140-440); RED BLOOD COUNT 5.88 X10'6 (4.70-6.10); RED CELL DISTRIBUTION WIDTH 15.3 % (11.5-14.5); WHITE BLOOD COUNT 6.1 X10'3 (4.5-11.0)
[2021-08-27 13:36] LABS: ALANINE AMINOTRANSFERASE 23 U/L (12-78); ALBUMIN 4.4 G/DL (3.4-5.0); ALBUMIN/GLOBULIN RATIO 1.3 (1.1-1.5); ALKALINE PHOSPHATASE 107 IU/L (46-116); ANION GAP 8 (8-16); ASPARTATE AMINO TRANSFERASE 40 U/L (10-37); BILIRUBIN,TOTAL 0.3 MG/DL (0.1-1.0); BLOOD UREA NITROGEN 13 MG/DL (7-18); BUN/CREATININE RATIO 18.8 (5.4-32.0); CALCIUM 9.4 MG/DL (8.5-10.1); CHLORIDE 101 MMOL/L (99-107); CREATININE 0.69 MG/DL (0.60-1.10); GLUCOSE 135 MG/DL (70-104); POTASSIUM 5.1 MMOL/L (3.5-5.1); SODIUM 134 MMOL/L (135-145); TOTAL CARBON DIOXIDE 25.1 MMOL/L (24-32); TOTAL PROTEIN 7.9 G/DL (6.4-8.2); eGFR > 90 ML/MIN
[2021-08-27 13:56] LABS: ACETAMINOPHEN < 2.0 UG/ML (10-30); ETHANOL < 0.010 GM/DL (0.0-0.010)
[2021-08-27] MEDS ORDERED: sucralfate 1gm/10ml UD suspension PO STA (14:19)
[2021-08-27] MEDS ORDERED: dexamethasone sod phosphate 10mg/ml inj IV STA (14:19)
[2021-08-27] MEDS ORDERED: mag hydrox/Alum hydrox/simeth 30ml oral suspension PO ONE ×2 (14:20→19:55)
[2021-08-27] MEDS ORDERED: LIDOcaine Viscous 15ml cup MM ONE (14:20)
[2021-08-27 16:02] LABS: ACETAMINOPHEN < 2.0 UG/ML (10-30)
--- NOTE | 2021-08-27 19:22 | NUR ---
PATIENT RECEIVED ON THE UNIT IN NO OBVIOUS DISTRESS. NO PHYSICAL COMPLAINT MADE. PATIENT IS BREATHING SPONTANOUSLY ON ROOM AIR. PATIENT DENIES HAVING ANY SUICIDAL IDEATION AT THIS TIME, HE ALSO STATES THAT HE IS SORRY THAT HE DID MADE AN ATTEMPTED, HE ALSO STATES THAT HE DONT KNOW WHY HE DID IT. OBSERVATION ONGOING
[2021-08-27] MEDS ORDERED: ondansetron 4mg rapidly disintigrating tab PO ONE (19:55)
--- NOTE | 2021-08-27 20:10 | NUR ---
PATIENT COMPLAINT OF HAVING ABDOMINAL PAIN. ZOFRAN 4 MG PO AND MAALOX 30 ML PO GIVEN
[2021-08-27 20:32] LABS: URINE AMPHETAMINE SCREEN NEGATIVE (Neg); URINE BARBITUATE SCREEN POSITIVE (Neg); URINE BENZODIAZEPINES SCREEN NEGATIVE (Neg); URINE CANNABINOID SCREEN NEGATIVE (Neg); URINE COCAINE SCREEN NEGATIVE (Neg); URINE METHADONE SCREEN NEGATIVE (Neg); URINE OPIATE SCREEN NEGATIVE (Neg); URINE PHENCYCLIDINE SCREEN NEGATIVE (Neg)
[2021-08-27 20:34] LABS: CLARITY,URINE CLEAR (Clear); COLOR,URINE YELLOW (Yellow); GLUCOSE, URINE 250 mg/dl (Neg); KETONES,URINE TRACE mg/dl (Neg); LEUKOCYTE ESTERASE ,URINE NEGATIVE (Neg); NITRITES, URINE NEGATIVE (Neg); OCCULT BLOOD,URINE NEGATIVE (Neg); PH,URINE 5.5 (4.8-8.0); PROTEIN,URINE NEGATIVE (Neg); UROBILINOGEN,URINE 0.2 E.U/dL (0.2-1.0)
[2021-08-27 20:39] LABS: UA COLLECTION TYPE NON-SPECIFIED
--- NOTE | 2021-08-28 01:25 | NUR ---
PATIENT ASLEEP BUT EASILY AROUSE. NO OBVIOUS DISTRESS NOTED.
--- NOTE | 2021-08-28 04:06 | NUR ---
PATIENT ASLEEP IN NO OBVIOUS DISTRESS. OBSERVATION ONGOING.
[2021-08-28] MEDS ORDERED: mag hydrox/Alum hydrox/simeth 30ml oral suspension PO ONE ×2 (05:35→10:45)
--- NOTE | 2021-08-28 06:00 | NUR ---
PT. CARE ASSUMED FROM OFF GOING NURSE POOJA SETHI. PT. RESTING QUIETLY WITH EYES CLOSED NO DISTRESS NOTED. STAFF WILL CONTINUE TO MONITOR FOR SAFETY.
--- NOTE | 2021-08-28 06:01 | NUR ---
PATIENT COMPLAINT OF HAVING ABDOMINAL PAIN, MAALOX 30 ML GIVEN PO.
--- NOTE | 2021-08-28 06:03 | NUR ---
PATIENT LEFT LYING IN BED IN NO OBVIOUS DISTRESS. OBSERVATION ONGOING.
--- NOTE | 2021-08-28 07:30 | NUR ---
PT. WITH C/O ABDOMINAL DISCOMFORT. DR. AMAYA NOTIFIED. AWAITNG MEDICATION ORDERS.
[2021-08-28] MEDS ORDERED: RASA1TAB PO (08:23)
--- NOTE | 2021-08-28 08:30 | NUR ---
PT. MORNING ASSESSMENT COMPLETED. PT. STATES HE HASN'T RECEIVED ANY OF HIS HOME MEDICATIONS. THIS FOOT GATHERER NOTICED MEDICATION RECONCILIATION WASN'T COMPLETED. PT. WAS ABLE TO CONFIRM MEDICATION FROM MED. LIST BROUGHT WITH HIM FROM HOME. MEDICATION RECILIATION COMPLETED. ROSA GIVE TO DR. AMAYA FOR REVIEW.
[2021-08-28] MEDS ORDERED: QUET200T PO (09:54)
[2021-08-28] MEDS: RASAGILINE MESYLATE 1 MG PO SCH (09:58)
[2021-08-28] MEDS ORDERED: famotidine 20mg tablet PO ONE (10:30)
[2021-08-28] MEDS ORDERED: LIDOcaine Viscous 15ml cup MM ONE (10:45)
[2021-08-28] MEDS ORDERED: sucralfate 1 gm tablet PO ONE (10:45)
[2021-08-28] MEDS: carbidoba-levodopa 25-100mg tablet PO SCH ×3 (10:45→20:29)
[2021-08-28] MEDS: metFORMIN 500mg tablet PO SCH ×2 (10:45→20:30)
[2021-08-28] MEDS: ondansetron 4mg rapidly disintigrating tab PO PRN (10:46)
[2021-08-28] MEDS: gabapentin 100mg capsule PO SCH ×3 (10:46→20:29)
[2021-08-28] MEDS: atorvastatin 10mg tablet PO SCH (10:46)
[2021-08-28] MEDS: carVEDilol 12.5mg tablet PO SCH ×2 (10:48→20:30)
[2021-08-28] MEDS: lisinopril 5mg tablet PO SCH ×2 (10:48→20:30)
[2021-08-28] MEDS: pantoprazole 40mg Tablet.DR PO SCH (11:10)
--- NOTE | 2021-08-28 16:09 | NUR ---
Assumed care of patient laying on right side resting. Patient up to the bathroom and back to bed. Patient walks with a FWW.
[2021-08-28] MEDS: famotidine 20mg tablet PO SCH (17:20)
--- NOTE | 2021-08-28 19:32 | NUR ---
RECEIVED REPORT FROM RN AND PATIENT IS BED RESTING.
[2021-08-28] MEDS: quetiapine 100mg tablet PO SCH (20:29)
[2021-08-28] MEDS: carbidopa/levodopa 50/200mg CR tablet PO SCH (20:30)
[2021-08-28] MEDS: primidone 250mg tablet PO SCH (20:55)
--- NOTE | 2021-08-29 02:09 | NUR ---
Patient resting with no sign of discomfort. Up to the toilet
--- NOTE | 2021-08-29 04:35 | NUR ---
PATIENT RESTING WITH NO SIGN OF DISCOMFORT.
--- NOTE | 2021-08-29 06:01 | NUR ---
PATIENT DENIES HAVING ANY ABDOMINAL DISCOMFORT AND HE TOOK ALL HIS NIGHT MEDS. PATIENT RESTING AND WILL CONTINUE TO MONITOR.
[2021-08-29] MEDS: famotidine 20mg tablet PO SCH ×2 (07:15→17:37)
[2021-08-29] MEDS: RASAGILINE MESYLATE 1 MG PO SCH (08:00)
[2021-08-29] MEDS: pantoprazole 40mg Tablet.DR PO SCH (08:02)
[2021-08-29] MEDS: gabapentin 100mg capsule PO SCH ×3 (08:04→20:45)
[2021-08-29] MEDS: carbidoba-levodopa 25-100mg tablet PO SCH ×3 (08:04→20:46)
[2021-08-29] MEDS: metFORMIN 500mg tablet PO SCH ×2 (08:04→20:43)
[2021-08-29] MEDS: multivitamins, therapeutics tablet PO SCH (08:04)
[2021-08-29] MEDS: atorvastatin 10mg tablet PO SCH (08:04)
--- NOTE | 2021-08-29 08:30 | NUR ---
Pt. awake and eating breakfast at bedside. Pt. took all medications.
[2021-08-29] MEDS: lisinopril 5mg tablet PO SCH ×2 (08:38→20:45)
[2021-08-29] MEDS: carVEDilol 12.5mg tablet PO SCH ×2 (08:38→20:42)
[2021-08-29] MEDS: aspirin 325mg tablet, delayed-release (Ecotrin) PO SCH (08:38)
[2021-08-29] MEDS: ondansetron 4mg rapidly disintigrating tab PO PRN ×2 (08:48→19:04)
--- NOTE | 2021-08-29 10:30 | NUR ---
1:1 done at bedside. Pt. denies all psych symptoms. Pt. stating he would like to go upstairs to [facility] if there is a medical bed available.
[2021-08-29] MEDS: docusate sod 100mg capsule PO PRN ×2 (12:14→20:47)
--- NOTE | 2021-08-29 12:14 | NUR ---
Pt. c/o and given prn colace 200mg.
--- NOTE | 2021-08-29 12:30 | NUR ---
Pt. calm and resting in bed in supine position.
--- NOTE | 2021-08-29 12:30 | NUR ---
Pt. pacing back and forth with walker. Pt. reports he is just getting exercise.
[2021-08-29] MEDS: lactose-reduced food (Ensure High Protein) 237ml bottle PO SCH ×3 (13:00→19:15)
--- NOTE | 2021-08-29 14:30 | NUR ---
Pt. resting in bed and awake. Pt. in no apparent distress.
[2021-08-29] MEDS ORDERED: magnesium hydroxide 30ml (MOM) UD suspension PO ONE (15:40)
--- NOTE | 2021-08-29 15:44 | NUR ---
Pt. continues to c/o of constipation and RN one time order for milk of magnesia.
--- NOTE | 2021-08-29 20:24 | NUR ---
Received patient at 1820. Patient was observed laying in bed sleeping. Patient got up and ate dinner before being assisted to the bathroom. Patient was asssisted back into bed and ky zurita requested prn zofran for nausea. Patient continues to complain of constipation and abdominal pain. Patient has sounds in all 4 quadrents and will be given prn colace at 2030 medpass.
[2021-08-29] MEDS: primidone 250mg tablet PO SCH (20:45)
[2021-08-29] MEDS: quetiapine 100mg tablet PO SCH (20:46)
[2021-08-29] MEDS: carbidopa/levodopa 50/200mg CR tablet PO SCH (20:46)
--- NOTE | 2021-08-29 22:31 | NUR ---
Patient observed sleeping, patient assisted to the restroom and back to bed.
--- NOTE | 2021-08-30 00:29 | NUR ---
Patient continues to rest quietly no issues at this time.
--- NOTE | 2021-08-30 02:41 | NUR ---
Patient is observed sleeping quietly
--- NOTE | 2021-08-30 04:47 | NUR ---
Patient is still sleeping. Patient has not gotten up since going to sleep.
[2021-08-30] MEDS: pantoprazole 40mg Tablet.DR PO SCH (07:32)
[2021-08-30] MEDS: famotidine 20mg tablet PO SCH ×2 (07:32→18:02)
--- NOTE | 2021-08-30 07:40 | NUR ---
Pt given medications prior to breakfast. Pt c/o "this place is too cold, you know it is miserable here." He then ask if his 5150 is up today. Pt told the hold is up tomorrow at 0953. Pt appears depressed. He reports not knowing why he is depressed and continues to make suicide attempts. Pt reports he has pain and that Tylenol helps. He says he uses less while here since all he does is lay in bed and is not having to use his muscles.
[2021-08-30] MEDS: RASAGILINE MESYLATE 1 MG PO SCH (08:00)
[2021-08-30] MEDS: atorvastatin 10mg tablet PO SCH (08:47)
[2021-08-30] MEDS: multivitamins, therapeutics tablet PO SCH (08:47)
[2021-08-30] MEDS: carVEDilol 12.5mg tablet PO SCH ×2 (08:47→20:24)
[2021-08-30] MEDS: docusate sod 100mg capsule PO PRN (08:48)
[2021-08-30] MEDS: lisinopril 5mg tablet PO SCH ×2 (08:48→20:22)
[2021-08-30] MEDS: gabapentin 100mg capsule PO SCH ×3 (08:48→20:24)
[2021-08-30] MEDS: metFORMIN 500mg tablet PO SCH ×2 (08:55→20:24)
[2021-08-30] MEDS: aspirin 325mg tablet, delayed-release (Ecotrin) PO SCH (08:55)
[2021-08-30] MEDS: carbidoba-levodopa 25-100mg tablet PO SCH ×3 (08:55→20:23)
--- NOTE | 2021-08-30 09:50 | NUR ---
Pt is resting on his bed. He continues to talk about discharge. Education provided on the procedure. But pt needs constant reminders and education. Pt is medicaiton compliant. PRN Zofran given with good effectiveness. He appears depressed with a flat affect.
[2021-08-30] MEDS: ondansetron 4mg rapidly disintigrating tab PO PRN (10:09)
--- NOTE | 2021-08-30 11:14 | NUR ---
Pt was up using FWW. He walked back and forth for exercise about 3 times then went back to bed to "rest."
[2021-08-30] MEDS ORDERED: magnesium hydroxide 30ml (MOM) UD suspension PO ONE (12:20)
--- NOTE | 2021-08-30 12:50 | NUR ---
Pt up for lunch and his medicatons. MOM administered. Pt c/o his feet hurting and are "red." Assessed pt's feet. Elevated feet for comfort. Pt is now resting back on his bed.
[2021-08-30] MEDS: lactose-reduced food (Ensure High Protein) 237ml bottle PO SCH ×2 (13:00→18:03)
--- NOTE | 2021-08-30 15:55 | NUR ---
ADMIT NOTE Pt admitted to [facility] at 1555, escorted in a wheelchair by PCT and security. 5150 written for DTS: Hunter ingested over 2 cups of bleach and 8 Tylenol. He reported that he was trying to kill himself because he's tired of being sick. He reported that he does not feel safe to return home and his son feels he cannot keep him safe. Pt was recently discharged from [facility] on 08/20. Dx of Bipolar Disorder. He reportedly has attempted suicide several times in the past month. He reports that he does not feel safe to return home and his children feel they cannot keep him safe.
[2021-08-30] MEDS ORDERED: loperamide 2mg capsule PO PRN (16:10)
[2021-08-30] MEDS ORDERED: acetaminophen 325mg tablet PO PRN ×2 (16:10)
[2021-08-30 20:00] VITALS: BP 131/59
[2021-08-30] MEDS: primidone 250mg tablet PO SCH (20:23)
[2021-08-30] MEDS: quetiapine 100mg tablet PO SCH (20:23)
[2021-08-30] MEDS: carbidopa/levodopa 50/200mg CR tablet PO SCH (20:24)
--- NOTE | 2021-08-30 23:51 | NUR ---
Nursing Progress Note: Legal hold: 5150 Client on involuntary status for GD Report received from JOSSIE Sneed with use of SBAR. ADMIT NOTE Pt admitted to [facility] at 1555, escorted in a wheelchair by PCT and security. 5150 written for DTS: Hunter ingested over 2 cups of bleach and 8 Tylenol. He reported that he was trying to kill himself because he's tired of being sick. He reported that he does not feel safe to return home and his son feels he cannot keep him safe. Pt was recently discharged from [facility] on 08/20. Dx of Bipolar Disorder. He reportedly has attempted suicide several times in the past month. He reports that he does not feel safe to return home and his children feel they cannot keep him safe. Assessment What has happened this shift: Patient is observed following shift change ambulating with the use of a walker. His primarily isolating in his room. The patient is well oriented. The patient exhibits a disheveled look, he has a pale color, he is warm and dry. 1:1 Interview in patients room. Patient has a flat affect and looks tired. He admits to depression, he denies S/I, H/I, or any hallucinations at this time. The patient describes a recent suicide attempt, he remembers calling his son who arrived at his house and administered a couple of glasses of milk to dilute the bleach that the patient had drank. This patient complains of feeling tired, he describes recent weight loss secondary to a decreased appetite. Patient states generalized back pain that is somewhat improved following a lumbar fusion and laminectomy. The patient reports a loose BM tonight. He is medication compliant and cooperative. S/I, H/I: Denies. A/VH: Denies. Sleep: Will tally at 0500 hours. ADL's: Independent. Group attendance: No group on nights. Were meds taken: Yes, patient is medication compliant. Any med S/E: None observed or reported. Mental Status Exam Appearance: Disheveled looking male wearing unit attire. Eye contact: Fair. Behavior: Quiet and isolative. Speech: Quiet but clear speech. Mood: Depressed. Affect: Congruent with mood. Thought process: Linear, circumstantial. Thought Content: Wants to discharge Cognition: Alert and oriented X4. Insight: Fair. Judgment: Fair. Interventions PRN's used: None. Therapeutic interventions: Maintained a safe and supportive environment, ensured contract for safety, provided clear and simple instructions, provided direction and encouragement regarding performance of ADLs, and maintained Q15 minute safety checks. Restraints/seclusion/emergency medication: Justification of Continued Inpatient Treatment: Requires interruption of current crisis in a safe and therapeutic environment.
[2021-08-31] MEDS: gabapentin 100mg capsule PO SCH ×3 (07:53→20:02)
[2021-08-31] MEDS: multivitamins, therapeutics tablet PO SCH (07:53)
[2021-08-31] MEDS: metFORMIN 500mg tablet PO SCH ×2 (07:53→20:03)
[2021-08-31] MEDS: aspirin 325mg tablet, delayed-release (Ecotrin) PO SCH (07:53)
[2021-08-31] MEDS: pantoprazole 40mg Tablet.DR PO SCH (07:53)
[2021-08-31] MEDS: famotidine 20mg tablet PO SCH ×2 (07:54→17:42)
[2021-08-31] MEDS: atorvastatin 10mg tablet PO SCH (07:54)
[2021-08-31] MEDS: carbidoba-levodopa 25-100mg tablet PO SCH ×3 (07:54→20:03)
[2021-08-31] MEDS: docusate sod 100mg capsule PO PRN ×2 (07:54→20:02)
[2021-08-31] MEDS: lisinopril 5mg tablet PO SCH ×2 (07:58→20:08)
[2021-08-31] MEDS: carVEDilol 12.5mg tablet PO SCH ×2 (07:58→20:02)
[2021-08-31] MEDS: magnesium hydroxide 30ml (MOM) UD suspension PO PRN (07:59)
[2021-08-31] MEDS: RASAGILINE MESYLATE 1 MG PO SCH (08:00)
[2021-08-31] MEDS: lactose-reduced food (Ensure High Protein) 237ml bottle PO SCH ×3 (08:29→18:00)
[2021-08-31 08:34] VITALS: BP 97/59
[2021-08-31] MEDS: ondansetron 4mg rapidly disintigrating tab PO PRN (09:15)
[2021-08-31 09:18] LABS: CHOL/HDL RATIO 2.2 (0.00-4.99); CHOLESTEROL 110 MG/DL (0-200); HDL CHOLESTEROL 51 MG/DL (35-60); LDL CHOLESTEROL 43 MG/DL (50-100); TRIGLYCERIDES 87 MG/DL (20-135)
[2021-08-31 09:29] LABS: HEMOGLOBIN A1C 6.6 % (4.5-6.2)
--- NOTE | 2021-08-31 15:03 | NUR ---
Nursing Progress Note: Legal hold: 5150 Client on involuntary status for GD Report received from JOSSIE Ricardo with use of SBAR. ADMIT NOTE Pt admitted to [facility] at 1555, escorted in a wheelchair by PCT and security. 5150 written for DTS: Hunter ingested over 2 cups of bleach and 8 Tylenol. He reported that he was trying to kill himself because he's tired of being sick. He reported that he does not feel safe to return home and his son feels he cannot keep him safe. Pt was recently discharged from [facility] on 08/20. Dx of Bipolar Disorder. He reportedly has attempted suicide several times in the past month. He reports that he does not feel safe to return home and his children feel they cannot keep him safe. Assessment What has happened this shift: Received pt up to the dayroom awaiting lunch. Pt requested to shave after lunch and staff assisted shaving. Pt states he feels suicidal when he starts thinking about how he can't be as independent. Pt states he is starting to feel better now that he is here and his desire is to be able to return home. S/I, H/I: Denies. A/VH: Denies. Sleep: brief napping ADL's: Independent. Group attendance: n/a Were meds taken: Yes, patient is medication compliant. Any med S/E: None observed or reported. Mental Status Exam Appearance: Disheveled looking male wearing unit attire. Eye contact: Fair. Behavior: Quiet and isolative. Speech: Quiet but clear speech. Mood: Depressed. Affect: Congruent with mood. Thought process: Linear, circumstantial. Thought Content: Wants to discharge Cognition: Alert and oriented X4. Insight: Fair. Judgment: Fair. Interventions PRN's used: None. Therapeutic interventions: Maintained a safe and supportive environment, ensured contract for safety, provided clear and simple instructions, provided direction and encouragement regarding performance of ADLs, and maintained Q15 minute safety checks. Restraints/seclusion/emergency medication: Justification of Continued Inpatient Treatment: Requires interruption of current crisis in a safe and therapeutic environment.
[2021-08-31 19:56] VITALS: BP 137/60
[2021-08-31] MEDS: quetiapine 100mg tablet PO SCH (20:00)
[2021-08-31] MEDS: ESCITALOPRAM OXALATE 5 MG TABLET PO SCH (20:03)
[2021-08-31] MEDS: primidone 250mg tablet PO SCH (20:04)
[2021-08-31] MEDS: carbidopa/levodopa 50/200mg CR tablet PO SCH (20:04)
--- NOTE | 2021-08-31 22:41 | NUR ---
Nursing Progress Note: Legal hold: 5150 Client on involuntary status for GD Report received from JOSSIE Powell with use of SBAR. Why they are here: Hunter ingested over 2 cups of bleach and 8 Tylenol. He reported that he was trying to kill himself because he's tired of being sick. He reported that he does not feel safe to return home and his son feels he cannot keep him safe. Pt was recently discharged from [facility] on 08/20. Dx of Bipolar Disorder. He reportedly has attempted suicide several times in the past month. He reports that he does not feel safe to return home and his children feel they cannot keep him safe. Assessment What has happened this shift: Pt was in bed at change of shift. Pt is resting. Pt states denies s/i, "I'm feeling safer now that Im here." Pt c/o constipation and requested prn colace. Declined any prune juice and declined having a snack this evening. Pt remains in bed for duration of shift. Took HS meds and went to sleep. S/I, H/I: Denies. A/VH: Denies. Sleep: see sleep hours ADL's: Independent. Group attendance: n/a Were meds taken: Yes, patient is medication compliant. Any med S/E: None observed or reported. Mental Status Exam Appearance: Disheveled looking male wearing unit attire. Eye contact: Fair. Behavior: Quiet and isolates to his room Speech: Quiet but clear speech. Mood: Depressed. Affect: Constricted Thought process: Linear, circumstantial. Thought Content: c/o constipation Cognition: Alert and oriented X4. Insight: Fair. Judgment: Fair. Interventions PRN's used: colace Therapeutic interventions: Maintained a safe and supportive environment, ensured contract for safety, provided clear and simple instructions, provided direction and encouragement regarding performance of ADLs, and maintained Q15 minute safety checks. Restraints/seclusion/emergency medication: Justification of Continued Inpatient Treatment: Requires interruption of current crisis in a safe and therapeutic environment.
[2021-09-01] MEDS: carbidoba-levodopa 25-100mg tablet PO SCH ×3 (07:21→20:13)
[2021-09-01] MEDS: pantoprazole 40mg Tablet.DR PO SCH (07:21)
[2021-09-01] MEDS: gabapentin 100mg capsule PO SCH ×3 (07:21→20:12)
[2021-09-01] MEDS: famotidine 20mg tablet PO SCH ×2 (07:21→17:30)
[2021-09-01] MEDS: aspirin 325mg tablet, delayed-release (Ecotrin) PO SCH (07:21)
[2021-09-01] MEDS: metFORMIN 500mg tablet PO SCH ×2 (07:21→20:12)
[2021-09-01] MEDS: lisinopril 5mg tablet PO SCH ×2 (07:22→20:12)
[2021-09-01] MEDS: atorvastatin 10mg tablet PO SCH (07:22)
[2021-09-01] MEDS: multivitamins, therapeutics tablet PO SCH (07:22)
[2021-09-01] MEDS: carVEDilol 12.5mg tablet PO SCH ×2 (07:22→20:12)
[2021-09-01] MEDS: magnesium hydroxide 30ml (MOM) UD suspension PO PRN ×2 (07:28→20:22)
[2021-09-01] MEDS: docusate sod 100mg capsule PO PRN ×2 (07:28→20:12)
[2021-09-01 07:55] VITALS: BP 121/70
[2021-09-01] MEDS: RASAGILINE MESYLATE 1 MG PO SCH (08:00)
[2021-09-01] MEDS: lactose-reduced food (Ensure High Protein) 237ml bottle PO SCH ×3 (08:05→18:14)
[2021-09-01] MEDS: ondansetron 4mg rapidly disintigrating tab PO PRN (08:35)
--- NOTE | 2021-09-01 14:54 | NUR ---
Pt. attended group today. Today's group was about the different communications styles i.e passive, aggressive and assertive. We discussed what the characteristics of each style was. We then discussed where they saw themselves at now and where they would like to be with their communication style. Pt spoke minimally in group. He sat quietly and listened to this [employer] Orchid and his peers. Violet Waddell LCSW
--- NOTE | 2021-09-01 17:45 | NUR ---
Nursing Progress Note: Legal hold: 5150 Client on involuntary status for GD Report received from JOSSIE Ace with use of SBAR. ADMIT NOTE Pt admitted to [facility] at 1555, escorted in a wheelchair by PCT and security. 5150 written for DTS: Hunter ingested over 2 cups of bleach and 8 Tylenol. He reported that he was trying to kill himself because he's tired of being sick. He reported that he does not feel safe to return home and his son feels he cannot keep him safe. Pt was recently discharged from [facility] on 08/20. Dx of Bipolar Disorder. He reportedly has attempted suicide several times in the past month. He reports that he does not feel safe to return home and his children feel they cannot keep him safe. Assessment What has happened this shift: Patient was asleep at change of shift and up before breakfast. Patient is depressed and feeling suicidal due to his loss of mobility. Patient also c/o constipation. RN gave Colace and M.O.M. and patient had a moderate BM today. Patient was happy. Patient spends a lot of time in his room. Patient did take a shower today. Patient is pleasant but does appear depressed. S/I, H/I: Denies. A/VH: Denies. Sleep: brief napping ADL's: Independent. Group attendance: no Were meds taken: Yes Any med S/E: None observed or reported. Mental Status Exam Appearance: Disheveled looking male wearing unit attire. Eye contact: Fair. Behavior: Isolative Speech: Poverty of speech Mood: Depressed. Affect: Flat Thought process: Linear Thought Content: Wants to get better Cognition: Alert and oriented X4. Insight: Fair. Judgment: Fair. Interventions PRN's used: None. Therapeutic interventions: Maintained a safe and supportive environment, ensured contract for safety, provided clear and simple instructions, provided direction and encouragement regarding performance of ADLs, and maintained Q15 minute safety checks. Restraints/seclusion/emergency medication: Justification of Continued Inpatient Treatment: Requires interruption of current crisis in a safe and therapeutic environment.
[2021-09-01] MEDS: carbidopa/levodopa 50/200mg CR tablet PO SCH (20:12)
[2021-09-01] MEDS: quetiapine 100mg tablet PO SCH (20:13)
[2021-09-01] MEDS: primidone 250mg tablet PO SCH (20:13)
[2021-09-01] MEDS: ESCITALOPRAM OXALATE 5 MG TABLET PO SCH (20:13)
[2021-09-01 20:52] VITALS: BP 139/67
--- NOTE | 2021-09-01 23:22 | NUR ---
Nursing Progress Note: Legal hold: 5150 Client on involuntary status for GD Report received from JOSSIE Powell with use of SBAR. Why is patient here: Hunter ingested over 2 cups of bleach and 8 Tylenol. He reported that he was trying to kill himself because he's tired of being sick. He reported that he does not feel safe to return home and his son feels he cannot keep him safe. Pt was recently discharged from [facility] on 08/20. Dx of Bipolar Disorder. He reportedly has attempted suicide several times in the past month. He reports that he does not feel safe to return home and his children feel they cannot keep him safe. Assessment What has happened this shift: Pt was in bed at change of shift. Although pt had a bm earlier in the day he is still feeling constipated and requests to have colace with HS meds again tonight. Pt reports he feels depressed sometimes but is feeling "ok" at the moment. Pt declined an evening snack, took HS meds. He requested PRN MOM after HS meds states "anything will help". He denies any discomfort but states he just wants to make sure he has another BM tomorrow. Pt isolates to his room. S/I, H/I: Denies. A/VH: Denies. Sleep: see sleep hours ADL's: Independent. Group attendance: no Were meds taken: Yes Any med S/E: None observed or reported. Mental Status Exam Appearance: Adequately groomed and dressed. Eye contact: Fair. Behavior: Isolative Speech: Poverty of speech Mood: Depressed. Affect: Flat Thought process: Linear Thought Content: concerned with avoiding constipation Cognition: Alert and oriented X4. Insight: Fair. Judgment: Fair. Interventions PRN's used: colace, mom. Therapeutic interventions: Maintained a safe and supportive environment, ensured contract for safety, provided clear and simple instructions, provided direction and encouragement regarding performance of ADLs, and maintained Q15 minute safety checks. Restraints/seclusion/emergency medication: Justification of Continued Inpatient Treatment: Requires interruption of current crisis in a safe and therapeutic environment.
[2021-09-02] MEDS: pantoprazole 40mg Tablet.DR PO SCH (07:57)
[2021-09-02] MEDS: aspirin 325mg tablet, delayed-release (Ecotrin) PO SCH (07:57)
[2021-09-02] MEDS: carVEDilol 12.5mg tablet PO SCH ×2 (07:57→20:04)
[2021-09-02] MEDS: lisinopril 5mg tablet PO SCH ×2 (07:57→20:02)
[2021-09-02] MEDS: carbidoba-levodopa 25-100mg tablet PO SCH ×3 (07:57→20:03)
[2021-09-02] MEDS: multivitamins, therapeutics tablet PO SCH (07:58)
[2021-09-02] MEDS: atorvastatin 10mg tablet PO SCH (07:58)
[2021-09-02] MEDS: lactose-reduced food (Ensure High Protein) 237ml bottle PO SCH ×3 (07:58→18:00)
[2021-09-02] MEDS: metFORMIN 500mg tablet PO SCH ×2 (07:58→20:02)
[2021-09-02] MEDS: gabapentin 100mg capsule PO SCH ×3 (07:58→20:03)
[2021-09-02] MEDS: famotidine 20mg tablet PO SCH ×2 (07:58→16:39)
[2021-09-02] MEDS: docusate sod 100mg capsule PO PRN ×2 (07:58→20:03)
[2021-09-02 08:00] VITALS: BP 118/61
[2021-09-02] MEDS: RASAGILINE MESYLATE 1 MG PO SCH (08:00)
[2021-09-02] MEDS: mag hydrox/Alum hydrox/simeth 30ml oral suspension PO PRN ×2 (10:24→16:40)
--- NOTE | 2021-09-02 17:08 | NUR ---
Nursing Progress Note: Legal hold: 5150 Client on involuntary status for GD Report received from JOSSIE Ace with use of SBAR. ADMIT NOTE Pt admitted to [facility] at 1555, escorted in a wheelchair by PCT and security. 5150 written for DTS: Hunter ingested over 2 cups of bleach and 8 Tylenol. He reported that he was trying to kill himself because he's tired of being sick. He reported that he does not feel safe to return home and his son feels he cannot keep him safe. Pt was recently discharged from [facility] on 08/20. Dx of Bipolar Disorder. He reportedly has attempted suicide several times in the past month. He reports that he does not feel safe to return home and his children feel they cannot keep him safe. Assessment What has happened this shift: Patient was laying supine in his bed at change of shift. RN poked her head in to make a quick assessment and patient was awake and greeted RN. Patient was up for breakfast. Patient took his meds and was needy most of the day. Patient appears depressed but denies suicidal ideation. Patient up for group. Patient sits in the Community Room or sits in his room during the day. S/I, H/I: Denies. A/VH: Denies. Sleep: short cat naps ADL's: Independent. Group attendance: yes part of morning group Were meds taken: Yes Any med S/E: None observed or reported. Mental Status Exam Appearance: Slightly disheveled cedeno haired male wearing unit attire and using a walker. Eye contact: Good Behavior: Isolative Speech: Poverty of speech Mood: Depressed. Affect: Flat Thought process: Linear Thought Content: Wants to get better Cognition: Alert and oriented X4. Insight: Fair. Judgment: Fair. Interventions PRN's used: None. Therapeutic interventions: Maintained a safe and supportive environment, ensured contract for safety, provided clear and simple instructions, provided direction and encouragement regarding performance of ADLs, and maintained Q15 minute safety checks. Restraints/seclusion/emergency medication: Justification of Continued Inpatient Treatment: Requires interruption of current crisis in a safe and therapeutic environment.
[2021-09-02 19:33] VITALS: BP 116/56
[2021-09-02] MEDS: quetiapine 100mg tablet PO SCH (20:03)
[2021-09-02] MEDS: ESCITALOPRAM OXALATE 5 MG TABLET PO SCH (20:03)
[2021-09-02] MEDS: primidone 250mg tablet PO SCH (20:03)
[2021-09-02] MEDS: magnesium hydroxide 30ml (MOM) UD suspension PO PRN (20:03)
[2021-09-02] MEDS: carbidopa/levodopa 50/200mg CR tablet PO SCH (20:03)
--- NOTE | 2021-09-02 20:48 | NUR ---
Nursing Progress Note: Legal hold: 5150 Client on involuntary status for GD Report received from JOSSIE hurtado with use of SBAR. ADMIT NOTE Pt admitted to [facility] at 1555, escorted in a wheelchair by PCT and security. 5150 written for DTS: Hunter ingested over 2 cups of bleach and 8 Tylenol. He reported that he was trying to kill himself because he's tired of being sick. He reported that he does not feel safe to return home and his son feels he cannot keep him safe. Pt was recently discharged from [facility] on 08/20. Dx of Bipolar Disorder. He reportedly has attempted suicide several times in the past month. He reports that he does not feel safe to return home and his children feel they cannot keep him safe. Assessment What has happened this shift: pt isolating to his room at change of shift, Encouraged to come out of his room for snacks and he declined. Pt reports having bm but is worried about constipation and requests MOM and colace w/HS meds. Pt Denies SI. States he knows he is going to be here longer and thinks that's a good idea for now because he knows he's not better yet. S/I, H/I: Denies. A/VH: Denies. Sleep: see sleep hours ADL's: Independent. Group attendance: yes part of morning group Were meds taken: Yes Any med S/E: None observed or reported. Mental Status Exam Appearance: Slightly disheveled cedeno haired male wearing unit attire and using a walker. Eye contact: Good Behavior: Isolative Speech: Poverty of speech Mood: Depressed. Affect: Flat Thought process: Linear Thought Content: asking about medications Cognition: Alert and oriented X4. Insight: Fair. Judgment: Fair. Interventions PRN's used: Colace MOM Therapeutic interventions: Maintained a safe and supportive environment, ensured contract for safety, provided clear and simple instructions, provided direction and encouragement regarding performance of ADLs, and maintained Q15 minute safety checks. Restraints/seclusion/emergency medication: Justification of Continued Inpatient Treatment: Requires interruption of current crisis in a safe and therapeutic environment.
[2021-09-03] MEDS: carbidoba-levodopa 25-100mg tablet PO SCH ×3 (07:40→20:45)
[2021-09-03] MEDS: famotidine 20mg tablet PO SCH ×2 (07:41→17:05)
[2021-09-03] MEDS: carVEDilol 12.5mg tablet PO SCH ×2 (07:41→20:47)
[2021-09-03] MEDS: multivitamins, therapeutics tablet PO SCH (07:41)
[2021-09-03] MEDS: atorvastatin 10mg tablet PO SCH (07:41)
[2021-09-03] MEDS: pantoprazole 40mg Tablet.DR PO SCH ×2 (07:41→20:47)
[2021-09-03] MEDS: lisinopril 5mg tablet PO SCH ×2 (07:41→20:49)
[2021-09-03] MEDS: aspirin 325mg tablet, delayed-release (Ecotrin) PO SCH (07:41)
[2021-09-03] MEDS: metFORMIN 500mg tablet PO SCH ×2 (07:42→20:47)
[2021-09-03] MEDS: gabapentin 100mg capsule PO SCH ×3 (07:42→20:48)
[2021-09-03] MEDS: docusate sod 100mg capsule PO PRN (07:48)
[2021-09-03 08:00] VITALS: BP 142/58
[2021-09-03] MEDS: RASAGILINE MESYLATE 1 MG PO SCH (08:00)
[2021-09-03] MEDS: lactose-reduced food (Ensure High Protein) 237ml bottle PO SCH ×3 (08:33→18:05)
[2021-09-03] MEDS: ondansetron 4mg rapidly disintigrating tab PO PRN (08:44)
[2021-09-03] MEDS: mag hydrox/Alum hydrox/simeth 30ml oral suspension PO PRN (08:46)
--- NOTE | 2021-09-03 09:01 | NUR ---
Initial: Pt admit for bipolar disorder with SI. Currently on a regular diet and eating well with mostly 75-100% PO intake of meals with the exception of 25% PO intake x 2 meals. Noted pt receiving and Ensure High Protein TID and pt with mostly 100% PO intake of ONS. Combined PO intake of meals and ONS is exceeding estimated nutrient needs. Recommend discontinuing ONS as pt meeting estimated nutrient needs with PO intake of meals alone. Noted pt with T2DM, well controlled with A1c 6.6%. Recommend continuing with regular diet in view of A1c and BG well controlled since admit with range 112-136 mg/dL. LBM 09/01. Per certified nurse midwife pt denies feelings of constipation though is hoping to have a BM for regularity. Pt is receiving PRN bowel care. No nutrition intervention implemented at this time. Will continue to follow. Recommendations: 1) Continue regular diet; T2DM well controlled 2) Discontinue Ensure High Protein TIDWM as pt exceeding maximum estimated nutrient needs; meeting estimated nutrient needs with meal PO intake alone 3) Routine bowel care 4) Weekly scaled weights Addendum: 09/03/21 at [address] Amended: Links added.
--- NOTE | 2021-09-03 10:44 | NUR ---
Pt. attended group today. We talked about Communication today focusing on how to utilize I messages. This [employer] shared how to create an I message and then we practiced writing them on the board. We also did an art expression activity where Pts. had to draw/express the possibilities they felt in their heart and then write about that. Pt. engaged well in the group today. He trena in his heart and shared with the group the things that he was looking forward to in the future. His mood appear depressive with a congruent affect. His thought content and thought process were WNL. Violet Waddell LCSW
[2021-09-03] MEDS ORDERED: glycerin ADULT rectal suppository RC ONE (14:50)
--- NOTE | 2021-09-03 17:55 | NUR ---
Nursing Progress Note: Legal hold: 5250 Client on involuntary status for GD Report received from JOSSIE Clark with use of SBAR. ADMIT NOTE Pt admitted to [facility] at 1555, escorted in a wheelchair by PCT and security. 5150 written for DTS: Hunter ingested over 2 cups of bleach and 8 Tylenol. He reported that he was trying to kill himself because he's tired of being sick. He reported that he does not feel safe to return home and his son feels he cannot keep him safe. Pt was recently discharged from [facility] on 08/20. Dx of Bipolar Disorder. He reportedly has attempted suicide several times in the past month. He reports that he does not feel safe to return home and his children feel they cannot keep him safe. Assessment What has happened this shift: RN received pt. asleep in bed at start of shift. Pt. awoke for breakfast and took all medications. Pt. c/o of nausea and received Zofran 4mg OTD with moderate effect. Pt. requested Maalox for indigestion and received with good effect. 1:1 done at bedside, pt. denies all psych symptoms. Pt. reports fear that he may need an ileostomy, stating, I think I really messed myself up. Pt. c/o constipation and requested suppository. Glycerin suppository ordered but RN informed that pharmacy is out of it. S/I, H/I: Denies. A/VH: Denies. Sleep: RN slept 8 hrs on NOC shift and did not appear to nap on day shift. ADL's: Independent. Group attendance: No Were meds taken: Yes Any med S/E: None observed or reported. Mental Status Exam Appearance: Slightly disheveled cedeno haired male wearing unit attire and using a walker. Eye contact: Good Behavior: Socially withdrawn and isolates to his room. Speech: Poverty of speech Mood: Depressed, anxious Affect: Flat Thought process: Linear Thought Content: Perseverates on bowels. Cognition: Alert and oriented X4. Insight: Fair. Judgment: Fair. Interventions PRN's used: Zofran x1, Maalox x1 Therapeutic interventions: Maintained a safe and supportive environment, ensured contract for safety, provided clear and simple instructions, provided direction and encouragement regarding performance of ADLs, and maintained Q15 minute safety checks. Restraints/seclusion/emergency medication: Justification of Continued Inpatient Treatment: Requires interruption of current crisis in a safe and therapeutic environment.
[2021-09-03] MEDS ORDERED: bisacodyl 10mg suppository rectal RC ONE (18:15)
[2021-09-03 19:44] VITALS: BP 116/58
[2021-09-03] MEDS: polyethylene glycol 3350 17gm powd pack PO SCH (20:41)
[2021-09-03] MEDS: primidone 250mg tablet PO SCH (20:45)
[2021-09-03] MEDS: quetiapine 100mg tablet PO SCH (20:46)
[2021-09-03] MEDS: ESCITALOPRAM OXALATE 5 MG TABLET PO SCH (20:46)
[2021-09-03] MEDS: carbidopa/levodopa 50/200mg CR tablet PO SCH (20:48)
--- NOTE | 2021-09-04 03:02 | NUR ---
Nursing Progress Note: Legal hold: 5150 Client on involuntary status for GD Report received from JOSSIE Sneed with use of SBAR. ADMIT NOTE Pt admitted to [facility] at 1555, escorted in a wheelchair by PCT and security. 5150 written for DTS: Hunter ingested over 2 cups of bleach and 8 Tylenol. He reported that he was trying to kill himself because he's tired of being sick. He reported that he does not feel safe to return home and his son feels he cannot keep him safe. Pt was recently discharged from [facility] on 08/20. Dx of Bipolar Disorder. He reportedly has attempted suicide several times in the past month. He reports that he does not feel safe to return home and his children feel they cannot keep him safe. Assessment What has happened this shift: Patient was observed sleeping at changed of shift. Patient isolated in room all shift. Patient was encouraged to leave room and participate in snack time but patient refused. Patient was give a suppository which resulted in a Md bowel movement. Patient took all night medications with out issue. Patient was assisted to the bathroom and back to bed. S/I, H/I: Denies. A/VH: Denies. Sleep: see sleep hours ADL's: Independent. Group attendance: n/a Were meds taken: Yes Any med S/E: None observed or reported. Mental Status Exam Appearance: Luciano haired older man wearing green unit scrubs and using walker Eye contact: Good Behavior: Isolative Speech: Poverty of speech Mood: Depressed. Affect: Flat Thought process: Linear Thought Content: asking about medications Cognition: Alert and oriented X4. Insight: Fair. Judgment: Fair. Interventions PRN's used: Therapeutic interventions: Maintained a safe and supportive environment, ensured contract for safety, provided clear and simple instructions, provided direction and encouragement regarding performance of ADLs, and maintained Q15 minute safety checks. Restraints/seclusion/emergency medication: Justification of Continued Inpatient Treatment: Requires interruption of current crisis in a safe and therapeutic environment.
[2021-09-04 07:30] VITALS: BP 123/69
[2021-09-04] MEDS: lactose-reduced food (Ensure High Protein) 237ml bottle PO SCH ×3 (08:00→18:04)
[2021-09-04] MEDS: RASAGILINE MESYLATE 1 MG PO SCH (08:00)
[2021-09-04] MEDS: aspirin 325mg tablet, delayed-release (Ecotrin) PO SCH (08:09)
[2021-09-04] MEDS: metFORMIN 500mg tablet PO SCH ×2 (08:09→20:13)
[2021-09-04] MEDS: pantoprazole 40mg Tablet.DR PO SCH ×2 (08:09→20:12)
[2021-09-04] MEDS: atorvastatin 10mg tablet PO SCH (08:09)
[2021-09-04] MEDS: multivitamins, therapeutics tablet PO SCH (08:09)
[2021-09-04] MEDS: gabapentin 100mg capsule PO SCH ×3 (08:09→20:12)
[2021-09-04] MEDS: famotidine 20mg tablet PO SCH ×2 (08:09→17:30)
[2021-09-04] MEDS: lisinopril 5mg tablet PO SCH ×2 (08:09→20:17)
[2021-09-04] MEDS: carVEDilol 12.5mg tablet PO SCH ×2 (08:09→20:12)
[2021-09-04] MEDS: carbidoba-levodopa 25-100mg tablet PO SCH ×3 (08:10→20:11)
[2021-09-04] MEDS: ondansetron 4mg rapidly disintigrating tab PO PRN (13:48)
--- NOTE | 2021-09-04 15:49 | NUR ---
5250 UPHELD FOR DTS
--- NOTE | 2021-09-04 17:39 | NUR ---
Nursing Progress Note: Legal hold: 5250 Client on involuntary status for GD Report received from JOSSIE Clark with use of SBAR. ADMIT NOTE Pt admitted to [facility] at 1555, escorted in a wheelchair by PCT and security. 5150 written for DTS: Hunter ingested over 2 cups of bleach and 8 Tylenol. He reported that he was trying to kill himself because he's tired of being sick. He reported that he does not feel safe to return home and his son feels he cannot keep him safe. Pt was recently discharged from [facility] on 08/20. Dx of Bipolar Disorder. He reportedly has attempted suicide several times in the past month. He reports that he does not feel safe to return home and his children feel they cannot keep him safe. Assessment What has happened this shift: RN received pt. asleep in bed at start of shift. Pt. awoke for breakfast and took all medications. 1:1 done at bedside, pt. denies SI/HI, A/V hallucinations. Pt. reports he had a BM last night after he received a suppository. Pt. is socially withdrawn and isolates to his room most of the day. Pt. observed sitting by his window and reading. After lunch pt. c/o nausea and received Zofran ODT with good effect. Pt. showered today. S/I, H/I: Denies. A/VH: Denies. Sleep: RN slept 8.25 hrs on NOC shift and did not appear to nap on day shift. ADL's: Independent. Group attendance: No Were meds taken: Yes Any med S/E: None observed or reported. Mental Status Exam Appearance: Slightly disheveled cedeno haired male wearing unit attire and using a walker. Eye contact: Good Behavior: Socially withdrawn and isolates to his room. Speech: WNL Mood: Depressed, anxious Affect: Blunted, depressed Thought process: Linear Thought Content: Circumstantial. Cognition: Alert and oriented X4. Insight: Fair. Judgment: Fair. Interventions PRN's used: Zofran x1 Therapeutic interventions: Maintained a safe and supportive environment, ensured contract for safety, provided clear and simple instructions, provided direction and encouragement regarding performance of ADLs, and maintained Q15 minute safety checks. Restraints/seclusion/emergency medication: Justification of Continued Inpatient Treatment: Requires interruption of current crisis in a safe and therapeutic environment.
[2021-09-04] MEDS: polyethylene glycol 3350 17gm powd pack PO SCH (20:07)
[2021-09-04] MEDS: ESCITALOPRAM OXALATE 5 MG TABLET PO SCH (20:08)
[2021-09-04] MEDS: quetiapine 100mg tablet PO SCH (20:11)
[2021-09-04 20:13] VITALS: BP 135/46
[2021-09-04] MEDS: carbidopa/levodopa 50/200mg CR tablet PO SCH (20:13)
[2021-09-04] MEDS: primidone 250mg tablet PO SCH (20:13)
--- NOTE | 2021-09-05 01:33 | NUR ---
Nursing Progress Note: Legal hold: 5250 Client on involuntary status for GD Report received from JOSSIE Sneed with use of SBAR. ADMIT NOTE Pt admitted to [facility] at 1555, escorted in a wheelchair by PCT and security. 5150 written for DTS: Hunter ingested over 2 cups of bleach and 8 Tylenol. He reported that he was trying to kill himself because he's tired of being sick. He reported that he does not feel safe to return home and his son feels he cannot keep him safe. Pt was recently discharged from [facility] on 08/20. Dx of Bipolar Disorder. He reportedly has attempted suicide several times in the past month. He reports that he does not feel safe to return home and his children feel they cannot keep him safe. Assessment What has happened this shift: Patient isolated in room all shift. Patient only left room to get phone and talk to his family. Patient continues to refuse to leave his room and socialize with other patients. Patient took all night medications without difficulty. Patient had to have blood pressure taken again due to diastolic being so low1 35/50.New blood pressure 138/68 Patient had to be talked down due to him getting frustrated with confused roommate. Roommate was moved to another room and patient went back to bed. S/I, H/I: Denies. A/VH: Denies. Sleep: see sleep hours ADL's: Independent. Group attendance: n/a Were meds taken: Yes Any med S/E: None observed or reported. Mental Status Exam Appearance: Luciano haired older man wearing green unit scrubs and using walker Eye contact: Good Behavior: Isolative Speech: Poverty of speech Mood: Depressed. Affect: Flat Thought process: Linear Thought Content: asking about medications Cognition: Alert and oriented X4. Insight: Fair. Judgment: Fair. Interventions PRN's used: Therapeutic interventions: Maintained a safe and supportive environment, ensured contract for safety, provided clear and simple instructions, provided direction and encouragement regarding performance of ADLs, and maintained Q15 minute safety checks. Restraints/seclusion/emergency medication: Justification of Continued Inpatient Treatment: Requires interruption of current crisis in a safe and therapeutic environment.
[2021-09-05] MEDS: famotidine 20mg tablet PO SCH ×2 (07:01→17:21)
[2021-09-05] MEDS: pantoprazole 40mg Tablet.DR PO SCH ×2 (07:01→20:06)
[2021-09-05] MEDS: carbidoba-levodopa 25-100mg tablet PO SCH ×2 (07:57→13:02)
[2021-09-05] MEDS: aspirin 325mg tablet, delayed-release (Ecotrin) PO SCH (07:58)
[2021-09-05] MEDS: metFORMIN 500mg tablet PO SCH ×2 (07:58→20:07)
[2021-09-05] MEDS: multivitamins, therapeutics tablet PO SCH (07:59)
[2021-09-05] MEDS: carVEDilol 12.5mg tablet PO SCH ×2 (07:59→20:06)
[2021-09-05] MEDS: lisinopril 5mg tablet PO SCH ×2 (07:59→20:05)
[2021-09-05] MEDS: gabapentin 100mg capsule PO SCH ×3 (07:59→20:05)
[2021-09-05] MEDS: atorvastatin 10mg tablet PO SCH (07:59)
[2021-09-05 08:00] VITALS: BP 132/63
[2021-09-05] MEDS: lactose-reduced food (Ensure High Protein) 237ml bottle PO SCH ×3 (08:03→18:00)
[2021-09-05] MEDS: ondansetron 4mg rapidly disintigrating tab PO PRN (08:48)
--- NOTE | 2021-09-05 17:43 | NUR ---
Nursing Progress Note: Legal hold: 5250 Client on involuntary status for GD Report received from JOSSIE Mauricio with use of SBAR. ADMIT NOTE 5150 written for DTS: Hunter ingested over 2 cups of bleach and 8 Tylenol. He reported that he was trying to kill himself because he's tired of being sick. He reported that he does not feel safe to return home and his son feels he cannot keep him safe. Pt was recently discharged from [facility] on 08/20. Dx of Bipolar Disorder. He reportedly has attempted suicide several times in the past month. He reports that he does not feel safe to return home and his children feel they cannot keep him safe. Assessment What has happened this shift: RN received pt. asleep in bed at start of shift. Pt. awoke for breakfast and took all medications. After breakfast pt. requested a Zofran and received 4mg with good effect. 1:1 done at bedside, pt. denies SI/HI, A/V hallucinations. Pt. reports that he is looking forward to his discharge on Friday 09/08. Pt. states he is being encouraged to attend a day program, but states he doesnt want to because indigestion issues lately. Pt. observed pacing the halls in the afternoon. Pt. reported medium sized bowel movement today. S/I, H/I: Denies. A/VH: Denies. Sleep: RN slept 7.5 hrs on NOC shift and napped intermittently on day shift. ADL's: Independent Group attendance: Yes Were meds taken: Yes Any med S/E: Denies. None observed. Mental Status Exam Appearance: Slightly disheveled cedeno haired male wearing unit attire and using a walker. Eye contact: WNL Behavior: Socially withdrawn and isolates to his room. Speech: WNL Mood: Depressed, anxious Affect: Blunted, depressed Thought process: Linear Thought Content: Circumstantial. Cognition: Alert and oriented X4. Insight: Fair. Judgment: Fair. Interventions PRN's used: Zofran x1 Therapeutic interventions: Maintained a safe and supportive environment, ensured contract for safety, provided clear and simple instructions, provided direction and encouragement regarding performance of ADLs, and maintained Q15 minute safety checks. Restraints/seclusion/emergency medication: Justification of Continued Inpatient Treatment: Requires interruption of current crisis in a safe and therapeutic environment.
[2021-09-05 19:00] VITALS: BP 125/60
[2021-09-05] MEDS: polyethylene glycol 3350 17gm powd pack PO SCH (20:01)
[2021-09-05] MEDS: ESCITALOPRAM OXALATE 5 MG TABLET PO SCH (20:04)
[2021-09-05] MEDS: primidone 250mg tablet PO SCH (20:05)
[2021-09-05] MEDS: quetiapine 100mg tablet PO SCH (20:07)
[2021-09-05] MEDS: carbidopa/levodopa 50/200mg CR tablet PO SCH (20:08)
--- NOTE | 2021-09-06 01:14 | NUR ---
Nursing Progress Note: Legal hold: 5250 Client on involuntary status for GD/DTS Report received from JOSSIE Sneed with use of SBAR. ADMIT NOTE Pt admitted to [facility] at 1555, escorted in a wheelchair by PCT and security. 5150 written for DTS: Hunter ingested over 2 cups of bleach and 8 Tylenol. He reported that he was trying to kill himself because he's tired of being sick. He reported that he does not feel safe to return home and his son feels he cannot keep him safe. Pt was recently discharged from [facility] on 08/20. Dx of Bipolar Disorder. He reportedly has attempted suicide several times in the past month. He reports that he does not feel safe to return home and his children feel they cannot keep him safe. Assessment What has happened this shift: Patient was found standing in the hallway on the phone with family at beginning of the shift. Patient returned to room and self isolated until medications were given. Patient took all medications without issue and went back to bed. Patient continues to refuse to socilize with other patients. S/I, H/I: Denies. A/VH: Denies. Sleep: see sleep hours ADL's: Independent. Group attendance: n/a Were meds taken: Yes Any med S/E: None observed or reported. Mental Status Exam Appearance: Luciano haired older man wearing green unit scrubs and using walker Eye contact: Good Behavior: Isolative Speech: Poverty of speech Mood: Depressed. Affect: Flat Thought process: Linear Thought Content: asking about medications Cognition: Alert and oriented X4. Insight: Fair. Judgment: Fair. Interventions PRN's used: Therapeutic interventions: Maintained a safe and supportive environment, ensured contract for safety, provided clear and simple instructions, provided direction and encouragement regarding performance of ADLs, and maintained Q15 minute safety checks. Restraints/seclusion/emergency medication: Justification of Continued Inpatient Treatment: Requires interruption of current crisis in a safe and therapeutic environment.
[2021-09-06 07:35] VITALS: BP 116/75
[2021-09-06] MEDS: atorvastatin 10mg tablet PO SCH (07:58)
[2021-09-06] MEDS: famotidine 20mg tablet PO SCH ×2 (07:58→17:24)
[2021-09-06] MEDS: metFORMIN 500mg tablet PO SCH ×2 (07:58→20:45)
[2021-09-06] MEDS: gabapentin 100mg capsule PO SCH ×3 (07:58→20:45)
[2021-09-06] MEDS: multivitamins, therapeutics tablet PO SCH (07:58)
[2021-09-06] MEDS: aspirin 325mg tablet, delayed-release (Ecotrin) PO SCH (07:58)
[2021-09-06] MEDS: carVEDilol 12.5mg tablet PO SCH ×2 (07:59→20:46)
[2021-09-06] MEDS: carbidoba-levodopa 25-100mg tablet PO SCH ×3 (07:59→17:24)
[2021-09-06] MEDS: pantoprazole 40mg Tablet.DR PO SCH ×2 (07:59→20:45)
[2021-09-06] MEDS: lactose-reduced food (Ensure High Protein) 237ml bottle PO SCH ×3 (08:12→18:01)
[2021-09-06] MEDS: lisinopril 5mg tablet PO SCH ×2 (10:21→20:47)
--- NOTE | 2021-09-06 16:32 | NUR ---
Nursing Progress Note: Legal hold: 5250 Client on involuntary status for GD Report received from RN with use of SBAR 5157 written for DTS: Why they are here: Hunter ingested over 2 cups of bleach and 8 Tylenol. He reported that he was trying to kill himself because he's tired of being sick. He reported that he does not feel safe to return home and his son feels he cannot keep him safe. Pt was recently discharged from [facility] on 08/20. Dx of Bipolar Disorder. He reportedly has attempted suicide several times in the past month. He reports that he does not feel safe to return home and his children feel they cannot keep him safe. Assessment What has happened this shift: Received Pt in bed sleeping w/o distress at the beginning of the shift. Pt woke and was cooperative with vitals and got up for the day and did ADLs. Pt ate breakfast and lunch well and took AM meds w/o issue. Hunter returned to his room and came out to watch TV in morning and afternoon. Pt engages in conversation yet appears depressed and sad at times. Pt asked for prune juice, stating I feel backed up. Pt spent most of the day in his room reading by the window and used phone several times. S/I, H/I: Denies A/VH: Denies Sleep: None this shift ADL's: Independent Group attendance: NA Were meds taken: Yes Any med S/E: Denies. None observed Mental Status Exam Appearance: Casual in green scrubs Eye contact: WNL Behavior: Socially withdrawn and isolates to his room Speech: WNL Mood: Depressed, anxious Affect: Blunted, depressed Thought process: Linear Thought Content: Circumstantial Cognition: Alert and oriented X4 Insight: Fair Judgment: Fair Interventions PRN's used: None Therapeutic interventions: Maintained a safe and supportive environment, ensured contract for safety, provided clear and simple instructions, provided direction and encouragement regarding performance of ADLs, and maintained Q15 minute safety checks. Restraints/seclusion/emergency medication: NA Justification of Continued Inpatient Treatment: Requires interruption of current crisis in a safe and therapeutic environment.
[2021-09-06 20:00] VITALS: BP 132/68
[2021-09-06] MEDS: polyethylene glycol 3350 17gm powd pack PO SCH (20:45)
[2021-09-06] MEDS: quetiapine 100mg tablet PO SCH (20:46)
[2021-09-06] MEDS: ESCITALOPRAM OXALATE 5 MG TABLET PO SCH (20:46)
[2021-09-06] MEDS: carbidopa/levodopa 50/200mg CR tablet PO SCH (20:46)
[2021-09-06] MEDS: primidone 250mg tablet PO SCH (20:46)
--- NOTE | 2021-09-07 05:57 | NUR ---
pt getting ready for bed at change of shift. time was spent in his room. took medications without any difficulty and no reports of side effects. pt went to bed after medications and has been sleeping all night.
[2021-09-07] MEDS: carbidoba-levodopa 25-100mg tablet PO SCH ×3 (08:05→16:58)
[2021-09-07] MEDS: famotidine 20mg tablet PO SCH ×2 (08:05→16:58)
[2021-09-07] MEDS: gabapentin 100mg capsule PO SCH ×3 (08:05→20:43)
[2021-09-07] MEDS: aspirin 325mg tablet, delayed-release (Ecotrin) PO SCH (08:05)
[2021-09-07] MEDS: metFORMIN 500mg tablet PO SCH ×2 (08:06→20:43)
[2021-09-07] MEDS: lisinopril 5mg tablet PO SCH ×2 (08:06→20:43)
[2021-09-07] MEDS: atorvastatin 10mg tablet PO SCH (08:06)
[2021-09-07] MEDS: pantoprazole 40mg Tablet.DR PO SCH ×2 (08:06→20:44)
[2021-09-07] MEDS: carVEDilol 12.5mg tablet PO SCH ×2 (08:06→20:43)
[2021-09-07] MEDS: multivitamins, therapeutics tablet PO SCH (08:06)
[2021-09-07] MEDS: lactose-reduced food (Ensure High Protein) 237ml bottle PO SCH ×3 (08:09→17:54)
[2021-09-07 08:52] VITALS: BP 107/51
--- NOTE | 2021-09-07 17:52 | NUR ---
Nursing Progress Note: Hunter Legal hold: 5250 Client on involuntary status for GD Report received from JOSSIE Hatch with use of SBAR 5150 written for DTS: Why they are here: Hunter ingested over 2 cups of bleach and 8 Tylenol. He reported that he was trying to kill himself because he's tired of being sick. He reported that he does not feel safe to return home and his son feels he cannot keep him safe. Pt was recently discharged from [facility] on 08/20. Dx of Bipolar Disorder. He reportedly has attempted suicide several times in the past month. He reports that he does not feel safe to return home and his children feel they cannot keep him safe. Assessment What has happened this shift: Patient received sleeping in bed at change of shift. He was receptive to scheduled medication and 1:1 assessment. Patient joined in the community room with peers for breakfast. He is noted to be calm, pleasant, and cooperative with care. Patient retreated back to his room after breakfast and was observed sitting in his chair reading a book. Patient continues to perseverate on discharge, noted asking to speak with the doctor so he can leave. He denies SI/HI, AH or VH. Does not appear to be responding to internal stimuli. Patient engages in conversation, yet appears reserved and depressed at times. He was isolative to his room the majority of the day, noted looking out the window. He joined in the community room with peers for all meals and snacks. S/I, H/I: Denies A/VH: Denies. Does not appear to be responding to IS. Sleep: Napped for approximately one hour on this shift ADL's: Independent Group attendance: No group provided today Were meds taken: Yes Any med S/E: Denies. None observed Mental Status Exam Appearance: Groomed, casual in green scrubs Eye contact: WNL, good Behavior: Socially withdrawn, isolates to his room, calm Speech: WNL, clear Mood: Depressed, reserved Affect: Constricted Thought process: Linear Thought Content: Circumstantial Cognition: Alert and oriented X4 Insight: Fair Judgment: Fair Interventions PRN's used: None Therapeutic interventions: Maintained a safe and supportive environment, ensured contract for safety, provided clear and simple instructions, provided direction and encouragement regarding performance of ADLs, encouraged participation on the unit, and maintained Q15 minute safety checks. Restraints/seclusion/emergency medication: NA Justification of Continued Inpatient Treatment: Requires interruption of current crisis in a safe and therapeutic environment.
--- NOTE | 2021-09-07 18:45 | NUR ---
Nursing Progress Note: Hunter. Pt sleeping in room Report received from JOSSIE Coburn with use of SBAR
[2021-09-07 20:17] VITALS: BP 124/55
[2021-09-07] MEDS: ESCITALOPRAM OXALATE 5 MG TABLET PO SCH (20:42)
[2021-09-07] MEDS: quetiapine 100mg tablet PO SCH (20:42)
[2021-09-07] MEDS: polyethylene glycol 3350 17gm powd pack PO SCH (20:42)
[2021-09-07] MEDS: docusate sod 100mg capsule PO SCH (20:43)
[2021-09-07] MEDS: carbidopa/levodopa 50/200mg CR tablet PO SCH (20:43)
[2021-09-07] MEDS: primidone 250mg tablet PO SCH (20:44)
--- NOTE | 2021-09-08 00:43 | NUR ---
Nursing Progress Note: Hunter Legal hold: 5250 Client on involuntary status for GD Report received from JOSSIE Coburn with use of SBAR 5150 written for DTS: Why they are here: Hunter ingested over 2 cups of bleach and 8 Tylenol. He reported that he was trying to kill himself because he's tired of being sick. He reported that he does not feel safe to return home and his son feels he cannot keep him safe. Pt was recently discharged from [facility] on 08/20. Dx of Bipolar Disorder. He reportedly has attempted suicide several times in the past month. He reports that he does not feel safe to return home and his children feel they cannot keep him safe. Assessment What has happened this shift: Patient received sleeping in bed at change of shift. He was receptive to scheduled medication and 1:1 assessment. Patient stayed in room all night declined snack in community room. He is noted to be calm, pleasant, and cooperative with care. Pt states he wants to sleep tonight. He denies SI/HI, AH or VH. Does not appear to be responding to internal stimuli. Patient engages in conversation, yet appears reserved and depressed at times. He was sitting in bed briefly reading a book, mostly sleeping. S/I, H/I: Denies A/VH: Denies. Does not appear to be responding to IS. Sleep: Sleeping at this time and most of shift ADL's: Independent Group attendance: N/A Were meds taken: Yes Any med S/E: Denies. None observed Mental Status Exam Appearance: Groomed, casual in green scrubs Eye contact: WNL, good Behavior: Socially withdrawn, isolates to his room, calm Speech: WNL, clear Mood: reserved Affect: Constricted Thought process: Linear Thought Content: Circumstantial Cognition: Alert and oriented X4 Insight: Fair Judgment: Fair Interventions PRN's used: None Therapeutic interventions: Maintained a safe and supportive environment, ensured contract for safety, provided clear and simple instructions, provided direction and encouragement regarding performance of ADLs, encouraged participation on the unit, and maintained Q15 minute safety checks. Restraints/seclusion/emergency medication: NA Justification of Continued Inpatient Treatment: Requires interruption of current crisis in a safe and therapeutic environment.
[2021-09-08] MEDS: carbidoba-levodopa 25-100mg tablet PO SCH ×3 (07:38→17:17)
[2021-09-08] MEDS: gabapentin 100mg capsule PO SCH ×3 (07:38→20:13)
[2021-09-08] MEDS: carVEDilol 12.5mg tablet PO SCH ×2 (07:38→20:13)
[2021-09-08] MEDS: metFORMIN 500mg tablet PO SCH ×2 (07:38→20:13)
[2021-09-08] MEDS: atorvastatin 10mg tablet PO SCH (07:38)
[2021-09-08] MEDS: aspirin 325mg tablet, delayed-release (Ecotrin) PO SCH (07:38)
[2021-09-08] MEDS: pantoprazole 40mg Tablet.DR PO SCH ×2 (07:38→20:13)
[2021-09-08] MEDS: multivitamins, therapeutics tablet PO SCH (07:38)
[2021-09-08] MEDS: famotidine 20mg tablet PO SCH ×2 (07:38→17:17)
[2021-09-08] MEDS: lisinopril 5mg tablet PO SCH ×2 (07:38→20:12)
[2021-09-08 07:53] VITALS: BP 116/66
[2021-09-08] MEDS: lactose-reduced food (Ensure High Protein) 237ml bottle PO SCH ×3 (08:54→18:14)
[2021-09-08] MEDS: docusate sod 100mg capsule PO PRN (13:32)
--- NOTE | 2021-09-08 18:17 | NUR ---
Nursing Progress Note: Legal hold: 5250 Client on involuntary status for GD Report received from JOSSIE Kyle with use of SBAR 5150 written for DTS: Why they are here: Hunter ingested over 2 cups of bleach and 8 Tylenol. He reported that he was trying to kill himself because he's tired of being sick. He reported that he does not feel safe to return home and his son feels he cannot keep him safe. Pt was recently discharged from [facility] on 08/20. Dx of Bipolar Disorder. He reportedly has attempted suicide several times in the past month. He reports that he does not feel safe to return home and his children feel they cannot keep him safe. Assessment What has happened this shift: Patient received sleeping in bed at change of shift. Pt. awoke for breakfast and took all medications. Pt. reports he was going to discharge today, but will go tomorrow as he needs to confirm f/u care with his daughter who he will be living with. 1:1 done at bedside, pt. denies SI/HI, A/V hallucinations. Pt. reports he is ready for discharge. Pt. c/o of constipation and received Colace 200mg po x1 and a prune juice. S/I, H/I: Denies A/VH: Denies Sleep: Pt. napped intermittently throughout the day. ADL's: Independent Group attendance: Yes Were meds taken: Yes Any med S/E: Denies. None observed Mental Status Exam Appearance: Groomed, casual in green scrubs Eye contact: WNL Behavior: Socially withdrawn, isolates to his room, Cooperative. Speech: WNL Mood: Depressed Affect: Constricted Thought process: Linear Thought Content: Circumstantial Cognition: Alert and oriented X4 Insight: Fair Judgment: Fair Interventions PRN's used: None Therapeutic interventions: Maintained a safe and supportive environment, ensured contract for safety, provided clear and simple instructions, provided direction and encouragement regarding performance of ADLs, encouraged participation on the unit, and maintained Q15 minute safety checks. Restraints/seclusion/emergency medication: NA Justification of Continued Inpatient Treatment: Requires interruption of current crisis in a safe and therapeutic environment.
[2021-09-08 19:48] VITALS: BP 124/56
[2021-09-08] MEDS: polyethylene glycol 3350 17gm powd pack PO SCH (20:11)
[2021-09-08] MEDS: quetiapine 100mg tablet PO SCH (20:11)
[2021-09-08] MEDS: docusate sod 100mg capsule PO SCH (20:12)
[2021-09-08] MEDS: carbidopa/levodopa 50/200mg CR tablet PO SCH (20:13)
[2021-09-08] MEDS: ESCITALOPRAM OXALATE 5 MG TABLET PO SCH (20:13)
[2021-09-08] MEDS: primidone 250mg tablet PO SCH (20:13)
--- NOTE | 2021-09-09 02:01 | NUR ---
Nursing Progress Note: Legal hold: 5250 Client on involuntary status for GD Report received from JOSSIE Sneed with use of SBAR 5157 written for DTS: Why they are here: Hunter ingested over 2 cups of bleach and 8 Tylenol. He reported that he was trying to kill himself because he's tired of being sick. He reported that he does not feel safe to return home and his son feels he cannot keep him safe. Pt was recently discharged from [facility] on 08/20. Dx of Bipolar Disorder. He reportedly has attempted suicide several times in the past month. He reports that he does not feel safe to return home and his children feel they cannot keep him safe. Assessment What has happened this shift: Pt in room awake at start of shift. Pt says he is going home tomorrow. He says he feels ready to discharge "I"m tired of being here." Per pt he lives with his daughter and he says it is a good living situation. Pt declined to come to group room for snack. He isolated to room all shift. S/I, H/I: Denies A/VH: Denies Sleep: Asleep at this time ADL's: Independent Group attendance: NA Were meds taken: Yes Any med S/E: Denies. None observed Mental Status Exam Appearance: Groomed, casual in green scrubs Eye contact: WNL Behavior: Socially withdrawn, isolates to his room, Cooperative. Speech: WNL Mood: Depressed Affect: Constricted Thought process: Linear Thought Content: Circumstantial Cognition: Alert and oriented X4 Insight: Fair Judgment: Fair Interventions PRN's used: None Therapeutic interventions: Maintained a safe and supportive environment, ensured contract for safety, provided clear and simple instructions, provided direction and encouragement regarding performance of ADLs, encouraged participation on the unit, and maintained Q15 minute safety checks. Restraints/seclusion/emergency medication: NA Justification of Continued Inpatient Treatment: Requires interruption of current crisis in a safe and therapeutic environment.
[2021-09-09] MEDS ORDERED: QUET200T31 PO (07:38)
[2021-09-09] MEDS ORDERED: PANT40TA54 PO (07:38)
[2021-09-09] MEDS ORDERED: ESCI5TAB PO (07:38)
[2021-09-09 07:42] VITALS: BP 115/58
[2021-09-09] MEDS: pantoprazole 40mg Tablet.DR PO SCH (08:04)
[2021-09-09] MEDS: carVEDilol 12.5mg tablet PO SCH (08:04)
[2021-09-09] MEDS: atorvastatin 10mg tablet PO SCH (08:04)
[2021-09-09] MEDS: metFORMIN 500mg tablet PO SCH (08:04)
[2021-09-09 08:05] VITALS: BP_SYST 115
[2021-09-09] MEDS: carbidoba-levodopa 25-100mg tablet PO SCH ×2 (08:05→12:39)
[2021-09-09] MEDS: famotidine 20mg tablet PO SCH (08:05)
[2021-09-09] MEDS: multivitamins, therapeutics tablet PO SCH (08:05)
[2021-09-09] MEDS: aspirin 325mg tablet, delayed-release (Ecotrin) PO SCH (08:05)
[2021-09-09] MEDS: gabapentin 100mg capsule PO SCH ×2 (08:05→12:39)
[2021-09-09] MEDS: lisinopril 5mg tablet PO SCH (08:05)
[2021-09-09] MEDS: lactose-reduced food (Ensure High Protein) 237ml bottle PO SCH (08:07)
--- NOTE | 2021-09-09 11:40 | NUR ---
DISCHARGE NOTE: Pt. discharged to daughter's home driven by daughter in car. Pt. discharged with all belongings and valuables. RN went over all discharge paperwork with pt. and pt. verbalized understanding of discharge plan, medications, and emergency numbers including 911. Pt. singed all d/c paperwork. Pt. is A&Ox4, pt. denies all psych symptoms. Pt. is in no apparent distress.
== END 2021-09-09 12:40 | disposition home or self-care (01) | DRG 918 ==
LOC: ER 12:28 → ADULT MH 08-30 13:05
PROVIDERS: ADMIT Psychiatry & Neurology Psychiatry; ATTEND Psychiatry & Neurology Psychiatry
DX: T39.012A Poisoning by aspirin, intentional self-harm, initial encounter (principal); I69.351 Hemiplegia and hemiparesis following cerebral infarction affecting right dominant side; F31.9 Bipolar disorder, unspecified; T50.902A Poisoning by unspecified drugs, medicaments and biological substances, intentional self-harm, initial encounter; F12.90 Cannabis use, unspecified, uncomplicated; Z20.822 Contact with and (suspected) exposure to COVID-19; E11.9 Type 2 diabetes mellitus without complications; G20 Parkinson's disease; G89.29 Other chronic pain; M51.36 Other intervertebral disc degeneration, lumbar region; G25.0 Essential tremor; E78.5 Hyperlipidemia, unspecified; M54.50 Low back pain, unspecified; K59.00 Constipation, unspecified; E66.3 Overweight; I10 Essential (primary) hypertension; Z82.0 Family history of epilepsy and other diseases of the nervous system; Z83.3 Family history of diabetes mellitus; Z82.49 Family history of ischemic heart disease and other diseases of the circulatory system; Z86.711 Personal history of pulmonary embolism; Z87.891 Personal history of nicotine dependence; Z91.51 Personal history of suicidal behavior; Z98.1 Arthrodesis status; Y92.89 Other specified places as the place of occurrence of the external cause; Z88.5 Allergy status to narcotic agent; Z88.8 Allergy status to other drugs, medicaments and biological substances; Z68.28 Body mass index [BMI] 28.0-28.9, adult; Z90.49 Acquired absence of other specified parts of digestive tract; Z79.899 Other long term (current) drug therapy
CPT/HCPCS: 36415; 80053; 80061; 80305; 80320; 80329; 81003; 82948; 83036; 84443; 85025; 87081; 87635; 93005; 96361; 96374; 96375; 99291; C9803; J1100; J2405; J2765; J3490; J7030

== ENCOUNTER 2021-09-11 18:52 | Emergency (ER) | payer MEDICARE ==
[~2021-09-11] VITALS: Ht 177.8 cm; Wt 90.9 kg
[~2021-09-11 18:52] MED LIST changes: +ESCI5TAB PO; -FAMO-128 PO; -HYDR-3972 PO; +PANT40TA54 PO; -POLY17PO10 PO; -PSYL0.4C2 PO; +RASA1TAB PO
--- NOTE | 2021-09-11 19:25 | NUR ---
PATIENT STATES THAT HE HAS 4 PREVIOUS SUICIDE ATTEMPTS PRECIPITATED BY VOICES TELLING HIM TO KILL HIMSELF. PATIENT DENIES ANY NEW PLANS AT THIS TIME.
[2021-09-11 19:27] LABS: BASOPHILS % (AUTO) 0.1 % (0-1); EOSINOPHILS % (AUTO) 0.1 % (0-6); HEMATOCRIT 41.8 % (42.0-52.0); HEMOGLOBIN 13.7 g/dl (14.0-17.9); LYMPHOCYTES # (AUTO) 0.8 X10'3 (1.1-4.8); LYMPHOCYTES % (AUTO) 4.1 % (21-51); MEAN CORPUSCULAR HEMOGLOBIN 25.9 PG (27.0-31.0); MEAN CORPUSCULAR HGB CONC 32.9 g/dL (33.0-36.5); MEAN CORPUSCULAR VOLUME 78.9 FL (78-98); MEAN PLATELET VOLUME 8.9 FL (7.4-10.4); MONOCYTES # (AUTO) 1.2 X10'3 (0-0.9); MONOCYTES % (AUTO) 6.4 % (2-12); NEUTROPHILS # (AUTO) 17.4 X10'3 (1.8-7.7); NEUTROPHILS % (AUTO) 89.3 % (42-75); PLATELET COUNT 265 X10'3 (140-440); RED BLOOD COUNT 5.29 X10'6 (4.70-6.10); RED CELL DISTRIBUTION WIDTH 15.7 % (11.5-14.5); WHITE BLOOD COUNT 19.4 X10'3 (4.5-11.0)
[2021-09-11 19:32] LABS: ALANINE AMINOTRANSFERASE 26 U/L (12-78); ALBUMIN 3.8 G/DL (3.4-5.0); ALBUMIN/GLOBULIN RATIO 1.1 (1.1-1.5); ALKALINE PHOSPHATASE 77 IU/L (46-116); ANION GAP 16 (8-16); ASPARTATE AMINO TRANSFERASE 35 U/L (10-37); BILIRUBIN,TOTAL 0.6 MG/DL (0.1-1.0); BLOOD UREA NITROGEN 42 MG/DL (7-18); BUN/CREATININE RATIO 40.4 (5.4-32.0); CALCIUM 8.6 MG/DL (8.5-10.1); CHLORIDE 96 MMOL/L (99-107); CREATININE 1.04 MG/DL (0.60-1.10); ETHANOL < 0.010 GM/DL (0.0-0.010); GLUCOSE 156 MG/DL (70-104); POTASSIUM 5.3 MMOL/L (3.5-5.1); SODIUM 134 MMOL/L (135-145); TOTAL PROTEIN 7.2 G/DL (6.4-8.2); eGFR 72 ML/MIN
[2021-09-11 20:51] LABS: ACETAMINOPHEN < 2.0 UG/ML (10-30)
--- NOTE | 2021-09-11 23:40 | NUR ---
Patient cleared by poison control - this blog writer spoke with Sathya at poison control and no further concerns.
[2021-09-12] MEDS ORDERED: docusate sod 100mg capsule PO PRN (04:35)
--- NOTE | 2021-09-12 04:37 | NUR ---
pt presents to the [facility] area, a/o, nad; Mental Health packet not printed due to outstanding [facility] lab.
[2021-09-12] MEDS ORDERED: ondansetron 4mg rapidly disintigrating tab PO PRN (04:40)
--- NOTE | 2021-09-12 06:00 | NUR ---
PT. CARE ASSUMED FROM OFF GOING NURSE DAVIN SETHI. PT. LYING IN BED RESTING QUIETLY WITH EYES CLOSED NO DISTRESS NOTED.
--- NOTE | 2021-09-12 06:22 | NUR ---
Handsoff report given to oncoming rn
--- NOTE | 2021-09-12 07:45 | NUR ---
PT. ASSISTED TO BATHROOM X1 STAFF WITH ROLLING WALKER FOR STABILITY. PT. IS S/P BACK SURG. JUNE.
[2021-09-12] MEDS: RASAGILINE MESYLATE PO SCH (08:00)
[2021-09-12] MEDS: metFORMIN 500mg tablet PO SCH ×2 (08:00→20:47)
[2021-09-12 08:18] LABS: CLARITY,URINE CLEAR (Clear); COLOR,URINE YELLOW (Yellow); GLUCOSE, URINE NEGATIVE (Neg); KETONES,URINE NEGATIVE (Neg); LEUKOCYTE ESTERASE ,URINE NEGATIVE (Neg); NITRITES, URINE NEGATIVE (Neg); OCCULT BLOOD,URINE NEGATIVE (Neg); PROTEIN,URINE NEGATIVE (Neg); UROBILINOGEN,URINE 0.2 E.U/dL (0.2-1.0)
[2021-09-12 08:20] LABS: UA COLLECTION TYPE CLN CATCH MIDSTREAM
[2021-09-12 08:33] LABS: URINE AMPHETAMINE SCREEN NEGATIVE (Neg); URINE BARBITUATE SCREEN POSITIVE (Neg); URINE BENZODIAZEPINES SCREEN NEGATIVE (Neg); URINE CANNABINOID SCREEN NEGATIVE (Neg); URINE COCAINE SCREEN NEGATIVE (Neg); URINE METHADONE SCREEN NEGATIVE (Neg); URINE OPIATE SCREEN NEGATIVE (Neg); URINE PHENCYCLIDINE SCREEN NEGATIVE (Neg)
[2021-09-12] MEDS ORDERED: mag hydrox/Alum hydrox/simeth 30ml oral suspension PO ONE (09:35)
[2021-09-12] MEDS: carVEDilol 12.5mg tablet PO SCH ×2 (09:45→20:43)
[2021-09-12] MEDS: lisinopril 5mg tablet PO SCH ×2 (09:45→20:45)
[2021-09-12] MEDS: aspirin 81mg, enteric-coated 1 TAB TABLET.DR PO SCH (09:45)
[2021-09-12] MEDS: atorvastatin 10mg tablet PO SCH (09:45)
[2021-09-12] MEDS: carbidoba-levodopa 25-100mg tablet PO SCH ×3 (09:46→20:46)
[2021-09-12] MEDS: gabapentin 100mg capsule PO SCH ×3 (09:46→20:46)
[2021-09-12] MEDS: multivitamins, therapeutics tablet PO SCH (09:58)
[2021-09-12] MEDS: pantoprazole 40mg Tablet.DR PO SCH ×2 (09:59→20:44)
--- NOTE | 2021-09-12 11:20 | NUR ---
[facility] AT BEDSIDE.
--- NOTE | 2021-09-12 13:16 | NUR ---
PT. AAOX4 THIS SHIFT PRESENTS WITH A FLAT AFFECT AND DEPRESSED MOOD. PT. CURRENTLY DENIES ANY SI/HI OR A/V HALLUCINATIONS. COMPLIANT WITH MORNING MEDICATIONS AND PRN OF MAALOX FOR C/O STOMACH DISCOMFORT AND HEARTBURN. PT. COOPERATIVE WITH MORNING ASSESSMENT. PT. NOTED TO HAVE ALFREDO. LOWER FOOT +1 TRACE EDEMA . NO OTHER COMPLAINTS OR ISSUES NOTED. STAFF WILL CONTINUE TO MONITOR FOR SAFETY.
--- NOTE | 2021-09-12 17:33 | NUR ---
RESTING QUIETLY WITH EYES CLOSED.
--- NOTE | 2021-09-12 19:00 | NUR ---
Pt ambulating to restroom with walker and stanby assist x 1. No acute distress noted at this time.
--- NOTE | 2021-09-12 20:45 | NUR ---
Pt sitting up at bedside, pt med cooperative, however states the admin times for his sinement are not correct he states he should have the 25-100mg tid @ 0700,1100 and 1600 follwed by the ER 50-200MG QHS, Pr choose not to take the 25-100 mg dose but took the ER Dose.
[2021-09-12] MEDS ORDERED: quetiapine 100mg tablet PO SCH (21:00)
[2021-09-12] MEDS ORDERED: carbidopa/levodopa 50/200mg CR tablet PO SCH (21:00)
[2021-09-12] MEDS ORDERED: primidone 250mg tablet PO SCH (21:00)
[2021-09-12] MEDS ORDERED: ESCITALOPRAM OXALATE 5 MG TABLET PO SCH (21:00)
--- NOTE | 2021-09-12 23:00 | NUR ---
Pt sleeping, no distress noted.
--- NOTE | 2021-09-13 01:20 | NUR ---
Pt sleeping quietly, no distress noted.
--- NOTE | 2021-09-13 03:23 | NUR ---
Pt asleep at this time, no distress noted.
--- NOTE | 2021-09-13 06:00 | NUR ---
PT. CARE ASSUMED FROM OFF GOING NURSE VERONICA SETHI. PT. VISIBLE ON THE UNIT AWAKE LYING IN BED. PT. ASSISTED X 1 STAFF TO BATHROOM WITH ROLLING WALKER. STAFF WILL CONTINUE TO MONITOR FOR SAFETY.
[2021-09-13] MEDS: RASAGILINE MESYLATE PO SCH (08:00)
--- NOTE | 2021-09-13 08:30 | NUR ---
PT. AAOX3 THIS SHIFT DENIES ANY CURRENT SI/HI OR A/V HALLUCINATIONS. PT. PRESENTS CALM AND COOPERATIVE WITH MORNING ASSESSMENT AND SCHEDULED MEDICATIONS. PT. S/P BACK SURG. IN JUNE AND REQUIRES ASSISTX1 TO STAND. AMBULATES ON THE UNIT WITH A ROLLING WALKER. DENIES AN OTHER COMPLAINTS AT THIS TIME. PT. PROVIDED WITH HYGIENE SUPPLIES. ADL'S PERFORMED THIS SHIFT. STAFF WILL CONTINUE TO MONITOR FOR SAFETY.
[2021-09-13 08:33] VITALS: BP_DIAS 64
[2021-09-13] MEDS: gabapentin 100mg capsule PO SCH ×2 (08:44→13:04)
[2021-09-13] MEDS: pantoprazole 40mg Tablet.DR PO SCH (08:44)
[2021-09-13] MEDS: metFORMIN 500mg tablet PO SCH (08:44)
[2021-09-13 08:45] VITALS: BP_SYST 158
[2021-09-13] MEDS: lisinopril 5mg tablet PO SCH (08:45)
[2021-09-13] MEDS: carbidoba-levodopa 25-100mg tablet PO SCH ×3 (08:45→13:04)
[2021-09-13] MEDS: multivitamins, therapeutics tablet PO SCH (08:45)
[2021-09-13] MEDS: atorvastatin 10mg tablet PO SCH (08:45)
[2021-09-13] MEDS: carVEDilol 12.5mg tablet PO SCH (08:45)
[2021-09-13] MEDS: aspirin 81mg, enteric-coated 1 TAB TABLET.DR PO SCH (08:46)
--- NOTE | 2021-09-13 11:40 | NUR ---
Elicia ng in [facility] - 09/13/21 at 1141 by MUKUL RECEIVED A CALL FROM [facility]
--- NOTE | 2021-09-13 11:41 | NUR ---
RECEIVED A CALL FROM [facility], PT. PACKET BEING REVIEWED BY [facility] FACILITY REQUESTING A REPEAT BUN/CR LEVEL. DR. SEBASTIAN NOTIFIED.
--- NOTE | 2021-09-13 11:42 | NUR ---
[facility] AT BEDSIDE TO REDRAW BMP LEVEL.
[2021-09-13 12:08] LABS: ANION GAP 5 (8-16); BLOOD UREA NITROGEN 18 MG/DL (7-18); BUN/CREATININE RATIO 33.3 (5.4-32.0); CALCIUM 7.8 MG/DL (8.5-10.1); CHLORIDE 98 MMOL/L (99-107); CREATININE 0.54 MG/DL (0.60-1.10); GLUCOSE 149 MG/DL (70-104); POTASSIUM 4.6 MMOL/L (3.5-5.1); SODIUM 129 MMOL/L (135-145); TOTAL CARBON DIOXIDE 26.4 MMOL/L (24-32); eGFR > 90 ML/MIN
--- NOTE | 2021-09-13 12:30 | NUR ---
LUNCH TRAY DELIVERED
--- NOTE | 2021-09-13 14:13 | NUR ---
NURSE TO NURSE GIVEN TO [facility].
== END 2021-09-13 18:10 ==
LOC: ER 18:53
DX: T50.992A Poisoning by other drugs, medicaments and biological substances, intentional self-harm, initial encounter (principal); Z20.822 Contact with and (suspected) exposure to COVID-19; R45.851 Suicidal ideations; R10.84 Generalized abdominal pain; I10 Essential (primary) hypertension; E11.9 Type 2 diabetes mellitus without complications; G89.29 Other chronic pain; Z86.73 Personal history of transient ischemic attack (TIA), and cerebral infarction without residual deficits; Z86.711 Personal history of pulmonary embolism; Z88.5 Allergy status to narcotic agent; Z88.8 Allergy status to other drugs, medicaments and biological substances; Z79.82 Long term (current) use of aspirin; Z79.899 Other long term (current) drug therapy; Y92.89 Other specified places as the place of occurrence of the external cause
CPT/HCPCS: 36415; 80048; 80053; 80305; 80320; 80329; 81003; 84443; 85025; 87635; 93005; 99285; C9803